=== PATIENT | female | born 1960 ===

== ENCOUNTER 2023-06-30 11:44 | Outpatient (AMB) | payer OTHER, SELFPAY ==
--- NOTE | 2023-06-30 11:46 | A.OFFPC_ITS ---
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 Transferring care from Dr Granger ([facility]). Medical records have not been requested and have not received. Airplane Charter Clerk Required: No Music Orchestrator: Not Required per policy Accompanied by: Self / Same As Patient Allergies No Known Allergies Allergy (Verified 06/30/23 11:53) Tobacco use date assessed: 06/30/23 Dental Screening Dental Screen Date: 06/30/23 Did you have a dental visit in the last 12 months?: Yes Did you have a dental problem in the last 6 months where you did not have access to dental care?: No Was dental information given to patient?: Patient has dentist HPI HPI Comments History of Present Illness Details 63-year-old female new patient presents today to establish care. Past medical history significant for anxiety, depression asthma, arthritis and lumbar back pain. 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 States pain is in the lower back constant burning/pinching pain. Patient reports pain is 8 at 10. States she does have pain that shoots down her left leg and into right buttocks. Denies any numbness tingling in lower extremities. Denies bowel or bladder. States did physical therapy 30 years for her back pain with not much improvement. Patient reports uses [id number] Tylenol and salonpas lidocaine patches as needed for pain with minimal relief. PHQ-9 positive for mild depression and ARTI-7 normal, off her referral for counseling however patient declines this time patient would to start on daily medication for anxiety and depression. [facility] Medical History (Updated 06/30/23 @ 12:10 by EMILY Ordonez) Renal cyst, acquired, right Hypertension Lumbar back pain Surgical History (Updated 06/30/23 @ 11:56 by SVETA Pedersen) No pertinent past surgical history Family History (Updated 06/30/23 @ 12:10 by EMILY Ordonez) Mother Diabetes Father No problems noted. 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 1. Little interest or pleasure in doing things: several days 2. Feeling down, depressed, or hopeless: several days 3. Trouble falling or staying asleep, or sleeping too much: nearly every day 4. Feeling tired or having little energy: several days 5. Poor appetite or overeating: nearly every day (over eating) 6. Feeling bad about yourself - or that you are a failure or have let yourself or your family down: not at all 7. Trouble concentrating on things, such as reading the newspaper or watching television: not at all 8. Moving or speaking so slowly that other people could have noticed. Or the opposite - being so fidgety or restless that you have been moving around a lot more than usual: not at all 9. Thoughts that you would be better off or of hurting yourself in some way: not at all Total score: 9 Depression Screening Interpretation: Positive Depression Screening Done: Yes 35623 - PHQ-9 Billing: Yes Source: Developed by Drs. Mikel Razo, Leigha Alexis, Иван Denson and colleagues, with an educational freddie from [employer]. Thrive Questionnaire Date Thrive assessed: 06/30/23 I am a: Patient What is your living situation today?: I have a steady place to live Within the past 12 months, did the food you bought not last and you didn't have the money to get more?: Never true Within the past 12 months, did you worry whether your food would run out before you got money to buy more?: Never true Do you have trouble paying for medicines?: No Do you have trouble getting transportation to medical appointments?: No Do you have trouble paying your heating and electricity bill?: No Do you have trouble taking care of your child, family member or friend?: No Do you have trouble with day-to-day activities such as bathing, preparing meals, shopping, managing finances, etc.?: No Are you currently unemployed and looking for a job?: No Are you interested in more education?: No Currently or been in a relationship where the following occur: no concerns reported AUDIT C Alcohol Use Questionnaire (AUDIT-C) 1. How often do you have a drink containing alcohol?: Never Total Score: 0 ARTI-7 AMB Questionnaire ARTI-7 Date ARTI - 7 assessed: 06/30/23 Feeling nervous, anxious, or on edge: 1 = Several days Not being able to stop or control worryin = Not at all Worrying too much about different things: 0 = Not at all Trouble relaxin = Several days Being so restless that it is hard to sit still: 0 = Not at all Becoming easily annoyed or irritable: 1 = Several days Feeling afraid as if something awful might happen: 1 = Several days Total ARTI-7 score (0-4 normal; 5-9 mild; 10-14 moderate; 15-21 severe): 4 Source: Developed by Drs. Mikel Razo, Leigha Alexis, Иван Denson and colleagues, with an educational freddie from [employer]. ARTI-7 Assessment Billing ARTI-7 Assessment Tool: ARTI-7 Assessment 52783 Review of Systems Const Denies chills, Denies fatigue, Denies fever(s) and Denies poor appetite Eyes Denies no additional complaints ENT Reports Normal hearing present Card Denies chest pain, Denies syncope, Denies rapid heart rate and Denies dyspnea Resp Denies cough and Denies dyspnea GI Denies change in stool character, Denies constipation, Denies diarrhea, Denies nausea and Denies vomiting Denies urinary frequency, Denies dysuria and Denies urinary urgency Musc Reports back pain, Denies numbness, Reports radiating pain into limb and Denies tingling Neuro Reports Normal hearing present, Denies confusion, Denies syncope, Denies numbness and Denies tingling Psych Denies confusion Endo Denies fatigue Physical exam (Primary Care) Vital Signs: Last Vital Signs Pulse 90 06/30/23 11:49 BP 130/62 06/30/23 11:49 Pulse Ox 97 06/30/23 11:49 Oxygen Delivery Method Room Air 06/30/23 11:49 BMI result Body Mass Index 32.4 Tobacco/Smoking Status: Tobacco use Status Tobacco use date assessed 06/30/23 06/30/23 11:59 Patient Tobacco Use Status Former Tobacco user (14 06/30/23 11:59 years ago) e-Cigarette/Vaping Use Never Used 06/30/23 11:59 PHQ-9: PHQ-9 Score PHQ-9: Total score 9 06/30/23 11:59 Depression Screening Interpretation: Positive Thrive Assessment: Date of Thrive Assessment Date Thrive assessed 06/30/23 06/30/23 11:59 Currently or been in a relationship where the following occur: no concerns reported Const General: No confusion Orientation/consciousness: No confusion HENMT Head: Yes normocephalic and Yes atraumatic Eyes Conjunctivae: conjunctivae normal Chest Chest palpation & inspection: normal inspection of the chest Resp Effort & Inspection: normal respiratory effort Auscultation: clear to auscultation bilaterally, no crackles, no rhonchi and no wheezes Cardio Rate: regular rate Rhythm: regular rhythm Heart sounds: S1 normal heart sound present and S2 normal heart sound present Peripheral pulses: dorsalis pedis present GI Inspection: Yes normal to inspection Neuro General: No confusion Cranial nerves: Yes Normal hearing present Extrem General: No edema Assessment and Plan Assessment & Plan (1) Anxiety: Code(s): F41.9 - Anxiety disorder, unspecified Plan: Escitalopram 10 mg daily sent to patient's pharmacy. Declined counseling referral. (2) Depression: Code(s): F32.A - Depression, unspecified Plan: Escitalopram 10 mg daily sent to patient's pharmacy. Declined counseling referral. (3) Lumbar back pain: Code(s): M54.50 - Low back pain, unspecified Plan: Lumbar spine x-ray ordered. Can continue on [id number] Tylenol and lidocaine patches as needed, of fered to send prescription for lidocaine patches however patient declined states she will continue to by Salonpas OTC. Referral entered to physical therapy Follow-up in 2 months if no improvement lumbar back pain following physical therapy will consider additional imaging with MRI. (4) Asthma: Code(s): J45.909 - Unspecified asthma, uncomplicated Plan: Patient reports previously on rescue inhaler if needed but has not required an inhaler recently Plan Follow-up in 2 months Keep annual physical exam scheduled in September with Dr. Montano Orders: Orders Comprehensive [place]. Panel Fast Today F41.9 - Anxiety disorder, unspecified Complete Blood Count Auto Diff Today Z13.0 - Encounter for screening for diseases of the blood and blood-forming organs and certain disorders involving the immune mechanism Lipid Panel Today Z13.220 - Encounter for screening for lipoid disorders XR lumbar spine 2-3V Today M54.50 - Low back pain, unspecified PT Evaluation and Treatment Today M54.50 - Low back pain, unspecified TSH reflex Free T4 Today Z13.29 - Encounter for screening for other suspected endocrine disorder Vitamin D 25-OH Total Today Z13.21 - Encounter for screening for nutritional disorder Medications: New escitalopram oxalate 10 mg PO DAILY 30 tabs 3RF F32.A - Depression, unspecified, F41.9 - Anxiety disorder, unspecified Coding Level of Care Code New Pt Level 4 (63567) Diagnoses Anxiety F41.9 Depression F32.A Lumbar back pain M54.50 Asthma J45.909 Additional Codes ARTI-7 Assessment Billing - ARTI-7 Assessment Tool: ARTI-7 Assessment 40874 ([id number])
[2023-06-30 11:49] VITALS: BP 130/62; PULSE 90; O2SAT 97; BMI 32.4
== END 2023-06-30 12:28 | disposition home or self-care (01) ==
PROVIDERS: Visit Provider Nurse Practitioner Family
DX: J45.909 Unspecified asthma, uncomplicated (principal); M54.50 Low back pain, unspecified; F41.9 Anxiety disorder, unspecified; F32.A Depression, unspecified
CPT/HCPCS: 96127; 99204

== ENCOUNTER 2023-07-02 09:09 | Outpatient (REF) | payer OTHER, SELFPAY ==
--- NOTE | ~2023-07-02 | XR_ITS ---
EXAMINATION: XR LUMBOSACRAL SPINE CLINICAL INFORMATION: Low back pain. COMPARISON: None available. TECHNIQUE: 3 views of the lumbosacral spine. FINDINGS: Mild rightward curvature of the lumbar spine. Advanced degenerative changes with abundant hypertrophic change in the imaged lower thoracic spine. Transitional anatomy present with asymmetric articulation of L5 with the sacral ala on the left with associated with sclerosis. 2 clips in the pelvis. Facet arthritis in the [id number]-vs-[id number] lumbar spine. Advanced multilevel lumbar spondylosis with loss of disc space height most notable at L4-L5 and L5-S1. Grade 1 anterolisthesis of L4 on L5. Possible spondylolysis at L5 is difficult to evaluate overlying bony structures. XR/XR lumbar spine 2-3V IMPRESSION: 1. Transitional anatomy present with asymmetric articulation of L5 with the sacral ala on the left with associated with sclerosis. 2. Advanced multilevel lumbar spondylosis with loss of disc space height most notable at L4-L5 and L5-S1. Grade 1 anterolisthesis of L4 on L5.
== END 2023-07-02 09:10 | disposition home or self-care (01) ==
LOC: HO.XRAY 09:09
PROVIDERS: PCP Internal Medicine; Visit Provider Nurse Practitioner Family
DX: M54.50 Low back pain, unspecified (principal)
CPT/HCPCS: 72100

== ENCOUNTER 2023-07-03 07:47 | Outpatient (REF) | payer OTHER, SELFPAY ==
[2023-07-03 08:06] LABS: MANUAL DIFF FLAG NO
[2023-07-03 08:12] LABS: Basophils Percent Auto 0.6 % (0-2); Eosinophils Absolute Auto 0.3 X10*3/uL (0.0-0.4); Eosinophils Percent Auto 3.8 % (0-4); Hemoglobin 14.4 g/dl (12.0-16.0); Imm Gran Abs Auto 0.01 X10*3/uL (0.00-0.03); Imm Gran Pct Auto 0.1 % (0.0-0.4); Lymphocytes Percent Auto 28.8 % (20-40); Mean Corpuscular HGB Conc 32.7 g/dl (31.0-35.0); Mean Corpuscular Hemoglobin 29.5 pg (27.0-33.0); Mean Corpuscular Volume 90.2 fL (80.0-98.0); Mean Platelet Volume 8.3 fL (9.4-12.3); Monocytes Absolute Auto 0.5 X10*3/uL (0.1-1.2); Monocytes Percent Auto 7.8 % (2-11); Neutrophils Absolute Auto 4.1 x10*3/uL (2.0-8.3); Neutrophils Percent Auto 58.9 % (45-73); Platelet Count 307 X10*3/uL (160-400); Red Blood Count 4.88 X10*6/uL (4.20-5.50); Red Cell Distribution Width 13.5 % (11.0-16.0); White Blood Count 6.9 X10*3/uL (4.8-10.8)
[2023-07-03 08:42] LABS: Alanine Aminotransferase 29 U/L (0-31); Albumin Level 4.1 g/dL (3.5-5.0); Alkaline Phosphatase 56 U/L (39-117); Anion Gap 14 (12-20); Aspartate Amino Transferase 23 U/L (5-31); Bilirubin Total 0.5 mg/dL (0.0-1.0); Blood Urea Nitrogen 10 mg/dL (9-16); Calcium 9.4 mg/dL (8.4-10.2); Carbon Dioxide 23 mmol/L (22-29); Chloride 106 mmol/L (96-108); Cholesterol 189 mg/dL (<200); Estimated Glomerular Filt Rate > 60; Glucose Fasting 94 mg/dL (60-99); HDL Cholesterol 66 mg/dL (>40); LDL Cholesterol Calculated 107 mg/dL (<100); Potassium 4.4 mmol/L (3.3-5.1); Sodium 139 mmol/L (135-145); Total Protein 7.4 g/dL (6.5-8.0); Triglycerides 83 mg/dL (<150)
[2023-07-03 08:58] LABS: TSH reflex Free T4 1.72 uIU/mL (0.32-4.0); Vitamin D 25-OH Total 38.4 ng/mL (>30)
== END 2023-07-03 07:48 | disposition home or self-care (01) ==
LOC: HO.LAB 07:47
PROVIDERS: PCP Internal Medicine; Visit Provider Nurse Practitioner Family
DX: Z13.21 Encounter for screening for nutritional disorder (principal); Z13.29 Encounter for screening for other suspected endocrine disorder; Z13.220 Encounter for screening for lipoid disorders; Z13.0 Encounter for screening for diseases of the blood and blood-forming organs and certain disorders involving the immune mechanism; F41.9 Anxiety disorder, unspecified
CPT/HCPCS: 36415; 80053; 80061; 82306; 84443; 85025

== ENCOUNTER 2023-11-19 14:32 | Outpatient (AMB) | payer OTHER, SELFPAY ==
--- NOTE | 2023-11-19 14:35 | MHC.PC.OV ---
Vital Signs 11/19/23 14:37 Height 5 ft 3 in Weight 178 lb BMI 31.5 BP 130/80 Blood Pressure Location Lt brachial Position Sitting Intake Visit Reasons: transferring from [facility] Intake Note: Patient here transferring of care Landing Scaler Required: No Accompanied by: Self / Same As Patient Allergies No Known Allergies Allergy (Verified 11/19/23 14:58) Medication List - Last Reconciled 11/19/23 by Yajaira Vasquez MD cholecalciferol (vitamin D3) 25 mcg PO DAILY escitalopram oxalate 10 mg PO DAILY estradiol 0.5 mg PO DAILY medroxyprogesterone 2.5 mg PO DAILY nabumetone 750 mg PO BID 30 days Tobacco use date assessed: 11/19/23 Dental Screening Dental Screen Date: 11/19/23 Did you have a dental visit in the last 12 months?: No Did you have a dental problem in the last 6 months where you did not have access to dental care?: No Was dental information given to patient?: Patient declined HPI HPI Comments History of Present Illness Details This is a 63-year-old female with mild major depression, anxiety and insomnia that complains of epigastric pain and nausea that has been happening for few weeks. I will order upper GI series and start her on ondansetron as needed to see if this helps. Depression and insomnia still present and she would like escitalopram to be increased. I recommend to take it at bedtime. [facility] Medical History (Updated 11/19/23 @ 16:27 by Yajaira Vasquez MD) Depression Renal cyst, acquired, right Hypertension Lumbar back pain Surgical History No pertinent past surgical history Family History Mother Diabetes Father No problems noted. 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 1. Little interest or pleasure in doing things: not at all 2. Feeling down, depressed, or hopeless: several days 3. Trouble falling or staying asleep, or sleeping too much: several days 4. Feeling tired or having little energy: several days 5. Poor appetite or overeating: not at all 6. Feeling bad about yourself - or that you are a failure or have let yourself or your family down: not at all 7. Trouble concentrating on things, such as reading the newspaper or watching television: not at all 8. Moving or speaking so slowly that other people could have noticed. Or the opposite - being so fidgety or restless that you have been moving around a lot more than usual: not at all 9. Thoughts that you would be better off or of hurting yourself in some way: not at all Total score: 3 Depression Screening Interpretation: Positive Depression Screening Follow-up: Existing condition and In treatment Depression Screening Done: Yes 49401 - PHQ-9 Billing: Yes Source: Developed by Drs. Mikel Razo, Leigha Alexis, Иван Denson and colleagues, with an educational freddie from [employer]. Thrive Questionnaire Date Thrive assessed: 11/19/23 I am a: Patient What is your living situation today?: I have a steady place to live Within the past 12 months, did the food you bought not last and you didn't have the money to get more?: Never true Within the past 12 months, did you worry whether your food would run out before you got money to buy more?: Never true Do you have trouble paying for medicines?: No Do you have trouble getting transportation to medical appointments?: No Do you have trouble paying your heating and electricity bill?: No Do you have trouble taking care of your child, family member or friend?: No Do you have trouble with day-to-day activities such as bathing, preparing meals, shopping, managing finances, etc.?: No Are you currently unemployed and looking for a job?: No Are you interested in more education?: No Please select the resources that you would like help with: None Currently or been in a relationship where the following occur: no concerns reported THRIVE Score: 0 AUDIT C Alcohol Use Questionnaire (AUDIT-C) 1. How often do you have a drink containing alcohol?: Never Total Score: 0 ARTI-7 AMB Questionnaire ARTI-7 Date ARTI - 7 assessed: 11/19/23 Feeling nervous, anxious, or on edge: 3 = Nearly every day Not being able to stop or control worryin = Not at all Worrying too much about different things: 1 = Several days Trouble relaxin = Several days Being so restless that it is hard to sit still: 0 = Not at all Becoming easily annoyed or irritable: 1 = Several days Feeling afraid as if something awful might happen: 0 = Not at all Total ARTI-7 score (0-4 normal; 5-9 mild; 10-14 moderate; 15-21 severe): 6 Source: Developed by Drs. Mikel Razo, Leigha Alexis, Иван Denson and colleagues, with an educational freddie from [employer]. ARTI-7 Assessment Billing ARTI-7 Assessment Tool: ARTI-7 Assessment 83247 Review of Systems Const All systems reviewed & are unremarkable except as noted in HPI and below Eyes Reports no additional complaints, Denies change in vision and Denies other visual disturbances Card Denies chest pain at rest, Denies chest pain with activity, Denies edema, Denies irregular heart rhythm, Denies claudication, Denies dyspnea, Denies dyspnea on exertion, Denies orthopnea, Denies paroxysmal nocturnal dyspnea and Denies slow heart rate Resp Denies cough, Denies dyspnea and Denies dyspnea on exertion GI Denies abdominal pain, Denies change in bowel habits, Denies excessive flatus, Denies nausea and Denies vomiting Denies urinary incontinence, Denies urinary hesitancy and Denies urinary urgency Musc Denies abnormal gait, Denies atrophy, Denies deformity and Denies limited range of motion Skin/Breast Denies bleeding lesions, Denies changing lesions and Denies rash Neuro Denies abnormal gait and Denies lack of coordination Physical exam (Primary Care) Vital Signs: Last Vital Signs BP 130/80 11/19/23 14:37 BMI result Body Mass Index 31.5 Tobacco/Smoking Status: Tobacco use Status Tobacco use date assessed 11/19/23 11/19/23 14:44 Patient Tobacco Use Status Former Tobacco user (14 11/19/23 14:44 years ago) Tobacco use type Cigarette 11/19/23 14:44 e-Cigarette/Vaping Use Never Used 11/19/23 14:44 PHQ-9: PHQ-9 Score PHQ-9: Total score 3 11/19/23 15:03 Depression Screening Interpretation: Positive Depression Screening Follow-up: Existing condition and In treatment Thrive Assessment: Date of Thrive Assessment Date Thrive assessed 11/19/23 11/19/23 14:44 Currently or been in a relationship where the following occur: no concerns reported Eyes General: appearance normal, both eyes and all related structures Eyelids: Yes eyelids normal Conjunctivae: conjunctivae normal Neck Neck: Yes normal visual inspection and Yes supple Resp Effort & Inspection: normal respiratory effort Auscultation: clear to auscultation bilaterally Cardio Jugular venous distension: no JVD Rate: regular rate Rhythm: regular rhythm Heart sounds: S1 normal heart sound present and S2 normal heart sound present Extrem General: Yes full ROM Assessment and Plan Assessment & Plan (1) Mild major depression: Code(s): F32.0 - Major depressive disorder, single episode, mild Plan: Increase escitalopram to 20 mg. (2) Epigastric pain: Code(s): R10.13 - Epigastric pain Plan: Upper GI series ordered. (3) Anxiety: Code(s): F41.9 - Anxiety disorder, unspecified Plan: Increase escitalopram to 20 mg. (4) Insomnia: Code(s): G47.00 - Insomnia, unspecified Qualifiers: Insomnia type: primary Qualified Code(s): F51.01 - Primary insomnia Plan: Increase escitalopram to 20 mg. Orders: Orders [place] upper GI series Today R10.13 - Epigastric pain Medications: New ondansetron 8 mg PO Q12H 3 days PRN 6 tabs 0RF nausea and vomiting escitalopram oxalate 20 mg PO BEDTIME 90 days 90 tabs 1RF F32.0 - Major depressive disorder, single episode, mild, F41.9 - Anxiety disorder, unspecified Discontinued escitalopram oxalate Discontinued Reason: No Longer Medically Relevant 10 mg PO DAILY 30 tabs 3RF F32.A - Depression, unspecified, F41.9 - Anxiety disorder, unspecified Coding Level of Care Code Est Pt Level 4 (98437) Diagnoses Mild major depression F32.0 Epigastric pain R10.13 Anxiety F41.9 Primary insomnia F51.01 Insomnia type: primary Additional Codes ARTI-7 Assessment Billing - ARTI-7 Assessment Tool: ARTI-7 Assessment [id number] ([id number]) Time Spent (min) 22
[2023-11-19 14:37] VITALS: BP 130/80; BMI 31.5
== END 2023-11-19 15:13 | disposition home or self-care (01) ==
PROVIDERS: PCP Internal Medicine; Visit Provider Internal Medicine
DX: R10.13 Epigastric pain (principal); F51.01 Primary insomnia; F33.0 Major depressive disorder, recurrent, mild; F41.9 Anxiety disorder, unspecified
CPT/HCPCS: 99214

== ENCOUNTER 2024-06-02 09:09 | Outpatient (AMB) | payer OTHER, SELFPAY ==
[2024-06-02 09:12] VITALS: BP 128/84; BMI 31.7
--- NOTE | 2024-06-02 09:12 | A.OFFPC_ITS ---
Vital Signs 06/02/24 09:12 Height 5 ft 3 in Weight 179 lb BMI 31.7 BP 128/84 Blood Pressure Location Lt brachial Position Sitting Intake Visit Reasons: Annual exam Intake Note: Patient here for a physical exam Generation Engineer Required: No Accompanied by: Self / Same As Patient Allergies No Known Allergies Allergy (Verified 06/02/24 09:26) Medication List - Last Reconciled 06/02/24 by Yajaira Vasquez MD cholecalciferol (vitamin D3) 25 mcg PO DAILY escitalopram oxalate 20 mg PO BEDTIME 90 days estradiol 0.5 mg PO DAILY medroxyprogesterone 2.5 mg PO DAILY nabumetone 750 mg PO BID 30 days Tobacco use date assessed: 11/19/23 Fall risk assessment: No Falls in past year Last assessed Fall Risk: 06/02/24 Dental Screening Dental Screen Date: 11/19/23 HPI HPI Comments History of Present Illness Details This is a 64-year-old female with mild major depression that comes for her physical exam. On escitalopram that does not seem to be working for depression or insomnia. I told her to take half a tab for 1 week and then start mirtazapine. She will be referred to psych outpatient to adjust medication. She also has allergic rhinitis and I will start her on montelukast. Mammogram done 2023. Pap smear done 2020 with HPV negative. Colonoscopy done 2015 and next colonoscopy should be 2025. [facility] Medical History Depression Renal cyst, acquired, right Hypertension Lumbar back pain Surgical History No pertinent past surgical history Family History Mother Diabetes Father No problems noted. 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 Mikel Razo, Leigha Alexis, Иван Denson and colleagues, with an educational freddie from [employer]. Review of Systems Const All systems reviewed & are unremarkable except as noted in HPI and below Card Denies chest pain at rest, Denies chest pain with activity, Denies edema, Denies irregular heart rhythm, Denies claudication, Denies dyspnea, Denies dyspnea on exertion, Denies orthopnea, Denies paroxysmal nocturnal dyspnea and Denies slow heart rate Resp Denies cough, Denies dyspnea and Denies dyspnea on exertion GI Denies abdominal pain, Denies change in bowel habits, Denies excessive flatus, Denies nausea and Denies vomiting Denies urinary incontinence, Denies urinary hesitancy and Denies urinary urgency Musc Denies atrophy, Denies deformity and Denies limited range of motion Skin/Breast Denies bleeding lesions, Denies changing lesions and Denies rash Psych Reports abnormal sleep pattern, Reports anxiety and Reports depression Physical exam (Primary Care) Vital Signs: Last Vital Signs BP 128/84 06/02/24 09:12 BMI result Body Mass Index 31.7 BMI Assessment/Plan discussion: High BMI High, discussed plan: lifestyle, weight reduction, dietary and physical activity Tobacco/Smoking Status: Tobacco use Status Tobacco use date assessed 11/19/23 06/02/24 09:18 Patient Tobacco Use Status Former Tobacco user (14 06/02/24 09:18 years ago) Tobacco use type Cigarette 06/02/24 09:18 e-Cigarette/Vaping Use Never Used 06/02/24 09:18 Thrive Assessment: Date of Thrive Assessment Date Thrive assessed 11/19/23 06/02/24 09:18 HENMT Head: Yes normal to inspection, Yes normocephalic and Yes atraumatic Ears: external ears normal Eyes General: appearance normal, both eyes and all related structures Eyelids: Yes eyelids normal Conjunctivae: conjunctivae normal Neck Neck: Yes normal visual inspection and Yes supple Resp Effort & Inspection: normal respiratory effort Auscultation: clear to auscultation bilaterally Cardio Jugular venous distension: no JVD Rate: regular rate Rhythm: regular rhythm Heart sounds: S1 normal heart sound present and S2 normal heart sound present GI Inspection: Yes normal to inspection Palpation (GI): Soft to palpation and nontender Auscultation: normal bowel sounds Skin General skin exam: no rashes or lesions noted Neuro General: no focal motor deficits Extrem General: Yes full ROM Psych Appearance: grossly normal Assessment and Plan Assessment & Plan (1) Physical exam: Code(s): Z00.00 - Encounter for general adult medical examination without abnormal findings Plan: Repeat in a year. (2) Mild major depression: Code(s): F32.0 - Major depressive disorder, single episode, mild Plan: Discontinue escitalopram. Start mirtazapine at bedtime. Referred to psych outpatient. (3) Allergic rhinitis: Code(s): J30.9 - Allergic rhinitis, unspecified Plan: Start montelukast. Orders: Orders Comprehensive [place]. Panel Fast Today Z00.00 - Encounter for general adult medical examination without abnormal findings Vitamin D 25-OH (D2 and D3) Today E55.9 - Vitamin D deficiency, unspecified Lipid Panel Today Z00.00 - Encounter for general adult medical examination without abnormal findings Referrals Psychiatry Outpatient Consultation Service F32.0 - Major depressive disorder, single episode, mild, F41.9 - Anxiety disorder, unspecified, F51.01 - Primary insomnia Medications: New montelukast 10 mg PO BEDTIME 30 days 30 tabs 2RF mirtazapine 15 mg PO BEDTIME 90 days 90 tabs 1RF F51.01 - Primary insomnia Discontinued escitalopram oxalate Discontinued Reason: Patient Completed Course 20 mg PO BEDTIME 90 days 90 tabs 1RF F32.0 - Major depressive disorder, single episode, mild, F41.9 - Anxiety disorder, unspecified Coding Level of Care Code Est Pt Level 3 (28591) Est Pt Prev Care 40-64y(12904) Diagnoses Physical exam Z00.00 Mild major depression F32.0 Allergic rhinitis J30.9 Time Spent (min) 33
== END 2024-06-02 09:38 | disposition home or self-care (01) ==
PROVIDERS: PCP Internal Medicine; Visit Provider Internal Medicine
DX: Z00.00 Encounter for general adult medical examination without abnormal findings (principal); J30.9 Allergic rhinitis, unspecified; F32.0 Major depressive disorder, single episode, mild

== ENCOUNTER → 2024-06-02 09:09 | Outpatient (BNVA) | payer OTHER, SELFPAY | PROVIDERS: PCP Internal Medicine; Visit Provider Internal Medicine | DX: Z00.01 Encounter for general adult medical examination with abnormal findings (principal); F32.0 Major depressive disorder, single episode, mild; J30.9 Allergic rhinitis, unspecified ==

== ENCOUNTER 2024-07-05 14:43 | Outpatient (AMB) | payer OTHER, SELFPAY ==
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
== END 2024-07-05 15:49 | disposition home or self-care (01) ==
LOC: HO.HOP 14:43
PROVIDERS: PCP Internal Medicine; Visit Provider Clinical Nurse Specialist Psychiatric/Mental Health
DX: F32.0 Major depressive disorder, single episode, mild (principal); F51.01 Primary insomnia; F41.9 Anxiety disorder, unspecified
CPT/HCPCS: 90792

== ENCOUNTER → 2024-07-05 14:43 | Outpatient (BNVA) | payer OTHER, SELFPAY | PROVIDERS: PCP Internal Medicine; Visit Provider Clinical Nurse Specialist Psychiatric/Mental Health | DX: F32.0 Major depressive disorder, single episode, mild (principal); F51.01 Primary insomnia; F41.9 Anxiety disorder, unspecified | CPT/HCPCS: 90792 ==

== ENCOUNTER 2024-07-27 14:58 | Outpatient (AMB) | payer OTHER, SELFPAY ==
--- NOTE | 2024-07-27 15:09 | A.OFFPC_ITS ---
Vital Signs 07/27/24 15:12 Height 5 ft 3 in Weight 182 lb BMI 32.2 BP 132/80 Blood Pressure Location Lt brachial Position Sitting Intake Visit Reasons: Cough Explosive Technician Required: No Accompanied by: Self / Same As Patient Allergies No Known Allergies Allergy (Verified 07/27/24 15:37) Medication List - Last Reconciled 07/27/24 by Yajaira Vasquez MD cholecalciferol (vitamin D3) 25 mcg PO DAILY duloxetine (Cymbalta) 30 mg PO DAILY estradiol 0.5 mg PO DAILY hydroxyzine HCl 25 mg PO BEDTIME medroxyprogesterone 2.5 mg PO DAILY montelukast 10 mg PO BEDTIME 30 days nabumetone 750 mg PO BID 30 days Tobacco use date assessed: 11/19/23 Fall risk assessment: No Falls in past year Last assessed Fall Risk: 07/27/24 Dental Screening Dental Screen Date: 07/27/24 Did you have a dental visit in the last 12 months?: No Was dental information given to patient?: Patient has dentist HPI HPI Comments History of Present Illness Details This is a 64 year old female with fibromyalgia, mild major depression and low vitamin D that comes today for follow up on her conditions. Depression and fibromyalgia stable with duloxetine. On vitamin D supplements for low vitamin D. No chest pain or shortness of breath. No cough. [facility] Medical History (Updated 07/27/24 @ 17:38 by Yajaira Vasquez MD) Depression Renal cyst, acquired, right Hypertension Lumbar back pain Surgical History No pertinent past surgical history Family History Mother Diabetes Father No problems noted. 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 Mikel Razo, Leigha Alexis, Иван Denson and colleagues, with an educational freddie from [employer]. Review of Systems Const All systems reviewed & are unremarkable except as noted in HPI and below Card Denies chest pain at rest, Denies chest pain with activity, Denies edema, Denies irregular heart rhythm, Denies claudication, Denies dyspnea, Denies dyspnea on exertion, Denies orthopnea, Denies paroxysmal nocturnal dyspnea and Denies slow heart rate Resp Denies cough, Denies dyspnea and Denies dyspnea on exertion Physical exam (Primary Care) Vital Signs: Last Vital Signs BP 132/80 07/27/24 15:12 BMI result Body Mass Index 32.2 BMI Assessment/Plan discussion: High BMI High, discussed plan: lifestyle, weight reduction, dietary and physical activity Tobacco/Smoking Status: Tobacco use Status Tobacco use date assessed 11/19/23 07/27/24 15:14 Patient Tobacco Use Status Former Tobacco user (07/27/24 15:14 years ago) Tobacco use type Cigarette 07/27/24 15:14 e-Cigarette/Vaping Use Never Used 07/27/24 15:14 Thrive Assessment: Date of Thrive Assessment Date Thrive assessed 11/19/23 07/27/24 15:14 Resp Effort & Inspection: normal respiratory effort Auscultation: clear to auscultation bilaterally Cardio Jugular venous distension: no JVD Rate: regular rate Rhythm: regular rhythm Heart sounds: S1 normal heart sound present and S2 normal heart sound present Extrem General: Yes full ROM Office Procedures Flu Questionnaire Does the patient have a severe egg allergy?: No Does the patient have severe life threatening allergies?: No Does the patient have a fever or illness today?: No Has the patient ever had Guillain-[place] Syndrome?: No Has the patient ever had any past reaction to a flu shot?: No Immunizations Fluarix Triv [id number] (PF) 45 mcg (15 mcg x 3)/0.5 mL IM syringe Performing Provider: Yajaira Vasquez MD [facility] [place] [facility] Administered by: SVETA Shah on 07/27/24 15:53 Dose Route Admin Location Dispensed Lot Number Expiration Date NDC [place] Kn[place] 0.5 mL IM Right Deltoid 0.5 mL [id number] 03/13/25 [id number] [place] VIS Given Date VIS Provided VIS Publication Date 07/27/24 Single Vaccine 21 Eligibility Eligibility Date Funding Source Not VFC Eligible 07/27/24 Private Coding Level of Care Code Est Pt Level 3 (96094) Complex EM visit Add On G2211 Diagnoses Mild major depression F32.0 Fibromyalgia M79.7 Hypovitaminosis D E55.9 Time Spent (min) 19 Assessment & Plan Assessment & Plan (1) Mild major depression: Code(s): F32.0 - Major depressive disorder, single episode, mild Category: Medical Plan: Continue Duloxetine. (2) Fibromyalgia: Code(s): M79.7 - Fibromyalgia Category: Medical Plan: Continue Duloxetine. (3) Hypovitaminosis D: Code(s): E55.9 - Vitamin D deficiency, unspecified Category: Medical Plan: Continue Vit D supplements. Orders: Orders Vitamin D 25-OH Total Today E55.9 - Vitamin D deficiency, unspecified Influenza [phone] Immunization Today Z23 - Encounter for immunization
[2024-07-27 15:12] VITALS: BP 132/80; BMI 32.2
== END 2024-07-27 15:53 | disposition home or self-care (01) ==
PROVIDERS: PCP Internal Medicine; Visit Provider Internal Medicine
DX: F32.0 Major depressive disorder, single episode, mild (principal); M79.7 Fibromyalgia; E55.9 Vitamin D deficiency, unspecified; Z23 Encounter for immunization

== ENCOUNTER → 2024-07-27 14:58 | Outpatient (BNVA) | payer OTHER, SELFPAY | PROVIDERS: PCP Internal Medicine; Visit Provider Internal Medicine | DX: F32.0 Major depressive disorder, single episode, mild (principal); M79.7 Fibromyalgia; E55.9 Vitamin D deficiency, unspecified; Z79.899 Other long term (current) drug therapy; Z23 Encounter for immunization | CPT/HCPCS: 90471; 90656 ==

== ENCOUNTER 2024-08-01 16:16 | Outpatient (AMB) | payer OTHER, SELFPAY ==
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
== END 2024-08-01 16:44 | disposition home or self-care (01) ==
LOC: HO.HOP 16:16
PROVIDERS: PCP Internal Medicine; Visit Provider Clinical Nurse Specialist Psychiatric/Mental Health
DX: F32.1 Major depressive disorder, single episode, moderate (principal); F41.9 Anxiety disorder, unspecified
CPT/HCPCS: 99214

== ENCOUNTER → 2024-08-01 16:16 | Outpatient (BNVA) | payer OTHER, SELFPAY | PROVIDERS: PCP Internal Medicine; Visit Provider Clinical Nurse Specialist Psychiatric/Mental Health ==

== ENCOUNTER 2024-08-29 09:10 | Outpatient (AMB) | payer OTHER, SELFPAY ==
--- OUTSIDE RECORDS SUMMARY | 2024-08-29 09:16 | XMS_ITS | Patient Health Record ---
Author Organization [facility] Address [address] [place] [address] Care Team Providers Care Solderer Dipper Name Role Phone Eun DILL, [facility] Primary Care Provider Unavailab Benito Reyes Unavailable [phone] Allergies Allergen (clinical drug ingredient) Drug/Non Drug Allergy documented on EMR Reaction Allergy Type Onset Date Status seasonal (uncoded) Unknown Allergy A ctive Reason For Referral No Information Medications Medication SIG (Take, Route, Frequency, Duration) Notes Start Date End Date Status Estradiol 0.5 MG 1 tablet Orally Once a day for 30 day(s) Active ASO Ankle/Foot Stablizing AFO As directe d Wear Daily for as needed 07/03/2022 Active D3 Active medroxyPROGESTERone Acetate 2.5 MG 1 tablet with food Orally Once a day Active Social History Tobacco Use: Social History Observation Description Date Details (start date - stop date) Former Smoker NA - NA Tobacco Use/Smoking Question Answer Notes Are you a: former smoker Alcohol Screen Question Answer Notes Did you have a drink containing alcohol in the p ast year? No Points 0 Interpretation Negative Tobacco use other than smoking: Question Answer Notes Are you an other tobacco user? No Problems Problem Type SNOMED Code ICD Code Onset Dates Problem Status W/U Status Risk Notes Problem Achilles bursitis (067561180) Achilles tendinitis, left leg (M76.62) Active confirmed Problem Peroneal tendinitis (80434072) Peroneal tendinitis, left leg (M76.72) Active confirmed Plan Of Treatment Pending Test Test Name Order Date X ray : Ankle, left 3V 07/03/2022 [id number] TENDON SHEATH/LIGAMENT 1 Insurance Providers Payer Name Payer Address Payer Phone Subscriber Number Group Number Insured Name Patient Relationship to Insured Coverage Start Date Coverage End Date [employer] [address] [place]issa [place]ienne, [place] [id number] [phone] [id number] Smitha Willis Self - patient is the insured Medical (General) History Medical History History ICD Code Anxiety Arthritis asthma Back,Hip,and Knee pain Depression Chicken pox cyst, kidney Surgical History Surgery Date(Month/Year)
--- NOTE | 2024-08-29 09:21 | MHC.PC.OV ---
Vital Signs 08/29/24 09:23 Height 5 ft 3 in Weight 186 lb 2 oz BMI 33.0 BP 120/80 Blood Pressure Location Lt brachial Position Sitting Pulse 88 Pulse Source Pulse Oximeter Pulse Oximetry (%) 97 Oxygen Delivery Method Room Air Intake Visit Reasons: Bronchitis Intake Note: Patient is here to follow up on Bronchitis. Software Configuration Specialist Required: No Hog Sawyer: Not Required per policy Accompanied by: Self / Same As Patient Allergies No Known Allergies Allergy (Verified 08/29/24 09:53) Medication List - Last Reconciled 08/29/24 by Karl Hare MD cholecalciferol (vitamin D3) 25 mcg PO DAILY estradiol 0.5 mg PO DAILY hydroxyzine HCl 50 mg (2 x 25 mg) PO BEDTIME medroxyprogesterone 2.5 mg PO DAILY montelukast 10 mg PO BEDTIME 30 days nabumetone 750 mg PO BID 30 days Tobacco use date assessed: 08/29/24 Fall risk assessment: No Falls in past year Last assessed Fall Risk: 08/29/24 Dental Screening Dental Screen Date: 07/27/24 HPI Bronchitis HPI Details Patient presents for a sick visit. Reporting symptoms of sinus congestion, sore throat and difficulty swallowing. Low-grade fever. No family member is sick. No recent travel. Patient reports symptoms of malaise and fatigue. [facility] Medical History Depression Renal cyst, acquired, right Hypertension Lumbar back pain Surgical History No pertinent past surgical history Family History Mother Diabetes Father No problems noted. 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 Mikel Razo, Leigha Alexis, Иван Denson and colleagues, with an educational freddie from [employer]. Physical exam (Primary Care) Vital Signs: Last Vital Signs Pulse 88 08/29/24 09:23 BP 120/80 08/29/24 09:23 Pulse Ox 97 08/29/24 09:23 Oxygen Delivery Method Room Air 08/29/24 09:23 BMI result Body Mass Index 33.0 Tobacco/Smoking Status: Tobacco use Status Tobacco use date assessed 08/29/24 08/29/24 09:45 Patient Tobacco Use Status Former Tobacco user (14 08/29/24 09:45 years ago) Tobacco use type Cigarette 08/29/24 09:45 e-Cigarette/Vaping Use Never Used 08/29/24 09:45 Thrive Assessment: Date of Thrive Assessment Date Thrive assessed 11/19/23 08/29/24 09:45 Const General: cooperative and healthy appearing Nutritional Appearance: well nourished Orientation/consciousness: patient oriented x3 Limitations: no limitations HENMT Head: Yes normal to inspection Eyes General: appearance normal, both eyes and all related structures Neck Neck: Yes normal visual inspection Chest Chest palpation & inspection: normal palpation of entire chest wall Resp Effort & Inspection: normal respiratory effort Neuro General: patient oriented x3 Coding Level of Care Code Est Pt Level 3 (06947) Diagnoses Upper respiratory tract infection J06.9 Assessment & Plan Assessment & Plan (1) Upper respiratory tract infection: Code(s): J06.9 - Acute upper respiratory infection, unspecified Plan: Antibiotics ordered. Increase fluid intake. Tylenol for aches and pains. If symptoms worsen, follow-up here for a recheck.
[2024-08-29 09:23] VITALS: BP 120/80; PULSE 88; O2SAT 97; BMI 33.0
== END 2024-08-29 10:13 | disposition home or self-care (01) ==
PROVIDERS: PCP Internal Medicine; Visit Provider Internal Medicine
DX: J06.9 Acute upper respiratory infection, unspecified (principal)

== ENCOUNTER 2024-08-30 09:10 | Outpatient (AMB) | payer SELFPAY ==
--- NOTE | 2024-08-30 09:14 | MHC.OFFVISPS ---
Intake Intake Visit Reasons: f/u consultation Alterations Supervisor Required: Yes Allergies No Known Allergies Allergy (Verified 08/29/24 09:53) Medication List - Last Reconciled 08/30/24 by Barb Dumas APRN albuterol sulfate 90 mcg/actuation 1 inh inhalation QID PRN azithromycin take 500 mg today (day 1), then 250 mg for 4 days (days 2-5) PO cholecalciferol (vitamin D3) 25 mcg PO DAILY duloxetine 60 mg PO DAILY estradiol 0.5 mg PO DAILY hydroxyzine HCl 50 mg (2 x 25 mg) PO BEDTIME medroxyprogesterone 2.5 mg PO DAILY montelukast 10 mg PO BEDTIME 30 days nabumetone 750 mg PO BID 30 days prednisone 60 mg (3 x 20 mg) PO DAILY HPI- Psychiatric Chief Complaint: f/u consultation HPI Narrative: pt stopped cymbalta and hydroxyzine. she felt she was gaining weight from cymbalta was causing weight gain; the hydroxyzine did not help sleep; she restarted the remeron and took 30 mg at bedtime x 10 days. tolerating the remron and sleeping 6-7 hours with one awakening to use bathroom. PHQ9= 16 GAD7=13. No SI or HI Past Psychiatric History: no IPLOC, no PHP no IOP , no hx of therapy or psychiatry in past Subjective Subjective Subjective Medication Compliance: Yes Review of Systems Medical Review of Systems: unchanged Mental Status Exam Mental Status Exam Patient Appearance: Well Grooomed and Appropriate Patient Orientation: Person, Place, Time and Situation Level of Consciousness: Awake, Appropriate and Alert Patient Behavior: Appropriate and Cooperative Mood Description: Calm Affect Description: Calm Patient Cognition Impaired: No Ability to Follow Directions: Good Speech Pattern: Clear and Appropriate Memory Description: Intact Hallucinations: None Delusions: Not Present Thought Process: Intact and Goal Oriented Thought Content: positive for Intact and positive for Goal Oriented Judgement: Good Assessment and Plan Assessment & Plan (1) Major depressive disorder, single episode, moderate: Status: Acute Code(s): F32.1 - Major depressive disorder, single episode, moderate (2) Anxiety: Status: Acute Code(s): F41.9 - Anxiety disorder, unspecified Plan continue remeron 30 mg at bedtime hydroxyzine 50 mg at bedtime Medications: New mirtazapine (Remeron) 30 mg PO BEDTIME 90 tabs 0RF Discontinued hydroxyzine HCl Take 20 minutes before bedtime Discontinued Reason: Doctor's Order 50 mg (2 x 25 mg) PO BEDTIME 60 tabs 2RF Counseling and coordination of Care Pt. Self Management counseling: Maintenance-social rhythm, Mod caffeine/ETOH intake and Behavior activation Medication management counseling: Effectiveness, Side effects, Dosing range, Duration, Drug interaction and Adherence Diagnosis and Prognosis Counseling: Accuracy of diagnosis, Prognosis over time, Impact of diagnosis on life functions, Impact of family relationship, Problematic behaviors secondary to diagnosis and Adequacy of current interventions Details: I spent 40 minutes reviewing the record, seeing the patient and documenting in the medical record. Counseling provided to the patient/caregiver as outlined below. Addressed patient/caregiver concerns regarding current medication regime including effective adherence. Addressed patient/caregiver concerns regarding diagnosis and prognosis including accuracy of diagnosis, prognosis over time, impact of diagnosis. Addressed patient/caregiver concerns regarding impact of recent stressors. [facility] Medical History Depression Renal cyst, acquired, right Hypertension Lumbar back pain Surgical History No pertinent past surgical history Family History Mother Diabetes Father No problems noted. 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 She attends [employer] 3 to 4 times a week. Substance History: none Trauma History: denies childhood; in adulthood loss of son Coding Level of Care Code Est Pt Level 4 (07787) Diagnoses Major depressive disorder, single episode, moderate F32.1 Anxiety F41.9
--- OUTSIDE RECORDS SUMMARY | 2024-08-30 09:17 | XMS_ITS | Patient Health Record ---
Author Organization [facility] Address [address] [place] [address] Care Team Providers Care Doughnut Fryer Name Role Phone Eun DILL, [facility] Primary Care Provider Unavailab Benito Reyes Unavailable [phone] Allergies Allergen (clinical drug ingredient) Drug/Non Drug [...] W/U Status Risk Notes Problem Achilles bursitis (314110355) Achilles tendinitis, left leg (M76.62) Active confirmed Problem Peroneal tendinitis (00381899) Peroneal tendinitis, left leg (M76.72) Active confirmed Plan Of Treatment Pending Test Test Name Order Date X ray : Ankle, left 3V 07/03/2022 [id number] TENDON SHEATH/LIGAMENT 1 Insurance Providers Payer Name Payer Address Payer Phone Subscriber Number Group Number Insured Name Patient Relationship to Insured Coverage Start Date Coverage End Date [facility] [address] Nicolemerissa etienne, [place] [address] [phone] [id number] Smitha Willis Self - patient is the insured Medical (General) History Medical History History ICD Code Anxiety Arthritis asthma Back,Hip,and Knee pain Depression Chicken pox cyst, kidney Surgical History Surgery Date(Month/Year)
== END 2024-08-30 09:43 | disposition home or self-care (01) ==
LOC: HO.HOP 09:10
PROVIDERS: PCP Internal Medicine; Visit Provider Clinical Nurse Specialist Psychiatric/Mental Health
DX: F32.1 Major depressive disorder, single episode, moderate (principal); F41.9 Anxiety disorder, unspecified
CPT/HCPCS: 99214

== ENCOUNTER 2024-09-15 15:06 | Outpatient (AMB) | payer OTHER, SELFPAY ==
[2024-09-15 15:13] VITALS: BP 130/86; PULSE 80; O2SAT 94; BMI 33.9
--- NOTE | 2024-09-15 15:13 | MHC.PC.OV ---
Vital Signs 09/15/24 15:13 Height 5 ft 3 in Weight 191 lb 8 oz BMI 33.9 BP 130/86 Blood Pressure Location Lt brachial Position Sitting Pulse 80 Pulse Source Pulse Oximeter Pulse Oximetry (%) 94 Oxygen Delivery Method Room Air Intake Visit Reasons: Cough / fever Intake Note: The patient is here for bronchitis that has been ongoing for the past three weeks and reports worsening symptoms, including a sore throat, phlegmy cough, and post-nasal drip. The patient was previously treated but states the medications were ineffective and is now also experiencing headaches. Burning Supervisor Required: No Accompanied by: Self / Same As Patient Allergies No Known Allergies Allergy (Verified 09/15/24 15:37) Medication List - Last Reconciled 09/15/24 by Yajaira Vasquez MD albuterol sulfate 90 mcg/actuation 1 inh inhalation QID PRN cholecalciferol (vitamin D3) 25 mcg PO DAILY estradiol 0.5 mg PO DAILY medroxyprogesterone 2.5 mg PO DAILY mirtazapine (Remeron) 30 mg PO BEDTIME montelukast 10 mg PO BEDTIME 30 days nabumetone 750 mg PO BID 30 days Tobacco use date assessed: 09/15/24 Fall risk assessment: No Falls in past year Last assessed Fall Risk: 09/15/24 Dental Screening Dental Screen Date: 09/15/24 Did you have a dental visit in the last 12 months?: Yes Did you have a dental problem in the last 6 months where you did not have access to dental care?: No Was dental information given to patient?: Patient has dentist HPI HPI Comments History of Present Illness Details The patient is a 64-year-old female presenting with respiratory symptoms. The onset was three weeks ago, initially noticed at her workplace, where there was a likely exposure to illness. The patient reports pulmonary symptoms, but she is experiencing congestion and mild pain in the pharyngeal region. The patient has undergone frequent COVID-19 testing due to workplace exposure, with negative results. She has not been tested for influenza or respiratory syncytial virus (RSV). She denies ear pain but mentions some mild discomfort in the pharyngeal region. The patient also suffers from depression and anxiety, for which outpatient follow-up and medication management have been established. She reports compliance with medications, including Remeron at night for moderate major depression, and denies any current thoughts of self-harm. She quit smoking some years ago and denies current alcohol use. [facility] Medical History (Updated 09/15/24 @ 16:38 by Yajaira Vasquez MD) Depression Renal cyst, acquired, right Hypertension Lumbar back pain Surgical History No pertinent past surgical history Family History Mother Diabetes Father No problems noted. 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 1. Little interest or pleasure in doing things: more than half the days 2. Feeling down, depressed, or hopeless: nearly every day 3. Trouble falling or staying asleep, or sleeping too much: nearly every day 4. Feeling tired or having little energy: nearly every day 5. Poor appetite or overeating: nearly every day 6. Feeling bad about yourself - or that you are a failure or have let yourself or your family down: nearly every day 7. Trouble concentrating on things, such as reading the newspaper or watching television: more than half the days 8. Moving or speaking so slowly that other people could have noticed. Or the opposite - being so fidgety or restless that you have been moving around a lot more than usual: more than half the days 9. Thoughts that you would be better off or of hurting yourself in some way: not at all Total score: 21 Depression Screening Interpretation: Positive (no suicidal thoughts) Depression Screening Follow-up: Existing condition, In treatment and Follow-up Visit Requested Depression Screening Done: Yes 37242 - PHQ-9 Billing: Yes Source: Developed by Drs. Mikel Razo, Иван Perezke and colleagues, with an educational freddie from [employer]. Thrive Questionnaire Date Thrive assessed: 09/15/24 I am a: Patient What is your living situation today?: I have a steady place to live Within the past 12 months, did the food you bought not last and you didn't have the money to get more?: Never true Within the past 12 months, did you worry whether your food would run out before you got money to buy more?: Never true Do you have trouble paying for medicines?: No Do you have trouble getting transportation to medical appointments?: No Do you have trouble paying your heating and electricity bill?: No Do you have trouble taking care of your child, family member or friend?: No Do you have trouble with day-to-day activities such as bathing, preparing meals, shopping, managing finances, etc.?: No Are you currently unemployed and looking for a job?: No Are you interested in more education?: No Please select the resources that you would like help with: None Currently or been in a relationship where the following occur: No concerns reported THRIVE Score: 0 AUDIT C Alcohol Use Questionnaire (AUDIT-C) 1. How often do you have a drink containing alcohol?: Never 3. How often do you have six or more drinks on one occasion?: Never Total Score: 0 ARTI-7 AMB Questionnaire ARTI-7 Date ARTI - 7 assessed: 09/15/24 Feeling nervous, anxious, or on edge: 3 = Nearly every day Not being able to stop or control worryin = More than half the days Worrying too much about different things: 3 = Nearly every day Trouble relaxin = Nearly every day Being so restless that it is hard to sit still: 3 = Nearly every day Becoming easily annoyed or irritable: 3 = Nearly every day Feeling afraid as if something awful might happen: 2 = More than half the days Total ARTI-7 score (0-4 normal; 5-9 mild; 10-14 moderate; 15-21 severe): 19 Source: Developed by Drs. Mikel Razo, Иван Perez and colleagues, with an educational freddie from [employer]. ARTI-7 Assessment Billing ARTI-7 Assessment Tool: ARTI-7 Assessment 16356 Review of Systems Const All systems reviewed & are unremarkable except as noted in HPI and below ENT Reports nasal congestion, Reports sinus pressure and Reports sore throat Card Denies chest pain at rest, Denies chest pain with activity, Denies edema, Denies irregular heart rhythm, Denies claudication, Reports dyspnea, Denies orthopnea, Denies paroxysmal nocturnal dyspnea and Denies slow heart rate Resp Reports chest congestion, Reports cough, Reports excessive phlegm production, Reports dyspnea and Reports wheezing Aller/Immun Reports wheezing Physical exam (Primary Care) Vital Signs: Last Vital Signs Pulse 80 09/15/24 15:13 BP 130/86 09/15/24 15:13 Pulse Ox 94 09/15/24 15:13 Oxygen Delivery Method Room Air 09/15/24 15:13 BMI result Body Mass Index 33.9 BMI Assessment/Plan discussion: High BMI High, discussed plan: lifestyle, weight reduction, dietary and physical activity Tobacco/Smoking Status: Tobacco use Status Tobacco use date assessed 09/15/24 09/15/24 15:25 Patient Tobacco Use Status Former Tobacco user (14 09/15/24 15:15 years ago) Tobacco use type Cigarette 09/15/24 15:15 e-Cigarette/Vaping Use Never Used 09/15/24 15:15 PHQ-9: PHQ-9 Score PHQ-9: Total score 21 09/15/24 16:12 Depression Screening Interpretation: Positive (no suicidal thoughts) Depression Screening Follow-up: Existing condition, In treatment and Follow-up Visit Requested Thrive Assessment: Date of Thrive Assessment Date Thrive assessed 09/15/24 09/15/24 15:25 Currently or been in a relationship where the following occur: No concerns reported [facility] General nose exam: Nasal discharge present Face and sinus: Yes sinus tenderness Mouth: other (post nasal drip) Throat: Yes postnasal drainage Resp Effort & Inspection: audible wheezes Auscultation: wheezes expiratory wheezes and lower bilaterally Cardio Jugular venous distension: no JVD Rate: regular rate Rhythm: regular rhythm Heart sounds: S1 normal heart sound present and S2 normal heart sound present Extrem General: Yes full ROM Coding Level of Care Code Est Pt Level 4 (40320) Complex EM visit Add On G2211 Diagnoses URI (upper respiratory infection) J06.9 Major depressive disorder, single episode, moderate F32.1 Mild persistent asthma without complication J45.30 Asthma severity: mild Asthma persistence: persistent Asthma complication type: uncomplicated Anxiety F41.9 Additional Codes ARTI-7 Assessment Billing - ARTI-7 Assessment Tool: ARTI-7 Assessment 90349 ([id number]) PHQ-9 - 79398 - PHQ-9 Billing: Yes ([id number]) Time Spent (min) 21 Assessment & Plan Assessment & Plan (1) URI (upper respiratory infection): Code(s): J06.9 - Acute upper respiratory infection, unspecified Category: Medical (2) Major depressive disorder, single episode, moderate: Code(s): F32.1 - Major depressive disorder, single episode, moderate Category: Medical (3) Asthma: Code(s): J45.909 - Unspecified asthma, uncomplicated Category: Medical Qualifiers: Asthma severity: mild Asthma persistence: persistent Asthma complication type: uncomplicated Qualified Code(s): J45.30 - Mild persistent asthma, uncomplicated (4) Anxiety: Code(s): F41.9 - Anxiety disorder, unspecified Category: Medical Plan - Prescribe antibiotics for suspected bacterial component of respiratory illness. - Prescribe prednisone to address the respiratory symptoms and improve pulmonary function. - Recommend flu and RSV testing to determine if the respiratory illness is due to these viruses. - Continue current psychiatric medications for depression and anxiety and follow up with outpatient care. Patient was informed and verbally consented to the use of an ambient scribe for clinic note documentation during this visit. During the visit, I discussed the possibility of a viral upper respiratory infection with the patient, given the workplace exposure and onset of symptoms three weeks ago. I explained the benefits of starting antibiotics and prednisone to manage the current symptoms and improve her respiratory condition. I advised obtaining flu and RSV tests to rule out or confirm these as the cause of her symptoms. We reviewed her psychiatric medications, including the new prescription of Remeron for depression, and reinforced the importance of adhering to her medication regimen. I explained the necessity of stopping tobacco use, and she confirmed she has been abstinent for several years. I recommended she update her tests after the visit if her symptoms persist. Orders: Orders SARS-CoV2/FLU/RSV Today R09.89 - Other specified symptoms and signs involving the circulatory and respiratory systems Medications: New prednisone Take 4 tabs for the first 2 days, then 3 tabs for the next 2 days, then 2 tabs for the next 2 days 10 mg PO DIRECTED 20 tabs 0RF 8 days azithromycin Take 2 tabs the first day, then 1 tab the next 4 days 250 mg PO DAILY 6 tabs 0RF 5 days Patient Instructions: - Take all prescribed medications exactly as directed. - Complete the full course of antibiotics, even if symptoms improve. - Use prednisone as discussed to help open airways. - Proceed to get flu and RSV testing. - Continue avoiding tobacco and alcohol. - Follow up with outpatient mental health management as scheduled. - Return if symptoms worsen or new symptoms arise.
--- OUTSIDE RECORDS SUMMARY | 2024-09-15 16:36 | XMS_ITS | Patient Health Record ---
Author Organization [facility] Address [address] [place] [address] Care Team Providers Care Portfolio Accountant Name Role Phone Eun DILL, [facility] Primary Care Provider Unavailab Benito Reyes Unavailable [phone] Allergies Allergen (clinical drug ingredient) Drug/Non Drug [...] W/U Status Risk Notes Problem Achilles bursitis (246363953) Achilles tendinitis, left leg (M76.62) Active confirmed Problem Peroneal tendinitis (90676554) Peroneal tendinitis, left leg (M76.72) Active confirmed Plan Of Treatment Pending Test Test Name Order Date X ray : Ankle, left 3V 07/03/2022 [id number] TENDON SHEATH/LIGAMENT 1 Insurance Providers Payer Name Payer Address Payer Phone Subscriber Number Group Number Insured Name Patient Relationship to Insured Coverage Start Date Coverage End Date [facility] [address]mer[address] etienne, [place] [address] [id number] Smitha Willis Self - patient is the insured Medical (General) History Medical History History ICD Code Anxiety Arthritis asthma Back,Hip,and Knee pain Depression Chicken pox cyst, kidney Surgical History Surgery Date(Month/Year)
== END 2024-09-15 15:47 | disposition home or self-care (01) ==
LOC: HO.HMCH 15:06
PROVIDERS: PCP Internal Medicine; Visit Provider Internal Medicine
DX: J06.9 Acute upper respiratory infection, unspecified (principal); F32.1 Major depressive disorder, single episode, moderate; J45.30 Mild persistent asthma, uncomplicated; F41.9 Anxiety disorder, unspecified

== ENCOUNTER 2024-09-15 15:06 | Outpatient (REF) | payer OTHER, SELFPAY ==
[2024-09-15 18:08] LABS: Influenza A PCR NEGATIVE (Negative); Influenza B PCR NEGATIVE (Negative); Resp Syncy Virus RNA Qual PCR NEGATIVE (Negative); SARS COV2 PCR INHOUSE NEGATIVE (Negative)
== END 2024-09-15 15:07 | disposition home or self-care (01) ==
LOC: HO.LAB 15:06
PROVIDERS: PCP Internal Medicine; Visit Provider Internal Medicine
DX: R09.89 Other specified symptoms and signs involving the circulatory and respiratory systems (principal); J06.9 Acute upper respiratory infection, unspecified; F32.1 Major depressive disorder, single episode, moderate; J45.30 Mild persistent asthma, uncomplicated; F41.9 Anxiety disorder, unspecified
CPT/HCPCS: 0241U; 96127

== ENCOUNTER 2024-09-27 10:52 | Outpatient (AMB) | payer OTHER, SELFPAY ==
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
--- OUTSIDE RECORDS SUMMARY | 2024-09-27 12:48 | XMS_ITS | Patient Health Record ---
Author Organization [facility] Address [address] [place] [address] Care Team Providers Care Classification Analyst Name Role Phone Eun DILL, [facility] Primary Care Provider Unavailab Benito Reyes Unavailable [phone] Allergies Allergen (clinical drug ingredient) Drug/Non Drug [...] W/U Status Risk Notes Problem Achilles bursitis (909947821) Achilles tendinitis, left leg (M76.62) Active confirmed Problem Peroneal tendinitis (63445144) Peroneal tendinitis, left leg (M76.72) Active confirmed Plan Of Treatment Pending Test Test Name Order Date X ray : Ankle, left 3V 07/03/2022 [id number] TENDON SHEATH/LIGAMENT 1 Insurance Providers Payer Name Payer Address Payer Phone Subscriber Number Group Number Insured Name Patient Relationship to Insured Coverage Start Date Coverage End Date [facility] [address] Nicolemerissa etienne, [place] [id number] Smitha Willis Self - patient is the insured Medical (General) History Medical History History ICD Code Anxiety Arthritis asthma Back,Hip,and Knee pain Depression Chicken pox cyst, kidney Surgical History Surgery Date(Month/Year)
== END 2024-09-27 10:52 | disposition home or self-care (01) ==
LOC: HO.HOP 10:52
PROVIDERS: PCP Internal Medicine; Visit Provider Clinical Nurse Specialist Psychiatric/Mental Health
DX: F32.1 Major depressive disorder, single episode, moderate (principal)
CPT/HCPCS: 99214

== ENCOUNTER 2024-10-18 17:13 | Outpatient (AMB) | payer OTHER, SELFPAY ==
--- OUTSIDE RECORDS SUMMARY | 2024-10-18 17:15 | XMS_ITS | Clinical Summary ---
Author Organization [facility] Address [address] [place] [address] Care Team Providers Care Outpatient Dietitian Name Role Phone Leatha Ramirez PA-C Primary Care Provider [phone] Source Comments PLEASE NOTE, if this patient is a minor, it may be UNLAWFUL to discuss sensitive information that is contained in these records (such as FAMILY PLANNING, MENTAL HEALTH or SUBSTANCE ABUSE) with the minor patient's parent or other person without the patient's specific authorization.[facility] Allergies No known active allergies Medications lisinopril (PRINIVIL,ZESTRIL) 5 mg tablet 3 4 Active sertraline (ZOLOFT) 100 mg tabletIndications: Anxiety and depression Take 1 tablet by mouth once daily. 30 tablet 6 4 Active dextromethorphan-g uaiFENesin (ADT ROBITUSSIN PEAK CLD DM MAX) 10-200 mg/5 mL liquidIndications: Acute URI Take 10 mL by mouth every 4 to 6 (four to six) hours as needed for cough. 240 Bottle 0 6 Active acetaminophen (TYLENOL) 325 mg tabletIndications: Acute URI Take 2 Tabs by mouth every 6 (six) hours as needed for pain or fever. 30 Tab 1 6 Active orphenadrine (NORFLEX ER) 100 mg 12 hr tabletIndications: Low back pain without sciatica, unspecified back pain laterality Take 1 Tab by mouth 2 (two) times daily. Swallow whole. Do not crush or chew. 40 Tab 2 6 Active albuterol sulfate hfa 90 mcg/actuation inhalerIndications :Asthma in adult, mild intermittent, uncomplicated Inhale 2 Puffs into the lungs every 4 (four) hours as needed for shortness of breath or wheezing. 1 Inhaler 6 6 Active Active Problems Problem Noted Date Diagnosed Date Hematuria 02/18/2015 Overview (02/18/2015): [facility] uro Neg cystoscopy 2012 Fu january 2015, recurrent hematuria. Initiated work up again Breast lump in female: left 02/09/2014 Overview (02/09/2014): Biopsy done january 2014 at [facility] Negative per pt Needs mammo in 1 year BETSY (obstructive sleep apnea) 01/21/2014 Anxiety 01/21/2014 Asthma in adult 01/21/2014 Depression 01/21/2014 HTN (hypertension) 01/21/2014 H/O colonoscopy 01/21/2014 Overview (02/09/2014): Normal, 1 polyp removed ASCUS on Pap smear 09/23/2011 Overview (01/21/2014): Not clear if has seen Field Mechanical Meter Tester since then Last pap smear December 2013, results pending (at [facility] pcp) Resolved Problems Problem Noted Date Diagnosed Date Resolved Date Chronic LBP 01/21/2014 02/09/2014 Migraine headache 01/21/2014 02/09/2014 Obesity 01/21/2014 02/09/2014 Social History Tobacco Use Types Packs/Day Years Used Date Smoking Tobacco: Former Smokeless Tobacco: Former Quit: 12/19/2013 Alcohol Use Standard Drinks/Week Comments No 0 (1 standard drink = 0.6 oz pur e alcohol) QUIT 2 YEARS AG Social Connections Answer Date Recorded Social Connections and Isolation 0 05/07/2019 Financial Resource Strain Answer Date R ecorded Financial Resource Strain 0 2018 Stress Answer Date Recorded Stress 0 05/07/2019 Physical Activity Answer Date Recorded Physical Activity 0 05/07/2019 Food Insecurity Answer Date Recorded Food 0 05/07/2019 Transportation Needs Answer Date Record ed Transportation 0 05/07/2019 Housing Stability Answer Date Recorded Housing 0 05/07/2019 Safety and Environment Answer Date Raf rded Safety 0 05/07/2019 Utilities Answer Date Recorded Utilities 0 05/07/2019 Employment Answer Date Recorded Employment 0 05/07/2019 Comments No Sex and Gender Information Value Date Recorded Sex Assigned at Not on file Legal Sex Female 11:24 AM PDT Gender Identity Not on file Sexual Orientation Not on file Last Filed Vital Signs Vital Sign Reading Time Taken Comments Blood Pressure 124/80 12/20/2015 4:01 PM EDT Pulse 78 12/20/2015 4:01 PM EDT Temperature 36.4 ??C (97.6 ??F) 12/20/2015 4:01 PM ED T Respiratory Rate 14 12/20/2015 4:01 PM EDT Oxygen Saturation 95% 01/18/2015 9:39 AM EDT Inhaled Oxygen Concentration - - Weight 83.8 kg (184 lb 11.2 oz) 12/20/2015 4:01 PM EDT Height 160 cm (5' 3 ) 05/22/2014 3:42 PM EDT Body Mass Index 32.72 05/22/2014 3:42 PM EDT Plan of Treatment Not on file Insurance [facility] Member Subscriber Plan / Payer (Ef fective 2013-Present) Name:Smitha Willis Relation to Subscriber:Self Name:Smitha Willis Payer ID:[id number] Type:Indemnity Address: [address] [place] [id number] Care Teams Outpatient Dietitian Relationship Specialty Start Date End Date Leatha Ramirez PA-C [address] [place] [address] PCP - General 11/09/18
[2024-10-18 17:31] VITALS: BP 140/80; TEMP 36.4; BMI 34.0
--- NOTE | 2024-10-18 17:31 | MHC.PC.OV ---
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 Required: No Accompanied by: Self / Same As Patient Allergies No Known Allergies Allergy (Verified 10/18/24 17:43) Medication List - Last Reconciled 10/18/24 by Yajaira Vasquez MD albuterol sulfate 90 mcg/actuation 1 inh inhalation QID PRN bupropion HCl XL (Wellbutrin XL) 150 mg PO QAM cholecalciferol (vitamin D3) 25 mcg PO DAILY estradiol 0.5 mg PO DAILY medroxyprogesterone 2.5 mg PO DAILY mirtazapine (Remeron) 30 mg PO BEDTIME Tobacco use date assessed: 09/15/24 Fall risk assessment: No Falls in past year Last assessed Fall Risk: 10/18/24 Dental Screening Dental Screen Date: 09/15/24 HPI HPI Comments History of Present Illness Details The patient is a 64-year-old female presenting with respiratory distress. She reports persistent coughing that began in August. Initial medical evaluation resulted in antibiotic treatment; however, no improvement was observed. During a subsequent visit, another course of antibiotics was administered, along with prednisone, but the symptoms persisted. The patient complains of increased cough and audible wheezing, and she describes feeling breathless. She denies experiencing fever. Previous viral tests for COVID, influenza, and RSV early in September were negative. The patient's distress heightened, necessitating a return for further evaluation. She uses a rescue inhaler only during symptom episodes and mentions a worsening condition over time. [facility] Medical History Depression Renal cyst, acquired, right Hypertension Lumbar back pain Surgical History No pertinent past surgical history Family History Mother Diabetes Father No problems noted. 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 Mikel Razo, Leigha Alexis, Иван Denson and colleagues, with an educational freddie from [employer]. Review of Systems Const All systems reviewed & are unremarkable except as noted in HPI and below Card Denies chest pain at rest, Denies chest pain with activity, Denies edema, Denies irregular heart rhythm, Denies claudication, Denies dyspnea, Denies dyspnea on exertion, Denies orthopnea, Denies paroxysmal nocturnal dyspnea and Denies slow heart rate Resp Denies cough, Denies dyspnea and Denies dyspnea on exertion Denies urinary incontinence, Denies urinary hesitancy and Denies urinary urgency Musc Denies atrophy, Denies deformity and Denies limited range of motion Skin/Breast Denies bleeding lesions, Denies changing lesions and Denies rash Physical exam (Primary Care) Vital Signs: Last Vital Signs Temp 97.5 F 10/18/24 17:31 BP 140/80 H 10/18/24 17:31 BMI result Body Mass Index 34.0 Tobacco/Smoking Status: Tobacco use Status Tobacco use date assessed 09/15/24 10/18/24 17:41 Patient Tobacco Use Status Former Tobacco user (14 10/18/24 17:41 years ago) Tobacco use type Cigarette 10/18/24 17:41 e-Cigarette/Vaping Use Never Used 10/18/24 17:41 Thrive Assessment: Date of Thrive Assessment Date Thrive assessed 09/15/24 10/18/24 17:41 Resp Effort & Inspection: normal respiratory effort Auscultation: clear to auscultation bilaterally Cardio Jugular venous distension: no JVD Rate: regular rate Rhythm: regular rhythm Heart sounds: S1 normal heart sound present and S2 normal heart sound present Extrem General: Yes full ROM Coding Level of Care Code Est Pt Level 3 (73710) Complex EM visit Add On G2211 Diagnoses URI (upper respiratory infection) J06.9 Time Spent (min) 19 Assessment & Plan Assessment & Plan (1) URI (upper respiratory infection): Code(s): J06.9 - Acute upper respiratory infection, unspecified Category: Medical Plan - Prescribe a daily inhaler for ongoing respiratory symptom management. - Order a chest X-ray to evaluate any underlying respiratory issues. - Prescribe another course of antibiotics tailored to potential bacterial infection. Patient was informed and verbally consented to the use of an ambient scribe for clinic note documentation during this visit. Orders: Orders XR chest 2V Today J06.9 - Acute upper respiratory infection, unspecified Medications: New doxycycline hyclate 100 mg PO BID 10 caps 0RF 5 days benzonatate 100 mg PO BID 10 caps 0RF 5 days umeclidinium-vilanterol 62.5-25 mcg/actuation (Anoro Ellipta) 1 inh inhalation DAILY 60 ea 2RF 60 days
== END 2024-10-18 17:54 | disposition home or self-care (01) ==
PROVIDERS: PCP Internal Medicine; Visit Provider Internal Medicine
DX: J06.9 Acute upper respiratory infection, unspecified (principal)

== ENCOUNTER 2024-11-01 10:32 | Outpatient (AMB) | payer OTHER, SELFPAY ==
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
--- OUTSIDE RECORDS SUMMARY | 2024-11-01 11:30 | XMS_ITS | Clinical Summary ---
Author Organization [facility] Address [address] [place] [address] Care Team Providers Care Surgical Nurse Name Role Phone Leatha Ramirez PA-C Primary Care Provider [phone] Source Comments PLEASE NOTE, if this patient [...] Date Diagnosed Date Hematuria 02/18/2015 Overview (02/18/2015): [facility] uro Neg cystoscopy 2012 Fu january 2015, recurrent hematuria. Initiated work up again Breast lump in female: left 02/09/2014 Overview (02/09/2014): Biopsy done january 2014 at [facility] Negative per pt Needs mammo in 1 year BETSY (obstructive sleep apnea) 01/21/2014 Anxiety 01/21/2014 Asthma in adult 01/21/2014 Depression 01/21/2014 HTN (hypertension) 01/21/2014 H/O colonoscopy 01/21/2014 Overview (02/09/2014): Normal, 1 polyp removed ASCUS on Pap smear 09/23/2011 Overview (01/21/2014): Not clear if has seen Insurance Sales Assistant since then Last pap smear December 2013, results pending (at [facility] pcp) Resolved Problems Problem Noted Date Diagnosed [...] Plan of Treatment Not on file Insurance [facility] ([facility]) Member Subscriber Plan / Payer (Ef fective 2013-Present) Name:Smitha Willis Relation to Subscriber:Self Name:Smitha Willis Payer ID:[id number] Type:Indemnity Address: [address] [place] [id number] Care Teams Surgical Nurse Relationship Specialty Start Date End Date Leatha Ramirez PA-C [address] [place] [address] PCP - General 11/09/18
--- OUTSIDE RECORDS SUMMARY | 2024-11-01 11:30 | XMS_ITS | Patient Health Record ---
Author Organization [facility] Address [address] [place] [address] Care Team Providers Care Database Administration Associate Name Role Phone Eun DILL, [facility] Primary Care Provider Unavailab Benito Reyes Unavailable [phone] Allergies Allergen (clinical drug ingredient) Drug/Non Drug [...] W/U Status Risk Notes Problem Achilles bursitis (931661065) Achilles tendinitis, left leg (M76.62) Active confirmed Problem Peroneal tendinitis (42761752) Peroneal tendinitis, left leg (M76.72) Active confirmed Plan Of Treatment Pending Test Test Name Order Date X ray : Ankle, left 3V 07/03/2022 [id number] TENDON SHEATH/LIGAMENT 1 Insurance Providers Payer Name Payer Address Payer Phone Subscriber Number Group Number Insured Name Patient Relationship to Insured Coverage Start Date Coverage End Date [facility] [address] Nicolemerissa etienne, [place] [id number] Smitha Willis Self - patient is the insured Medical (General) History Medical History History ICD Code Anxiety Arthritis asthma Back,Hip,and Knee pain Depression Chicken pox cyst, kidney Surgical History Surgery Date(Month/Year)
== END 2024-11-01 10:49 | disposition home or self-care (01) ==
LOC: HO.HOP 10:32
PROVIDERS: PCP Internal Medicine; Visit Provider Clinical Nurse Specialist Psychiatric/Mental Health
DX: F32.1 Major depressive disorder, single episode, moderate (principal)
CPT/HCPCS: 99214

== ENCOUNTER → 2024-11-03 09:32 | Outpatient (BNVA) | payer OTHER, SELFPAY | PROVIDERS: PCP Internal Medicine ==

== ENCOUNTER 2024-11-24 10:54 | Outpatient (AMB) | payer OTHER, SELFPAY ==
[2024-11-24 10:58] VITALS: BP 132/80; BMI 33.1
--- NOTE | 2024-11-24 10:58 | MHC.PC.OV ---
Vital Signs 11/24/24 10:58 Height 5 ft 3 in Weight 187 lb BMI 33.1 BP 132/80 Blood Pressure Location Lt brachial Position Sitting Intake Visit Reasons: continued cough Tool Trouble Shooter Required: No Accompanied by: Self / Same As Patient Allergies No Known Allergies Allergy (Verified 11/24/24 11:16) Medication List - Last Reconciled 11/24/24 by Yajaira Vasquez MD albuterol sulfate 90 mcg/actuation 1 inh inhalation QID PRN benzonatate 100 mg PO BID 5 days bupropion HCl XL (Wellbutrin XL) 300 mg PO QAM cholecalciferol (vitamin D3) 25 mcg PO DAILY estradiol 0.5 mg PO DAILY medroxyprogesterone 2.5 mg PO DAILY mirtazapine (Remeron) 30 mg PO BEDTIME umeclidinium-vilanterol 62.5-25 mcg/actuation (Anoro Ellipta) 1 inh inhalation DAILY 60 days Tobacco use date assessed: 09/15/24 Fall risk assessment: No Falls in past year Last assessed Fall Risk: 11/24/24 Dental Screening Dental Screen Date: 11/24/24 Did you have a dental visit in the last 12 months?: Yes Did you have a dental problem in the last 6 months where you did not have access to dental care?: No Was dental information given to patient?: Patient has dentist HPI HPI Comments History of Present Illness Details The patient is a 64 year old female presenting with respiratory symptoms including wheezing. She reports wheezing and shortness of breath, particularly when supine, accompanied by phlegm accumulation in the throat. She has sought medical attention on four previous occasions for this problem. She was previously prescribed prednisone, and a chest X-ray was recommended but not yet completed. Additionally, the patient reports experiencing swelling in the left knee for about four days, associated with numbness, although mobility is preserved despite the sensations of pressure. An imaging test of the knee has been discussed for further investigation. [facility] Medical History (Updated 11/24/24 @ 11:23 by Yajaira Vasquez MD) Depression Renal cyst, acquired, right Hypertension Lumbar back pain Surgical History No pertinent past surgical history Family History Mother Diabetes Father No problems noted. 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 Mikel Razo, Leigha Alexis, Иван Denson and colleagues, with an educational freddie from [employer]. Review of Systems Const All systems reviewed & are unremarkable except as noted in HPI and below Card Denies chest pain at rest, Denies chest pain with activity, Denies edema, Denies irregular heart rhythm, Denies claudication, Reports dyspnea, Reports dyspnea on exertion, Denies orthopnea, Denies paroxysmal nocturnal dyspnea and Denies slow heart rate Resp Reports cough, Reports excessive phlegm production, Reports dyspnea, Reports dyspnea on exertion and Reports wheezing GI Denies abdominal pain, Denies change in bowel habits, Denies excessive flatus, Denies nausea and Denies vomiting Neuro Denies lack of coordination Aller/Immun Reports wheezing Physical exam (Primary Care) Vital Signs: Last Vital Signs BP 132/80 11/24/24 10:58 BMI result Body Mass Index 33.1 BMI Assessment/Plan discussion: High BMI High, discussed plan: lifestyle, weight reduction, dietary and physical activity Tobacco/Smoking Status: Tobacco use Status Tobacco use date assessed 09/15/24 11/24/24 11:04 Patient Tobacco Use Status Former Tobacco user (14 11/24/24 11:04 years ago) Tobacco use type Cigarette 11/24/24 11:04 e-Cigarette/Vaping Use Never Used 11/24/24 11:04 Thrive Assessment: Date of Thrive Assessment Date Thrive assessed 09/15/24 11/24/24 11:04 Resp Effort & Inspection: audible wheezes and Actively coughing Auscultation: wheezes expiratory wheezes Cardio Jugular venous distension: no JVD Rate: regular rate Rhythm: regular rhythm Heart sounds: S1 normal heart sound present and S2 normal heart sound present Extrem General: Yes full ROM Coding Level of Care Code Est Pt Level 4 (04010) Complex EM visit Add On G2211 Diagnoses Mild persistent asthma without complication J45.30 Asthma severity: mild Asthma persistence: persistent Asthma complication type: uncomplicated Left knee pain M25.562 Major depressive disorder, single episode, moderate F32.1 Anxiety F41.9 Time Spent (min) 21 Assessment & Plan Assessment & Plan (1) Asthma: Code(s): J45.909 - Unspecified asthma, uncomplicated Category: Medical Qualifiers: Asthma severity: mild Asthma persistence: persistent Asthma complication type: uncomplicated Qualified Code(s): J45.30 - Mild persistent asthma, uncomplicated (2) Left knee pain: Code(s): M25.562 - Pain in left knee Category: Medical (3) Major depressive disorder, single episode, moderate: Code(s): F32.1 - Major depressive disorder, single episode, moderate Category: Medical (4) Anxiety: Code(s): F41.9 - Anxiety disorder, unspecified Category: Medical Plan The patient will be referred to a floor finisher helper for further evaluation of her recurring respiratory symptoms, including wheezing and dyspnea. Prednisone treatment will continue for acute exacerbations. The patient should complete the pending chest X-ray to investigate any pulmonary pathology. The left knee swelling and numbness warrant a radiologic assessment. The bupropion regimen for depression will continue, along with hormone therapy with estradiol and medroxyprogesterone. Mirtazapine remains in use for insomnia. The patient was offered advice on missing work and logistical arrangements pertaining to her healthcare appointments were discussed. Patient was informed and verbally consented to the use of an ambient scribe for clinic note documentation during this visit. I have advised the patient on the importance of completing her chest X-ray for a thorough evaluation of her respiratory symptoms. We discussed the ongoing prescription of prednisone to manage respiratory inflammation, given her recurring symptoms and prior positive outcomes. I provided a referral to a floor finisher helper to further investigate the possibility of underlying conditions. Regarding the knee issue, I explained the reason for ordering an X-ray of the left knee given her symptoms of swelling and numbness, highlighting how this could aid in diagnosing structural or pathology concerns. Patient instructions emphasized attendance to scheduled appointments, the rationale behind each recommended intervention, and her current therapeutic regimen for depression and insomnia. The necessity to complete these investigations and adhere to therapy was underscored. The patient consented to the planned management and acknowledged her understanding of the next steps. Orders: Orders XR knee LT 2V Today M25.562 - Pain in left knee Referrals Pulmonology Referral J45.30 - Mild persistent asthma, uncomplicated Medications: New prednisone Take 4 tabs for 2 days, then 3 tabs for 2 days, then 2 tabs for 2 days, then 1 tab for 2 days 10 mg PO DIRECTED 20 tabs 0RF 8 days Patient Instructions: - Complete the chest X-ray as soon as possible. - Continue taking prednisone as prescribed. - Attend referral appointments with the floor finisher helper. - Proceed with the X-ray for the left knee. - Continue current medication regimen for depression and insomnia. - Ensure understanding of work absence documentation if required. - Contact healthcare providers if symptoms worsen or new symptoms arise.
--- OUTSIDE RECORDS SUMMARY | 2024-11-24 13:57 | XMS_ITS | Clinical Summary ---
Author Organization [facility] Address [address] [place] [address] Care Team Providers Care Car Restorer Name Role Phone Tequila Haq MD Primary Care Provider [phone] Allergies Active Allergy Reactions Criticality Noted Date Comments Seasonal 11/22/2020 Medications Medication Sig Dispensed Refills Start Date End Date Status estradiol (ESTRACE) 0.5 MG tablet Take 0.5 mg by mouth daily. 11 05/26/2019 Active ibuprofen (ADVIL,MOTRIN) 800 MG tablet Take 800 mg by mouth. 0 01/20/2019 Active medroxyPROGESTERone (PROVERA) 2.5 MG tablet Take 2.5 mg by mouth daily. 11 04/01/2019 Active acetaminophen (TYLENOL) 325 MG tablet Take 650 mg by mouth. 0 Active fluticasone (FLOVENT HFA) 110 MCG/ACT inhaler Inhale 110 mcg into the lungs. 0 08/28/2020 Active Cholecalciferol 50 MCG (2000 UT) CAPS Take 1 capsule by mouth daily. 0 08/19/2018 Active Active Problems Problem Noted Date Diagnosed Date Spots in front of the eye 11/30/2019 Degenerative cervical disc 04/21/2019 Diverticulosis 07/14/2017 Renal mass 02/19/2017 Hematuria 02/18/2015 Overview: Overview: [facility] uro Neg cystoscopy 2012January 2015, recurrent hematuria. Initiated work up again Breast lump in female 02/09/2014 Overview: Overview: Biopsy done january [address] [facility] Negative per pt Needs mammo in 1 year Anxiety 01/21/2014 Asthma 01/21/2014 Depression 01/21/2014 H/O colonoscopy 01/21/2014 Overview: Overview: Normal, 1 polyp removed HTN (hypertension) 01/21/2014 BETSY (obstructive sleep apnea) 01/21/2014 ASCUS on Pap smear 09/23/2011 Overview: Overview: Not clear if has seen Beater Out since then Last pap smear December 2013, results pending (at [facility] pcp) Social History Tobacco Use Types Packs/Day Years Used Date Smoking Tobacco: Former Cigarettes Q uit: 2013 Smokeless Tobacco: Never Alcohol Use Standard Drinks/Week Comments No 0 (1 standard drink = 0.6 oz pur e alcohol) Sex and Gender Information Value Date Recorded Sex Assigned at Not on file Gender Identity Not on file Sexual Orientation Not on file Job Start Date Occupation Industry Not on file Not on file Not on file Last Filed Vital Signs Vital Sign Reading Time Taken Comments Blood Pressure - - Pulse - - Temperature - - Respiratory Rate - - Oxygen Saturation - - Inhaled Oxygen Concentration - - Weight 75.3 kg (166 lb) 02/13/2020 2:46 PM EDT Height 160 cm (5' 3 ) 02/13/2020 2:46 PM EDT Body Mass Index 29.41 02/13/2020 2:46 PM EDT Plan of Treatment Health Maintenance Due Date Last Done Comments Hepatitis C Screening 1960 Depression Screening 1972 BMI Counseling 1978 Preventative Health Evaluation 1978 DTap / Tdap / Td (1 - Tdap) 1979 Cervical Cancer Screening (Pap Smear) 1981 Colon Cancer Screening (Colonoscopy) 2005 Breast Cancer Screening (Mammogram) 2010 Shingrix-Zoster Vaccine (1 o f 2) 2010 Pneumococcal Vaccine (2 of 2 - PPSV23 or PCV20) 09/08/2017 07/14/2017 Pneumococcal Vaccine (2 of 2 - PPSV23 or PCV20) 09/08/2017 07/14/2017 COVID-19 Vaccine (3 - 2023-2 5 season) 2024 10/12/2020, 09/21/2020 Influenza Vaccine (#1) 2024 05/25/2019 RSV Adult > 60+ Yrs or (1 - 1-dose 75+ series) 2035 Hepatitis B Vaccines Aged Out No long er eligible based on patient's age to complete this topic RSV Ped < 20 months Aged Out No longe r eligible based on patient's age to complete this topic Care Teams Car Restorer Relationship Specialty Start Date End Date Tequila Haq MD [address] [facility] [address] [place] [address] PCP - General Internal Medicine 05/27/19
--- OUTSIDE RECORDS SUMMARY | 2024-11-24 13:57 | XMS_ITS | Patient Health Record ---
Author Organization [facility] Address [address] [place] [address] Care Team Providers Care Commercial Census Taker Name Role Phone Eun DILL, [facility] Primary Care Provider Unavailab Benito Reyes Unavailable [phone] Allergies Allergen (clinical drug ingredient) Drug/Non Drug [...] W/U Status Risk Notes Problem Achilles bursitis (173734418) Achilles tendinitis, left leg (M76.62) Active confirmed Problem Peroneal tendinitis (12877670) Peroneal tendinitis, left leg (M76.72) Active confirmed Plan Of Treatment Pending Test Test Name Order Date X ray : Ankle, left 3V 07/03/2022 [id number] TENDON SHEATH/LIGAMENT 1 Insurance Providers Payer Name Payer Address Payer Phone Subscriber Number Group Number Insured Name Patient Relationship to Insured Coverage Start Date Coverage End Date [facility] [address] Nicolemerissa etienne, [place] [id number] Smitha Willis Self - patient is the insured Medical (General) History Medical History History ICD Code Anxiety Arthritis asthma Back,Hip,and Knee pain Depression Chicken pox cyst, kidney Surgical History Surgery Date(Month/Year)
== END 2024-11-24 11:22 | disposition home or self-care (01) ==
LOC: HO.HMCH 10:54
PROVIDERS: PCP Internal Medicine; Visit Provider Internal Medicine
DX: J45.30 Mild persistent asthma, uncomplicated (principal); M25.562 Pain in left knee; F32.1 Major depressive disorder, single episode, moderate; F41.9 Anxiety disorder, unspecified

== ENCOUNTER 2024-11-24 10:54 | Outpatient (REF) | payer OTHER, SELFPAY ==
--- NOTE | ~2024-11-24 | XR_ITS ---
CLINICAL HISTORY: J06.9 - Acute upper respiratory infection, unspecified 2 views chest Comparison: None Findings: Cardiac and mediastinal contours are normal. Mild interstitial prominence with scattered peribronchial thickening. No focal consolidation. No effusion. No pneumothorax. No acute osseous finding. Impression: Mild interstitial prominence with scattered peribronchial thickening. No focal consolidation. This document has been electronically signed by: Parish Balderas MD on 11/25/2024 12:17:11
--- NOTE | ~2024-11-24 | XR_ITS ---
CLINICAL HISTORY: M25.562 - Pain in left knee 2 view left knee Comparison: None Findings: No fractures or dislocations. No significant arthritic change or erosions. No joint effusion. No radiopaque foreign body. IMPRESSION: 1. No acute findings. This document has been electronically signed by: Parish Balderas MD on 11/25/2024 12:19:18
--- OUTSIDE RECORDS SUMMARY | 2024-11-24 14:58 | XMS_ITS | Clinical Summary ---
Author Organization [facility] Address [address] [place] [address] Care Team Providers Care Costumed Character Entertainer Name Role Phone Tequila Haq MD Primary Care Provider [phone] Allergies Active Allergy Reactions Criticality Noted Date [...] Renal mass 02/19/2017 Hematuria 02/18/2015 Overview: Overview: [facility] uro Neg cystoscopy 2012January 2015, recurrent hematuria. Initiated work up again Breast lump in female 02/09/2014 Overview: Overview: Biopsy done january 2014 at [facility] Negative per pt Needs mammo in 1 year Anxiety 01/21/2014 Asthma 01/21/2014 Depression 01/21/2014 H/O colonoscopy 01/21/2014 Overview: Overview: Normal, 1 polyp removed HTN (hypertension) 01/21/2014 BETSY (obstructive sleep apnea) 01/21/2014 ASCUS on Pap smear 09/23/2011 Overview: Overview: Not clear if has seen Theology Professor since then Last pap smear December 2013, results pending (at [facility] pcp) Social History Tobacco Use Types Packs/Day [...] age to complete this topic Care Teams Costumed Character Entertainer Relationship Specialty Start Date End Date Tequila Haq MD [address] [facility] [address] [place] [address] PCP - General Internal Medicine 05/27/19
--- OUTSIDE RECORDS SUMMARY | 2024-11-24 14:58 | XMS_ITS | Clinical Summary ---
Author Organization [facility] Address [address] [place] [address] Care Team Providers Care Merchant Miller Name Role Phone Leatha Ramirez PA-C Primary Care Provider [phone] Source Comments PLEASE NOTE, if this patient [...] Date Diagnosed Date Hematuria 02/18/2015 Overview (02/18/2015): [facility] uro Neg cystoscopy 2012 Fu january 2015, recurrent hematuria. Initiated work up again Breast lump in female: left 02/09/2014 Overview (02/09/2014): Biopsy done january 2014 at [facility] Negative per pt Needs mammo in 1 year BETSY (obstructive sleep apnea) 01/21/2014 Anxiety 01/21/2014 Asthma in adult 01/21/2014 Depression 01/21/2014 HTN (hypertension) 01/21/2014 H/O colonoscopy 01/21/2014 Overview (02/09/2014): Normal, 1 polyp removed ASCUS on Pap smear 09/23/2011 Overview (01/21/2014): Not clear if has seen Head Waiter/Waitress Banquet since then Last pap smear December 2013, results pending (at [facility] pcp) Resolved Problems Problem Noted Date [...] Plan of Treatment Not on file Insurance [facility] ([facility]) Member Subscriber Plan / Payer (Ef fective 2013-Present) Name:Smitha Willis Relation to Subscriber:Self Name:Smitha Willis Payer ID:[id number] Type:Indemnity Address: [address] [place] [id number] Care Teams Merchant Miller Relationship Specialty Start Date End Date Leatha Ramirez PA-C [address] [place] [address] PCP - General 11/09/18
== END 2024-11-24 10:55 | disposition home or self-care (01) ==
LOC: HO.XRAY 10:54
PROVIDERS: PCP Internal Medicine; Visit Provider Internal Medicine
DX: J45.30 Mild persistent asthma, uncomplicated (principal); M25.562 Pain in left knee; F32.1 Major depressive disorder, single episode, moderate; F41.9 Anxiety disorder, unspecified; J06.9 Acute upper respiratory infection, unspecified
CPT/HCPCS: 71046; 73560

== ENCOUNTER → 2024-11-24 11:35 | Outpatient (BNV) | payer OTHER, SELFPAY | PROVIDERS: PCP Internal Medicine; Visit Provider Radiology Vascular & Interventional Radiology | DX: J06.9 Acute upper respiratory infection, unspecified (principal); M25.562 Pain in left knee | CPT/HCPCS: 71046; 73560 ==

== ENCOUNTER 2024-12-28 14:39 | Outpatient (AMB) | payer OTHER, SELFPAY ==
--- NOTE | 2024-12-28 14:51 | A.OFFPC_ITS ---
Vital Signs 12/28/24 14:53 Height 5 ft 3 in Weight 194 lb BMI 34.4 BP 140/90 H Blood Pressure Location Lt brachial Position Sitting Intake Visit Reasons: numb LT knee/both legs swollen Intake Note: Patient here c/o left knee pain and swollen legs going on 2 weeks Greenkeeper Required: No Accompanied by: Self / Same As Patient Allergies No Known Allergies Allergy (Verified 12/28/24 15:05) Medication List - Last Reconciled 12/28/24 by Yajaira Vasquez MD albuterol sulfate 90 mcg/actuation 1 inh inhalation QID PRN bupropion HCl XL (Wellbutrin XL) 300 mg PO QAM cholecalciferol (vitamin D3) 25 mcg PO DAILY estradiol 0.5 mg PO DAILY medroxyprogesterone 2.5 mg PO DAILY mirtazapine (Remeron) 30 mg PO BEDTIME umeclidinium-vilanterol 62.5-25 mcg/actuation (Anoro Ellipta) 1 inh inhalation DAILY 60 days Tobacco use date assessed: 09/15/24 Fall risk assessment: No Falls in past year Last assessed Fall Risk: 12/28/24 Dental Screening Dental Screen Date: 11/24/24 HPI HPI Comments History of Present Illness Details The patient is a 64-year-old female presenting with left knee pain initially noticed two weeks prior. She describes the pain as a heavy sensation primarily located on the sides of the knee, with associated difficulty bending the joint. She does not report a history of trauma or falls but did mention a near-fall event where she heard a distinct sound from the knee. The pain is severe enough to necessitate leaving work early and is impacting her daily activities. There are no imaging findings of fluid retention or swelling, although the patient initially suspected fluid presence. Additionally, she seeks a referral for chronic sinusitis, which has required ongoing management. She also has asthma stable with Anoro and moderate major depression well controlled with bupropion. [facility] Medical History (Updated 12/28/24 @ 15:13 by Yajaira Vasquez MD) Depression Renal cyst, acquired, right Hypertension Lumbar back pain Surgical History No pertinent past surgical history Family History Mother Diabetes Father No problems noted. 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 Mikel Razo, Leigha Alexis, Иван Denson and colleagues, with an educational freddie from [employer]. Review of Systems Const All systems reviewed & are unremarkable except as noted in HPI and below Card Denies chest pain at rest, Denies chest pain with activity, Denies edema, Denies irregular heart rhythm, Denies claudication, Denies dyspnea, Denies dyspnea on exertion, Denies orthopnea, Denies paroxysmal nocturnal dyspnea and Denies slow heart rate Resp Denies cough, Denies dyspnea and Denies dyspnea on exertion GI Denies abdominal pain, Denies change in bowel habits, Denies excessive flatus, Denies nausea and Denies vomiting Physical exam (Primary Care) Vital Signs: Last Vital Signs BP 140/90 H 12/28/24 14:53 BMI result Body Mass Index 34.4 BMI Assessment/Plan discussion: High BMI High, discussed plan: lifestyle, weight reduction, dietary and physical activity Tobacco/Smoking Status: Tobacco use Status Tobacco use date assessed 09/15/24 12/28/24 14:52 Patient Tobacco Use Status Former Tobacco user (12/28/24 14:52 years ago) Tobacco use type Cigarette 12/28/24 14:52 e-Cigarette/Vaping Use Never Used 12/28/24 14:52 Thrive Assessment: Date of Thrive Assessment Date Thrive assessed 09/15/24 12/28/24 14:52 Resp Effort & Inspection: normal respiratory effort Auscultation: clear to auscultation bilaterally Cardio Jugular venous distension: no JVD Rate: regular rate Rhythm: regular rhythm Heart sounds: S1 normal heart sound present and S2 normal heart sound present Extrem General: Yes full ROM Coding Level of Care Code Est Pt Level 4 (09484) Diagnoses Chronic sinusitis J32.9 Major depressive disorder, single episode, moderate F32.1 Mild persistent asthma without complication J45.30 Asthma severity: mild Asthma persistence: persistent Asthma complication type: uncomplicated Time Spent (min) 20 Assessment & Plan Assessment & Plan (1) Chronic sinusitis: Code(s): J32.9 - Chronic sinusitis, unspecified Category: Medical (2) Major depressive disorder, single episode, moderate: Code(s): F32.1 - Major depressive disorder, single episode, moderate Category: Medical (3) Asthma: Code(s): J45.909 - Unspecified asthma, uncomplicated Category: Medical Qualifiers: Asthma severity: mild Asthma persistence: persistent Asthma complication type: uncomplicated Qualified Code(s): J45.30 - Mild persistent asthma, uncomplicated Plan For the left knee pain, I initiated a referral to orthopedics for further investigation given the ineffectiveness of initial imaging in identifying significant issues. An anti-inflammatory cream was prescribed to help manage pain and inflammation locally. I highlighted the importance of applying it as instructed to maximize benefit. Additionally, for chronic sinusitis, I arranged for a referral to an ear, nose, and throat specialist to further explore manag ement options, considering the long-standing nature of her condition. The prompt arrangement of referrals was emphasized to address her concerns efficiently. Patient was informed and verbally consented to the use of an ambient scribe for clinic note documentation during this visit. I discussed with the patient the current management plan for her left knee pain and advised on the application of an anti-inflammatory cream to reduce symptoms. I explained the potential benefit of seeing an home office claim specialist for a more thorough evaluation and possible further imaging or therapy, ensuring she understood the referral process. For her chronic sinusitis, I elaborated on the referral to an ear, nose, and throat specialist, emphasizing the need to manage potential infections to alleviate symptoms, with a focus on the chronic aspects of her condition. I ensured that she would be seen in a timely manner by specialists and reiterated her ability to contact us for any sudden changes or exacerbations in symptoms. Orders: Referrals Orthopedics Referral M25.562 - Pain in left knee Ear/Nose/Throat Referral J32.9 - Chronic sinusitis, unspecified Patient Instructions: - Apply the prescribed anti-inflammatory cream to the left knee, allowing it to dry for 5-10 minutes. - Attend scheduled appointments with the orthopedic and ENT specialists as arranged. - Monitor symptoms; if knee pain worsens or changes, seek further medical advice. - Contact the office if new symptoms develop or current symptoms significantly worsen.
[2024-12-28 14:53] VITALS: BP 140/90; BMI 34.4
--- OUTSIDE RECORDS SUMMARY | 2024-12-28 17:24 | XMS_ITS | Clinical Summary ---
Author Organization [facility] Address [address] [place] [address] Care Team Providers Care Messenger Office Name Role Phone Leatha Ramirez PA-C Primary Care Provider [phone] Source Comments PLEASE NOTE, if this patient [...] inhalerIndications :Asthma in adult, mild intermittent, uncomplicated (HHS-HCC) Inhale 2 Puffs into the lungs every 4 (four) hours as needed for shortness of breath or wheezing. 1 Inhaler 6 6 Active Active Problems Problem Noted Date Diagnosed Date Hematuria 02/18/2015 Overview (02/18/2015): [facility] uro Neg cystoscopy 2012 Fu january 2015, recurrent hematuria. Initiated work up again Breast lump in female: left 02/09/2014 Overview (02/09/2014): Biopsy done january 2014 [place] [facility] [place] per pt Needs mammo in 1 year BETSY (obstructive sleep apnea) 01/21/2014 Anxiety 01/21/2014 Asthma in adult ([facility]) 01/21/2014 Depression 01/21/2014 HTN (hypertension) 01/21/2014 H/O colonoscopy 01/21/2014 Overview (02/09/2014): Normal, 1 polyp removed ASCUS on Pap smear 09/23/2011 Overview (01/21/2014): Not clear if has seen Production Hardener since then Last pap smear December 2013, results pending (at [facility] pcp) Resolved Problems Problem Noted Date Diagnosed [...] Plan of Treatment Not on file Insurance HNE ([employer] [place]) Member Subscriber Plan / Payer (Ef fective 2013-Present) Name:Lazaro Smitha Relation to Subscriber:Self Name:Lazaro Smitha Payer ID:[id number] Type:Indemnity Address: [address] [place] [id number] Care Teams Messenger Office Relationship Specialty Start Date End Date Leatha Ramirez PA-C [address] [place] [address] PCP - General 11/09/18
--- OUTSIDE RECORDS SUMMARY | 2024-12-28 17:24 | XMS_ITS | Patient Health Record ---
Author Organization [facility] Address [address] [place] [address] Care Team Providers Care Drop Wire Builder Name Role Phone Eun DILL, [facility] Primary Care Provider Unavailab Benito Reyes Unavailable [phone] Allergies Allergen (clinical drug ingredient) Drug/Non Drug [...] W/U Status Risk Notes Problem Achilles bursitis (907262717) Achilles tendinitis, left leg (M76.62) Active confirmed Problem Peroneal tendinitis (34503420) Peroneal tendinitis, left leg (M76.72) Active confirmed Plan Of Treatment Pending Test Test Name Order Date X ray : Ankle, left 3V 07/03/2022 [id number] TENDON SHEATH/LIGAMENT 1 Insurance Providers Payer Name Payer Address Payer Phone Subscriber Number Group Number Insured Name Patient Relationship to Insured Coverage Start Date Coverage End Date [facility] [address] Nicolemerissa etienne, [place] [address] [phone] [id number] Smitha Willis Self - patient is the insured Medical (General) History Medical History History ICD Code Anxiety Arthritis asthma Back,Hip,and Knee pain Depression Chicken pox cyst, kidney Surgical History Surgery Date(Month/Year)
--- OUTSIDE RECORDS SUMMARY | 2024-12-28 17:24 | XMS_ITS | Clinical Summary ---
Author Organization [facility] Address [address] [place] [address] Care Team Providers Care Police Communications Operator Name Role Phone Tequila Haq MD Primary Care Provider [phone] Allergies Active Allergy Reactions Criticality Noted Date [...] Renal mass 02/19/2017 Hematuria 02/18/2015 Overview: Overview: [facility] uro Neg cystoscopy 2012January 2015, recurrent hematuria. Initiated work up again Breast lump in female 02/09/2014 Overview: Overview: [place] [facility] [place] Needs mammo in 1 year Anxiety 01/21/2014 Asthma 01/21/2014 Depression 01/21/2014 H/O colonoscopy 01/21/2014 Overview: Overview: Normal, 1 polyp removed HTN (hypertension) 01/21/2014 BETSY (obstructive sleep apnea) 01/21/2014 ASCUS on Pap smear 09/23/2011 Overview: Overview: Not clear if has seen Correctional Officer since then Last pap smear December 2013, results pending [place] [facility] [place] Social History Tobacco Use Types Packs/Day [...] age to complete this topic Care Teams Police Communications Operator Relationship Specialty Start Date End Date Tequila Haq MD [address] [facility] [address] [place] [address] PCP - General Internal Medicine 05/27/19
== END 2024-12-28 15:14 | disposition home or self-care (01) ==
LOC: HO.HMCH 14:40
PROVIDERS: PCP Internal Medicine; Visit Provider Internal Medicine
DX: J32.9 Chronic sinusitis, unspecified (principal); F32.1 Major depressive disorder, single episode, moderate; J45.30 Mild persistent asthma, uncomplicated

== ENCOUNTER → 2024-12-28 14:39 | Outpatient (BNVA) | payer OTHER, SELFPAY | PROVIDERS: PCP Internal Medicine; Visit Provider Internal Medicine | DX: Z13.89 Encounter for screening for other disorder (principal) ==

== ENCOUNTER 2025-01-16 15:33 | Outpatient (AMB) | payer OTHER, SELFPAY ==
[2025-01-16 15:37] VITALS: BP 120/76; PULSE 82; O2SAT 95; BMI 34.9
--- NOTE | 2025-01-16 15:37 | A.OFFVIS_ITS ---
Vital Signs 01/16/25 15:37 Height 5 ft 3 in Weight 197 lb 5.019 oz BMI 34.9 BP 120/76 Blood Pressure Location Rt brachial Position Sitting Pulse 82 Pulse Source Pulse Oximeter Pulse Oximetry (%) 95 Oxygen Delivery Method Room Air Intake Visit Reasons: Wheezing Allergies No Known Allergies Allergy (Verified 01/16/25 16:37) Medication List - Last Reconciled 01/16/25 by Zenaida De Santiago MD albuterol sulfate 90 mcg/actuation 1 inh inhalation QID PRN bupropion HCl XL (Wellbutrin XL) 300 mg PO QAM cholecalciferol (vitamin D3) 25 mcg PO DAILY diclofenac sodium 1% (Arthritis Pain (diclofenac)) 2 grams topical QID 30 days estradiol 0.5 mg PO DAILY medroxyprogesterone 2.5 mg PO DAILY mirtazapine (Remeron) 30 mg PO BEDTIME montelukast 10 mg PO DAILY umeclidinium-vilanterol 62.5-25 mcg/actuation (Anoro Ellipta) 1 inh inhalation DAILY 60 days Do you need a note to return to daycare/school/sports/work: No HPI HPI Wheezing: Details: THIS 64 YEARS OLD FEMALE, IS BEING SEEN FOR THE 1ST TIME FOR PULMONARY EVALUATION AND MANAGEMENT. SHE IS BEING TREATED FOR BRONCHIAL ASTHMA FOR THE PAST MANY YEARS, CURRENT TREATMENT INCLUDES ANORO ELLIPTA ONCE A DAY AND ALBUTEROL 2 PUFFS Q 6 HOURS P.R.N.. SHE CLAIMS THAT DURING THE PAST FEW MONTHS SHE WAS TREATED TWICE FOR RESPIRATORY INFECTION. SHE CONTRACTED COVID, FROM HER SON'S HOME SHE GOES TO VISIT FREQUENTLY. 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 BUT SHE DOES GET SHORT OF BREATH AND INTERMITTENT COUGH, DURING THE WORK WELL AT HOME. SHE HAS HISTORY OF SMOKING IN THE PAST 1 PACK A DAY FOR MORE THAN 20 YEARS AND BUT LUCKILY QUIT 12 YEARS AGO. SHE HAS CHRONIC ANXIETY/DEPRESSION. AND ALSO CHRONIC SLEEP PROBLEMS. SHE WAKES UP WITH GASPING LIKE FEELING A FEW TIMES DURING THE NIGHT. SHE HAD A SLEEP STUDY PERFORMED AT [facility] ABOUT 12 YEARS AGO AND HAD SOME DEGREE OF SLEEP APNEA. BUT SHE WAS NOT PRESCRIBED CPAP THERAPY. SHE HAS CHRONIC INSOMNIA SHE HAS BEEN SEEING A PSYCHIATRIST AT [facility]. SHE WAS PRESCRIBED REMERON 15 MG TO TAKE 1 TABLET DAILY AT NIGHT, WITH THAT SHE HAS BEEN SLEEPING SOMEWHAT BETTER. SHE TRIES TO SLEEP IN LATERAL POSITION. BUT SHE STILL HAS SOME EPISODES THAT SHE WAKES UP WITH GASPING FEELING AT NIGHT. SHE REMAINS TIRED DURING THE DAYTIME, BUT SHE TRIES TO STAY ACTIVE .IN PHYSICAL ACTIVITIES SHE ALSO HAS HISTORY OF INTERMITTENT NASAL CONGESTION CONSIDERED TO BE DUE TO ALLERGIC RHINITIS, AND SHE HAS BEEN PRESCRIBED MONTELUKAST 10 MG ONCE A DAY. SHE IS NOT USING ANY NASAL INHALERS. SHE REMAINS MODERATELY [facility] Medical History (Updated 01/16/25 @ 17:00 by Zenaida De Santiago MD) Insomnia Asthma with COPD Depression Renal cyst, acquired, right Hypertension Lumbar back pain Surgical History No pertinent past surgical history Family History Mother Diabetes Father No problems noted. 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 Current occupational exposures/hazards: No Cognitive needs: No Hearing needs: No Vision needs: Yes (glasses) Review of Systems Const All systems reviewed & are unremarkable except as noted in HPI and below Eyes Reports no additional complaints ENT Reports nasal congestion (MILD INTERMITTENT) Card Denies chest pain, Denies irregular heart rhythm and Denies leg edema Resp Reports as per HPI GI Reports no additional complaints Reports no additional complaints Musc Reports no additional complaints Skin/Breast Reports system reviewed and no additional complaints, except as documented Neuro Reports no additional complaints Psych Reports depression and Reports other (CHRONIC INSOMNIA, AND FREQUENT AWAKENINGS AT NIGHT) Endo Reports no additional complaints Renato/Lymph Reports no additional complaints Physical Exam Vital Signs: Last Vital Signs Pulse 82 01/16/25 15:37 BP 120/76 01/16/25 15:37 Pulse Ox 95 01/16/25 15:37 Oxygen Delivery Method Room Air 01/16/25 15:37 BMI result Body Mass Index 34.9 Const General: healthy appearing, comfortable, no acute distress, alert and awake Orientation/consciousness: patient oriented x3 HEENT Head: Yes normal to inspection General nose exam: No nasal polyps present and No nasal discharge present Face and sinus: Yes sinuses nontender Mouth: oropharynx normal Throat: Yes posterior oropharynx normal Eyes General: appearance normal, both eyes and all related structures Neck Neck: Yes normal visual inspection, Yes no lymphadenopathy, Yes trachea midline, Yes no JVD and Yes other (NECK SIZE 15-1/2 INCH) Thyroid: Thyroid normal Chest Chest palpation & inspection: normal inspection of the chest, normal palpation of entire chest wall and no tenderness Resp Other: PERCUSSION NOTE IS RESONANT, BREATH SOUNDS ARE SLIGHTLY DISTANT WITH PROLONGED EXPIRATORY PHASE. NO WHEEZES OR RHONCHI ARE HEARD Cardio Palpation: normal PMI Rate: regular rate Rhythm: regular rhythm Heart sounds: no gallops and no murmurs Peripheral pulses: Peripheral pulses 2+ throughout GI Palpation (GI): Soft to palpation, nontender, No hepatosplenomegaly present and no masses Auscultation: normal bowel sounds Back/Spine/Pelvis Thoracic/Lumbar Spine: thoracic and lumbar spine normal to inspection Skin General skin exam: no rashes or lesions noted Neuro General: patient oriented x3 and no focal motor deficits Cranial nerves: Yes CN's II-XII intact bilaterally Extrem General: Yes normal to inspection, Yes no clubbing, cyanosis or edema and Yes no calf tenderness Psych Appearance: grossly normal and well kempt Speech and movement: Normal speech and movement present Assessment & Plan Assessment & Plan (1) Asthma with COPD: Comment: PATIENT HAS HISTORY OF INTERMITTENT COUGH AND SOME WHEEZING. PAST HISTORY OF SMOKING. CLINICALLY I THINK SHE HAS ASTHMA/COPD SYNDROME. Code(s): J44.89 - Other specified chronic obstructive pulmonary disease Category: Medical Plan: PLAN IS TO DO COMPLETE PULMONARY FUNCTION TEST. IN THE MEANTIME SHE CAN CONTINUE TO USE ANORO ELLIPTA ONCE A DAY AND ALBUTEROL 2 PUFFS Q 6 HOURS P.R.N. TREATMENT PLAN WILL BE MODIFIED AFTER THE PULMONARY FUNCTION TESTS. (2) Insomnia: Comment: DESCRIBES THAT SHE HAS DIFFICULTY IN SLEEPING AT NIGHT. SHE DOES DESCRIBE WAKING UP WITH AIR HUNGER/GASPING LIKE FEELING. SYMPTOMS ARE SUGGESTIVE OF POSSIBLE OBSTRUCTIVE SLEEP APNEA. SHE ALSO DOES HAVE CHRONIC INSOMNIA WHICH MAY BE RELATED TO HER CHRONIC ANXIETY/DEPRESSION. Code(s): G47.00 - Insomnia, unspecified Category: Medical Qualifiers: Insomnia type: primary Qualified Code(s): F51.01 - Primary insomnia Plan: SHE WOULD NEED A HOME-BASED SLEEP STUDY TO EVALUATE FOR SLEEP APNEA. IN THE MEANTIME OK TO USE REMERON 15 MG AT BEDTIME. EXPLAINED THAT IF SHE DOES HAVE SLEEP APNEA SHE MAY NEED TO USE CPAP AT NIGHT AND SHE IS AGREEABLE. (3) Anxiety: Comment: I THINK SHE HAS A PAST HISTORY OF ACUTE DEPRESSIVE EPISODE AT LEAST AT 1 TIME. FOLLOWING THAT CONTINUES TO HAVE ANXIETY AND INSOMNIA. HAS BEEN SEEING A PSYCHIATRIST AT [facility]. Code(s): F41.9 - Anxiety disorder, unspecified Category: Medical Plan: ADVISED TO CONTINUE PRESENT MEDICATION WHICH INCLUDE WELLBUTRIN XL 300 MG A.M. AND REMERON 15 MG AT BEDTIME (4) Allergic rhinitis: Comment: PATIENT ALSO HAS HISTORY OF INTERMITTENT TO FREQUENT NASAL CONGESTION. THIS SEEMS TO BE DUE TO ALLERGIC RHINITIS. Code(s): J30.9 - Allergic rhinitis, unspecified Category: Medical Plan: OK TO CONTINUE MONTELUKAST 10 MG DAILY Orders: Orders PFT pulmonary function test Today J30.9 - Allergic rhinitis, unspecified, J44.89 - Other specified chronic obstructive pulmonary disease RT home sleep study Today F51.01 - Primary insomnia Coding Level of Care Code New Pt Level 4 (00526) Diagnoses Asthma with COPD J44.89 Primary insomnia F51.01 Insomnia type: primary Anxiety F41.9 Allergic rhinitis J30.9
--- OUTSIDE RECORDS SUMMARY | 2025-01-16 17:07 | XMS_ITS | Patient Health Record ---
Author Organization [facility] Address [address] [place] [address] Care Team Providers Care Training Coordinator Name Role Phone Eun DILL, [facility] Primary Care Provider Unavailab Benito Reyes Unavailable [phone] Allergies Allergen (clinical drug ingredient) Drug/Non Drug [...] W/U Status Risk Notes Problem Achilles bursitis (069063385) Achilles tendinitis, left leg (M76.62) Active confirmed Problem Peroneal tendinitis (67538290) Peroneal tendinitis, left leg (M76.72) Active confirmed Plan Of Treatment Pending Test Test Name Order Date X ray : Ankle, left 3V 07/03/2022 [id number] TENDON SHEATH/LIGAMENT 1 Insurance Providers Payer Name Payer Address Payer Phone Subscriber Number Group Number Insured Name Patient Relationship to Insured Coverage Start Date Coverage End Date [facility] [address] [place]mer[place] etienne, [place] [phone] [id number] Smitha Willis Self - patient is the insured Medical (General) History Medical History History ICD Code Anxiety Arthritis asthma Back,Hip,and Knee pain Depression Chicken pox cyst, kidney Surgical History Surgery Date(Month/Year)
--- OUTSIDE RECORDS SUMMARY | 2025-01-16 17:07 | XMS_ITS | Clinical Summary ---
Author Organization [facility] Address [address] [place] [address] Care Team Providers Care Small Business Sales Representative Name Role Phone Leatha Ramirez PA-C Primary Care Provider [phone] Source Comments PLEASE NOTE, if this patient [...] Date Diagnosed Date Hematuria 02/18/2015 Overview (02/18/2015): [facility] uro Neg cystoscopy 2012 Fu january 2015, recurrent hematuria. Initiated work up again Breast lump in female: left 02/09/2014 Overview (02/09/2014): [place] [facility] [place] Needs mammo in 1 year BETSY (obstructive sleep apnea) 01/21/2014 Anxiety 01/21/2014 Asthma in adult ([facility]) 01/21/2014 Depression 01/21/2014 HTN (hypertension) 01/21/2014 H/O colonoscopy 01/21/2014 Overview (02/09/2014): Normal, 1 polyp removed ASCUS on Pap smear 09/23/2011 Overview (01/21/2014): Not clear if has seen Tipping Machine Operator since then Last pap smear December 2013, results pending ([place] [facility] [place] Resolved Problems Problem Noted Date Diagnosed [...] of Treatment Not on file Insurance HNE ([employer] [place]) Member Subscriber Plan / Payer (Ef fective 2013-Present) Name:Lazaro Smitha Relation to Subscriber:Self Name:Lazaro Smitha Payer ID:[id number] Type:Indemnity Address: [address] [place] [id number] Care Teams Small Business Sales Representative Relationship Specialty Start Date End Date Leatha Ramirez PA-C [address] [place] [address] PCP - General 11/09/18
--- OUTSIDE RECORDS SUMMARY | 2025-01-16 17:07 | XMS_ITS | Clinical Summary ---
Author Organization [facility] Address [address] [place] [address] Care Team Providers Care Carton And Can Supply Supervisor Name Role Phone Tequila Haq MD Primary Care Provider [phone] Allergies Active Allergy Reactions Criticality Noted Date [...] Renal mass 02/19/2017 Hematuria 02/18/2015 Overview: Overview: [facility] uro Neg cystoscopy 2012January 2015, recurrent hematuria. Initiated work up again Breast lump in female 02/09/2014 Overview: Overview: Biopsy done january 2014 at [facility] [place] Negative per pt Needs mammo in 1 year Anxiety 01/21/2014 Asthma 01/21/2014 Depression 01/21/2014 H/O colonoscopy 01/21/2014 Overview: Overview: Normal, 1 polyp removed HTN (hypertension) 01/21/2014 BETSY (obstructive sleep apnea) 01/21/2014 ASCUS on Pap smear 09/23/2011 Overview: Overview: Not clear if has seen Autocad Technician since then Last pap smear December 2013, results pending (at [facility] pcp) Social History Tobacco Use Types Packs/Day [...] age to complete this topic Care Teams Carton And Can Supply Supervisor Relationship Specialty Start Date End Date Tequila Haq MD [address] [facility] [address] [place] [address] PCP - General Internal Medicine 05/27/19
== END 2025-01-16 16:14 | disposition home or self-care (01) ==
LOC: HO.HPS 15:34
PROVIDERS: PCP Internal Medicine; Referring Provider Internal Medicine; Visit Provider Internal Medicine
DX: J44.89 Other specified chronic obstructive pulmonary disease (principal); F51.01 Primary insomnia; F41.9 Anxiety disorder, unspecified; J30.9 Allergic rhinitis, unspecified
CPT/HCPCS: 99204

== ENCOUNTER → 2025-01-16 15:33 | Outpatient (BNVA) | payer OTHER, SELFPAY | PROVIDERS: PCP Internal Medicine; Referring Provider Internal Medicine; Visit Provider Internal Medicine ==

== ENCOUNTER 2025-01-31 09:00 | Outpatient (AMB) | payer OTHER, SELFPAY ==
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
--- OUTSIDE RECORDS SUMMARY | 2025-01-31 09:33 | XMS_ITS | Clinical Summary ---
Author Organization [facility] Address [address] [place] [address] Care Team Providers Care Quality Systems Manager Name Role Phone Leatha Ramirez PA-C Primary Care Provider [phone] Source Comments PLEASE NOTE, if this patient [...] Date Diagnosed Date Hematuria 02/18/2015 Overview (02/18/2015): [facility] uro Neg cystoscopy 2012 Fu january 2015, recurrent hematuria. Initiated work up again Breast lump in female: left 02/09/2014 Overview (02/09/2014): Biopsy done january 2014 at [facility] [place] Negative per pt Needs mammo in 1 year BETSY (obstructive sleep apnea) 01/21/2014 Anxiety 01/21/2014 Asthma in adult ([facility]) 01/21/2014 Depression 01/21/2014 HTN (hypertension) 01/21/2014 H/O colonoscopy 01/21/2014 Overview (02/09/2014): Normal, 1 polyp removed ASCUS on Pap smear 09/23/2011 Overview (01/21/2014): Not clear if has seen Inspector Precision since then Last pap smear December 2013, results pending (at [facility] [place] pcp) Resolved Problems Problem Noted Date [...] of Treatment Not on file Insurance HNE ([employer] [place]) Member Subscriber Plan / Payer (Ef fective 2013-Present) Name:Lazaro Smitha Relation to Subscriber:Self Name:Lazaro Smitha Payer ID:[id number] Type:Indemnity Address: [address] [place] [id number] Care Teams Quality Systems Manager Relationship Specialty Start Date End Date Leatha Ramirez PA-C [address] [place] [address] PCP - General 11/09/18
--- OUTSIDE RECORDS SUMMARY | 2025-01-31 09:33 | XMS_ITS | Clinical Summary ---
Author Organization [facility] Address [address] [place] [address] Care Team Providers Care Inspector Aligning Name Role Phone Tequila Haq MD Primary Care Provider [phone] Allergies Active Allergy Reactions Criticality Noted Date [...] Renal mass 02/19/2017 Hematuria 02/18/2015 Overview: Overview: [facility] uro Neg cystoscopy 2012January 2015, recurrent hematuria. Initiated work up again Breast lump in female 02/09/2014 Overview: Overview: Biopsy done january 2014 at [facility] Negative per pt Needs mammo in 1 year Anxiety 01/21/2014 Asthma 01/21/2014 Depression 01/21/2014 H/O colonoscopy 01/21/2014 Overview: Overview: Normal, 1 polyp removed HTN (hypertension) 01/21/2014 BETSY (obstructive sleep apnea) 01/21/2014 ASCUS on Pap smear 09/23/2011 Overview: Overview: Not clear if has seen Straightener since then Last pap smear December 2013, results pending (at [facility] pcp) Social History Tobacco Use Types Packs/Day [...] age to complete this topic Care Teams Inspector Aligning Relationship Specialty Start Date End Date Tequila Haq MD [address] [facility] [address] [place] [address] PCP - General Internal Medicine 05/27/19
--- OUTSIDE RECORDS SUMMARY | 2025-01-31 09:34 | XMS_ITS | Patient Health Record ---
Author Organization [facility] Address [address] [place] [address] Care Team Providers Care Skin Installer Name Role Phone Eun DILL, [facility] Primary Care Provider Unavailab Benito Reyes Unavailable [phone] Allergies Allergen (clinical drug ingredient) Drug/Non Drug [...] W/U Status Risk Notes Problem Achilles bursitis (661102084) Achilles tendinitis, left leg (M76.62) Active confirmed Problem Peroneal tendinitis (93615678) Peroneal tendinitis, left leg (M76.72) Active confirmed Plan Of Treatment Pending Test Test Name Order Date X ray : Ankle, left 3V 07/03/2022 [id number] TENDON SHEATH/LIGAMENT 1 Insurance Providers Payer Name Payer Address Payer Phone Subscriber Number Group Number Insured Name Patient Relationship to Insured Coverage Start Date Coverage End Date [employer] [address] [place], [place] [address] [phone] [id number] Smitha Willis Self - patient is the insured Medical (General) History Medical History History ICD Code Anxiety Arthritis asthma Back,Hip,and Knee pain Depression Chicken pox cyst, kidney Surgical History Surgery Date(Month/Year)
== END 2025-01-31 09:25 | disposition home or self-care (01) ==
LOC: HO.HOP 09:00
PROVIDERS: PCP Internal Medicine; Visit Provider Clinical Nurse Specialist Psychiatric/Mental Health
DX: F32.1 Major depressive disorder, single episode, moderate (principal); F51.01 Primary insomnia
CPT/HCPCS: 99214

== ENCOUNTER → 2025-01-31 09:00 | Outpatient (BNVA) | payer OTHER, SELFPAY | PROVIDERS: PCP Internal Medicine; Visit Provider Clinical Nurse Specialist Psychiatric/Mental Health ==

== ENCOUNTER 2025-02-08 14:45 | Outpatient (AMB) | payer OTHER, SELFPAY ==
--- NOTE | 2025-02-08 14:46 | MHC.OFFVIS ---
Vital Signs 02/08/25 14:50 Height 5 ft 3 in Weight 197 lb BMI 34.9 Intake Visit Reasons: Left knee pain and giving way Intake Note: Smitha is a 64 year old female who presents with complaints of progressively worsening left knee pain and giving way. The patient states that her symptoms have gotten worse over the last year in spite of continued non operative treatments. She has failed the last 6 weeks of conservative treatment which has included diclofenac topical gel, Tylenol, anti-inflammatory medicines, a home exercise program and physical therapy exercises. The patient states that her left knee will give out several times per day. Allergies No Known Allergies Allergy (Verified 02/08/25 14:50) Medication List - Last Reconciled 02/08/25 by Ronan Clark MD albuterol sulfate 90 mcg/actuation 1 inh inhalation QID PRN cholecalciferol (vitamin D3) 25 mcg PO DAILY diclofenac sodium 1% (Arthritis Pain (diclofenac)) 2 grams topical QID 30 days estradiol 0.5 mg PO DAILY medroxyprogesterone 2.5 mg PO DAILY mirtazapine (Remeron) 30 mg PO BEDTIME montelukast 10 mg PO DAILY umeclidinium-vilanterol 62.5-25 mcg/actuation (Anoro Ellipta) 1 inh inhalation DAILY 60 days [facility] Medical History (Updated 02/08/25 @ 15:39 by Ronan Clark MD) Insomnia Asthma with COPD Depression Renal cyst, acquired, right Hypertension Lumbar back pain Surgical History No pertinent past surgical history Family History Mother Diabetes Father No problems noted. 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 Current occupational exposures/hazards: No Cognitive needs: No Hearing needs: No Vision needs: Yes (glasses) Physical Exam Vital Signs: BMI result Body Mass Index 34.9 Const Other: Well-nourished well-developed very friendly female awake alert and oriented x3 in no acute distress Extrem Other: Bilateral lower extremity examination shows good capillary refill, no skin lesions noted, normal sensation light touch left knee examination shows a moderate effusion, minimal crepitus with range of motion, tenderness along her medial joint line, positive Alan's test, no instability Office Procedures AMB Joint Injection/Aspiration Joint Injection/Aspiration Primary Site: left knee Prep: site was prepped using aseptic technique Injected: 40 mg of, DepoMedrol and 1% plain lidocaine Procedure: The patient tolerated the procedure well Coding 11561 - Large joint Procedure code (CPT) selection complete Results Reviewed Results Reviewed: X-rays of the patient's left knee show mild diffuse joint space narrowing, no acute bony abnormalities Assessment & Plan Assessment & Plan (1) Left knee pain: Code(s): M25.562 - Pain in left knee Category: Medical (2) Tear of medial meniscus of left knee: Code(s): S83.242A - Other tear of medial meniscus, current injury, left knee, initial encounter Category: Medical Plan Ms. Willis presents with left knee pain and mechanical symptoms most likely due to a medial meniscus tear. The risks and benefits of a left knee cortisone injection were discussed at length with the patient. The patient wished to proceed. She has tolerated the injection well. I will also send her for an MRI of her left knee for further evaluation of her medial meniscus. I will see her back once the MRI is completed to discuss the findings and treatment options. Feel free to call me at any time should questions regarding her orthopedic management arise. Thank you very much for asking me to see this very friendly patient. I spent 22 minutes in reviewing the patient's records and imaging studies, seeing the patient and documenting in the medical record. Orders: Orders MR knee LT wo con 02/08/25 S83.242A - Other tear of medial meniscus, current injury, left knee, initial encounter AMB Joint Injection/Aspiration 02/08/25 M25.562 - Pain in left knee, S83.242A - Other tear of medial meniscus, current injury, left knee, initial encounter Coding Level of Care Code New Pt Level 3 (43506) Complex EM visit Add On G2211 Diagnoses Left knee pain M25.562 Tear of medial meniscus of left knee S83.242A CPT Codes Coding - 80085 Large joint: 29876 - Large joint ([id number])
[2025-02-08 14:50] VITALS: BMI 34.9
--- OUTSIDE RECORDS SUMMARY | 2025-02-08 15:32 | XMS_ITS | Clinical Summary ---
Author Organization [facility] Address [address] [place] [address] Care Team Providers Care Housing Inspector Name Role Phone Tequila Haq MD Primary Care Provider [phone] Allergies Active Allergy Reactions Criticality Noted Date [...] Renal mass 02/19/2017 Hematuria 02/18/2015 Overview: Overview: [facility] uro Neg cystoscopy 2012January 2015, [...] Overview: Overview: Not clear if has seen Plate Mounter since then Last pap smear December 2013, [...] age to complete this topic Care Teams Housing Inspector Relationship Specialty Start Date End Date Tequila Haq MD [address] [facility] [address] [place] [address] PCP - General Internal Medicine 05/27/19
== END 2025-02-08 15:13 | disposition home or self-care (01) ==
LOC: HO.HOS 14:45
PROVIDERS: PCP Internal Medicine; Visit Provider Orthopaedic Surgery
DX: M25.562 Pain in left knee (principal); S83.242A Other tear of medial meniscus, current injury, left knee, initial encounter
CPT/HCPCS: 20610; 99213

== ENCOUNTER → 2025-02-08 14:45 | Outpatient (BNVA) | payer OTHER, SELFPAY | PROVIDERS: PCP Internal Medicine; Visit Provider Orthopaedic Surgery | DX: M25.562 Pain in left knee (principal); S83.242A Other tear of medial meniscus, current injury, left knee, initial encounter; X58.XXXA Exposure to other specified factors, initial encounter; Y93.9 Activity, unspecified; Y92.9 Unspecified place or not applicable; Y99.9 Unspecified external cause status | CPT/HCPCS: 20610; J1010; J2003 ==

== ENCOUNTER → 2025-02-20 18:32 | Outpatient (BNV) | payer OTHER, SELFPAY | PROVIDERS: PCP Internal Medicine; Visit Provider Radiology Diagnostic Radiology | DX: S89.92XA Unspecified injury of left lower leg, initial encounter (principal); M25.462 Effusion, left knee | CPT/HCPCS: 73721 ==

== ENCOUNTER 2025-02-20 18:39 | Outpatient (REF) | payer OTHER, SELFPAY ==
--- NOTE | ~2025-02-20 | MR_ITS ---
CLINICAL HISTORY: S83.242A - Other tear of medial meniscus, current injury, left knee, ini... MR left knee without contrast Comparison: CR/SR - XR KNEE LT 2V - 11/24/24 11:51 EDT Findings: The medial and lateral menisci are intact. There is increased signal in the posterior horn of the medial meniscus without extension to the articular surface. The anterior and posterior cruciate ligaments are intact. The medial and lateral collateral ligaments are intact without periligamentous edema. No edema in the posterior lateral corner. The extensor mechanism is intact. Small joint effusion. Trace murillo's cyst. There is edema in the subcutaneous fat anteriorly. No fracture, stress reaction or osseous lesion. There is partial-thickness chondromalacia in the medial tibiofemoral compartment. Minimal amount partial-thickness chondromalacia in the patellofemoral compartment. Hyaline cartilage in the lateral tibiofemoral compartment is preserved. Impression: Small joint effusion. Intact menisci. No cruciate or collateral ligament tears. No osseous abnormality. Partial-thickness chondromalacia most prominent in the medial tibiofemoral compartment. This document has been electronically signed by: Lisbeth Hwang MD on 02/21/2025 16:20:21
--- OUTSIDE RECORDS SUMMARY | 2025-02-20 18:41 | XMS_ITS | Clinical Summary ---
Author Organization [facility] Address [address] [place] [address] Care Team Providers Care Telemarketing Agent Name Role Phone Tequila Haq MD Primary Care Provider [phone] Allergies Active Allergy Reactions Criticality Noted Date [...] Renal mass 02/19/2017 Hematuria 02/18/2015 Overview: Overview: [facility] uro Neg cystoscopy 2012January 2015, recurrent hematuria. Initiated work up again Breast lump in female 02/09/2014 Overview: Overview: Biopsy done january 2014 at [facility] [place] per pt Needs mammo in 1 year Anxiety 01/21/2014 Asthma 01/21/2014 Depression 01/21/2014 H/O colonoscopy 01/21/2014 Overview: Overview: Normal, 1 polyp removed HTN (hypertension) 01/21/2014 BETSY (obstructive sleep apnea) 01/21/2014 ASCUS on Pap smear 09/23/2011 Overview: Overview: Not clear if has seen Inner Tube Tuber Machine Operator since then Last pap smear December 2013, results pending (at [facility] pcp) Social History Tobacco Use Types Packs/Day [...] 5 season) 2024 10/12/2020, 09/21/2020 Influenza Vaccine (Season Ended) 2025 05/25/2019 RSV Adult > 60+ Yrs or (1 - 1-dose 75+ series) 2035 Hepatitis B Vaccines Aged Out No long er eligible based on patient's age to complete this topic RSV Ped < 20 months Aged Out No longe r eligible based on patient's age to complete this topic Care Teams Telemarketing Agent Relationship Specialty Start Date End Date Tequila Haq MD [address] [facility] [address] [place] [address] PCP - General Internal Medicine 05/27/19
== END 2025-02-20 18:40 | disposition home or self-care (01) ==
LOC: HO.MRI 18:39
PROVIDERS: PCP Internal Medicine; Visit Provider Orthopaedic Surgery
DX: S83.242A Other tear of medial meniscus, current injury, left knee, initial encounter (principal)
CPT/HCPCS: 73721

== ENCOUNTER 2025-03-08 13:48 | Outpatient (AMB) | payer OTHER, SELFPAY ==
[2025-03-08 13:52] VITALS: BMI 34.9
--- NOTE | 2025-03-08 13:52 | MHC.OFFVIS ---
Vital Signs 03/08/25 13:52 Height 5 ft 3 in Weight 197 lb BMI 34.9 Intake Visit Reasons: OV-LT knee MRI review Intake Note: Smitha is a 64 year old female who presents with complaints of progressively worsening left knee pain and giving way. The patient states that her symptoms have gotten worse over the last year in spite of continued non operative treatments. She has failed the last 6 weeks of conservative treatment which has included diclofenac topical gel, Tylenol, anti-inflammatory medicines, a home exercise program and physical therapy exercises. The patient states that her left knee will give out several times per day. Allergies No Known Allergies Allergy (Verified 03/08/25 13:52) Medication List - Last Reconciled 03/09/25 by Ronan Clark MD albuterol sulfate 90 mcg/actuation 1 inh inhalation QID PRN cholecalciferol (vitamin D3) 25 mcg PO DAILY diclofenac sodium 1% (Arthritis Pain (diclofenac)) 2 grams topical QID 30 days estradiol 0.5 mg PO DAILY medroxyprogesterone 2.5 mg PO DAILY mirtazapine (Remeron) 30 mg PO BEDTIME montelukast 10 mg PO DAILY umeclidinium-vilanterol 62.5-25 mcg/actuation (Anoro Ellipta) 1 inh inhalation DAILY 60 days [facility] Medical History Insomnia Asthma with COPD Depression Renal cyst, acquired, right Hypertension Lumbar back pain Surgical History No pertinent past surgical history Family History Mother Diabetes Father No problems noted. 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 Current occupational exposures/hazards: No Cognitive needs: No Hearing needs: No Vision needs: Yes (glasses) Physical Exam Vital Signs: BMI result Body Mass Index 34.9 Const Other: Well-nourished well-developed very friendly female awake alert and oriented x3 in no acute distress Extrem Other: Left knee examination shows a minimal effusion, mild crepitus with range of motion, tenderness along her medial joint line, positive Alan's test, no instability Results Reviewed Results Reviewed: Standing full weight-bearing x-rays of the patient's left knee show mild diffuse joint space narrowing, no acute bony abnormalities MRI of the patient's left knee shows mild degenerative changes as well as a tear of the medial meniscus Assessment & Plan Assessment & Plan (1) Tear of medial meniscus of left knee: Code(s): S83.242A - Other tear of medial meniscus, current injury, left knee, initial encounter Category: Medical Plan Ms. Willis presents with left knee pain and mechanical symptoms due to a medial meniscus tear. I had a lengthy discussion with the patient regarding the treatment options. At this point she appears to be failing continued non operative treatments. She is considering undergoing left knee arthroscopic surgery later this year. She will contact my office to pick a surgery date if she chooses to do so. Surgery will involve left knee arthroscopic partial medial meniscectomy. She will continue with her activity modifications in the meantime. Feel free to call me at any time should questions regarding her orthopedic management arise. I spent 21 minutes in reviewing the patient's records and imaging studies, seeing the patient and documenting in the medical record. Coding Level of Care Code Est Pt Level 3 (13748) Complex EM visit Add On G2211 Diagnoses Tear of medial meniscus of left knee S83.242A
--- OUTSIDE RECORDS SUMMARY | 2025-03-08 16:24 | XMS_ITS | Clinical Summary ---
Author Organization [facility] Address [address] [place] [address] Care Team Providers Care General Neurologist Name Role Phone Tequila Haq MD Primary Care Provider [phone] Allergies Active Allergy Reactions Criticality Noted Date [...] Renal mass 02/19/2017 Hematuria 02/18/2015 Overview: Overview: [facility] uro Neg cystoscopy 2012January 2015, recurrent hematuria. Initiated work up again Breast lump in female 02/09/2014 Overview: Overview: [place] [facility] Needs mammo in 1 year Anxiety 01/21/2014 Asthma 01/21/2014 Depression 01/21/2014 H/O colonoscopy 01/21/2014 Overview: Overview: Normal, 1 polyp removed HTN (hypertension) 01/21/2014 BETSY (obstructive sleep apnea) 01/21/2014 ASCUS on Pap smear 09/23/2011 Overview: Overview: Not clear if has seen Wire Spooler since then Last pap smear December 2013, results pending (at [facility] [place] Social History Tobacco Use Types Packs/Day [...] age to complete this topic Care Teams General Neurologist Relationship Specialty Start Date End Date Tequila Haq MD [address] [facility] [address] [place] [address] PCP - General Internal Medicine 05/27/19
== END 2025-03-08 14:13 | disposition home or self-care (01) ==
LOC: HO.HOS 13:49
PROVIDERS: PCP Internal Medicine; Visit Provider Orthopaedic Surgery
DX: S83.242A Other tear of medial meniscus, current injury, left knee, initial encounter (principal)
CPT/HCPCS: 99213; G2211

== ENCOUNTER 2025-03-21 08:01 | Outpatient (AMB) | payer OTHER, SELFPAY ==
--- OUTSIDE RECORDS SUMMARY | 2025-03-21 08:03 | XMS_ITS | Clinical Summary ---
Author Organization [facility] Address [address] [place] [address] Care Team Providers Care Popped Corn Oven Attendant Name Role Phone Leatha Ramirez PA-C Primary Care Provider [phone] Source Comments PLEASE NOTE, if this patient [...] Date Diagnosed Date Hematuria 02/18/2015 Overview (02/18/2015): [facility] uro Neg cystoscopy 2012 Fu january 2015, recurrent hematuria. Initiated work up again Breast lump in female: left 02/09/2014 Overview (02/09/2014): Biopsy done january 2014 at [facility] Negative per pt Needs mammo in 1 year BETSY (obstructive sleep apnea) 01/21/2014 Anxiety 01/21/2014 Asthma in adult ([facility]) 01/21/2014 Depression 01/21/2014 HTN (hypertension) 01/21/2014 H/O colonoscopy 01/21/2014 Overview (02/09/2014): Normal, 1 polyp removed ASCUS on Pap smear 09/23/2011 Overview (01/21/2014): Not clear if has seen Crusher Operator since then Last pap smear December 2013, results pending (at [facility] pcp) Resolved Problems Problem [...] 78 12/20/2015 4:01 PM EDT Temperature 36.4 C (97.6 F) 12/20/2015 4:01 PM EDT Respiratory Rate 14 12/20/2015 4:01 PM EDT Oxygen Saturation 95% 01/18/2015 9:39 AM EDT Inhaled Oxygen Concentration - - Weight 83.8 kg (184 lb 11.2 oz) 12/20/2015 4:01 PM EDT Height 160 cm (5' 3 ) 05/22/2014 3:42 PM EDT Body Mass Index 32.72 05/22/2014 3:42 PM EDT Plan of Treatment Not on file Insurance [employer] ([employer] Member Subscriber Plan / Payer (Ef fective 2013-Present) Name:Lazaro Smitha Relation to Subscriber:Self Name:Lazaro Smitha Payer ID:[id number] Type:Indemnity Address: [address] [place] [id number] Care Teams Popped Corn Oven Attendant Relationship Specialty Start Date End Date Leatha Ramirez PA-C [address] [place] [address] PCP - General 11/09/18
--- OUTSIDE RECORDS SUMMARY | 2025-03-21 08:03 | XMS_ITS | Patient Health Record ---
Author Organization [facility] Address [address] [place] [address] Care Team Providers Care Driver/Refuse Collector Name Role Phone Eun DILL, [facility] Primary Care Provider Unavailab Benito Reyes Unavailable [phone] Allergies Allergen (clinical drug ingredient) Drug/Non Drug Allergy documented on EMR Reaction Allergy Type Onset Date Status seasonal (uncoded) Unknown Allergy A ctive Reason For Referral No Information Medications Medication SIG (Take, Route, Frequency, Duration) Notes Start Date End Date Status Estradiol 0.5 MG 1 tablet Orally Once a day; Duration: 30 day(s) Active ASO Ankle/Foot Stablizing AFO As directe d Wear Daily; Duration: as needed 07/03/2022 Active D3 Active medroxyPROGESTERone [...] W/U Status Risk Notes Problem Achilles bursitis (176069044) Achilles tendinitis, left leg (M76.62) Active confirmed Problem Peroneal tendinitis, left leg (M76.72) Active confirmed Plan Of Treatment Pending Test Test Name Order Date X ray : Ankle, left 3V 07/03/2022 [id number] TENDON SHEATH/LIGAMENT 1 Insurance Providers Payer Name Payer Address Payer Phone Subscriber Number Group Number Insured Name Patient Relationship to Insured Coverage Start Date Coverage End Date [facility] [address] [place] [address] [phone] [id number] Smitha Willis Self - patient is the insured Medical (General) History Medical History History ICD Code Anxiety Arthritis asthma Back,Hip,and Knee pain Depression Chicken pox cyst, kidney Surgical History Surgery Date(Month/Year)
--- OUTSIDE RECORDS SUMMARY | 2025-03-21 08:03 | XMS_ITS | Clinical Summary ---
Author Organization [facility] Address [address] [place] [address] Care Team Providers Care Floorhand Name Role Phone Tequila Hqa MD Primary Care Provider Allergies Active Allergy Reactions Criticality Noted Date [...] Renal mass 02/19/2017 Hematuria 02/18/2015 Overview: Overview: [facility] uro Neg cystoscopy 2012January 2015, recurrent hematuria. Initiated work up again Breast lump in female 02/09/2014 Overview: Overview: [place] [facility] Needs mammo in 1 year Anxiety 01/21/2014 Asthma 01/21/2014 Depression 01/21/2014 H/O colonoscopy 01/21/2014 Overview: Overview: Normal, 1 polyp removed HTN (hypertension) 01/21/2014 BETSY (obstructive sleep apnea) 01/21/2014 ASCUS on Pap smear 09/23/2011 Overview: Overview: Not clear if has seen Quill Winder since then Last pap smear December 2013, results pending ([place] [facility] [place] [...] - 2023-2 5 season) 2024 10/12/2020, 09/21/2020 Fall Risk Assessment 2025 Osteoporosis Screening (DEXA Scan) 2025 Influenza Vaccine (#1) 2025 05/25/2019 RSV Adult > 60+ Yrs or (1 - 1-dose 75+ series) 2035 Hepatitis B Vaccines Aged Out No long er eligible based on patient's age to complete this topic RSV Ped < 20 months Aged Out No longe r eligible based on patient's age to complete this topic Care Teams Floorhand Relationship Specialty Start Date End Date Tequila Haq MD [address] [facility] [address] [place] [address] PCP - General Internal Medicine 05/27/19
[2025-03-21 08:04] VITALS: BP 122/76; BMI 33.7
--- NOTE | 2025-03-21 08:04 | MHC.PC.OV ---
Vital Signs 03/21/25 08:04 Height 5 ft 3 in Weight 190 lb BMI 33.7 BP 122/76 Blood Pressure Location Lt brachial Position Sitting Intake Visit Reasons: depression Intake Note: Patient here for a follow up depression Outside Property Agent Required: No Accompanied by: Self / Same As Patient Allergies No Known Allergies Allergy (Verified 03/21/25 08:11) Medication List - Last Reconciled 03/21/25 by Yajaira Vasquez MD albuterol sulfate 90 mcg/actuation 1 inh inhalation QID PRN cholecalciferol (vitamin D3) 25 mcg PO DAILY diclofenac sodium 1% (Arthritis Pain (diclofenac)) 2 grams topical QID 30 days estradiol 0.5 mg PO DAILY medroxyprogesterone 2.5 mg PO DAILY mirtazapine (Remeron) 30 mg PO BEDTIME montelukast 10 mg PO DAILY umeclidinium-vilanterol 62.5-25 mcg/actuation (Anoro Ellipta) 1 inh inhalation DAILY 60 days Tobacco use date assessed: 09/15/24 Fall risk assessment: No Falls in past year Last assessed Fall Risk: 03/21/25 Dental Screening Dental Screen Date: 11/24/24 HPI HPI Comments History of Present Illness Details The patient is a 65-year-old female presenting with a follow-up on her chronic conditions. She has a history of asthma with asthma and Chronic Obstructive Pulmonary Disease (COPD), which was previously managed by a conveyor feeder offbearer. She has discontinued the use of Anoro due to improvement in symptoms and now uses Proair as needed, particularly in humid conditions. The patient also has a history of depression with insomnia, for which she is taking Remeron at night. Her PHQ9 score has improved to 4, indicating better management of her depressive symptoms. In terms of preventative care, she has not yet had a mammogram this year and is due for a colonoscopy in 2025. She is also scheduled to receive vaccinations for pneumonia, shingles, and RSV. [facility] Medical History (Updated 03/21/25 @ 10:04 by Yajaira Vasquez MD) Major depressive disorder, single episode, moderate Insomnia Asthma with COPD Depression Renal cyst, acquired, right Hypertension Lumbar back pain Surgical History No pertinent past surgical history Family History Mother Diabetes Father No problems noted. 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 1. Little interest or pleasure in doing things: several days 2. Feeling down, depressed, or hopeless: several days 3. Trouble falling or staying asleep, or sleeping too much: several days 4. Feeling tired or having little energy: several days 5. Poor appetite or overeating: not at all 6. Feeling bad about yourself - or that you are a failure or have let yourself or your family down: not at all 7. Trouble concentrating on things, such as reading the newspaper or watching television: not at all 8. Moving or speaking so slowly that other people could have noticed. Or the opposite - being so fidgety or restless that you have been moving around a lot more than usual: not at all 9. Thoughts that you would be better off or of hurting yourself in some way: not at all Total score: 4 Depression Screening Interpretation: Positive Depression Screening Follow-up: Existing condition and Follow-up Visit Requested Depression Screening Done: Yes 72634 - PHQ-9 Billing: Yes Source: Developed by Drs. Mikel Razo, Leigha Alexis, Иван Denson and colleagues, with an educational freddie from [employer]. Thrive Questionnaire Date Thrive assessed: 09/15/24 I am a: Patient What is your living situation today?: I choose not to answer this question Within the past 12 months, did the food you bought not last and you didn't have the money to get more?: Sometimes True Within the past 12 months, did you worry whether your food would run out before you got money to buy more?: Sometimes True Do you have trouble paying for medicines?: Yes Do you have trouble getting transportation to medical appointments?: No Do you have trouble paying your heating and electricity bill?: No Do you have trouble taking care of your child, family member or friend?: No Do you have trouble with day-to-day activities such as bathing, preparing meals, shopping, managing finances, etc.?: No Are you currently unemployed and looking for a job?: No Are you interested in more education?: No Please select the resources that you would like help with: Food and Paying for medicine Currently or been in a relationship where the following occur: I choose not to answer THRIVE Score: 2 AUDIT C Alcohol Use Questionnaire (AUDIT-C) 1. How often do you have a drink containing alcohol?: Never Total Score: 0 Score Reviewed/Action Taken: No ARTI-7 AMB Questionnaire ARTI-7 Date ARTI - 7 assessed: 09/15/24 Feeling nervous, anxious, or on edge: 1 = Several days Not being able to stop or control worryin = Not at all Worrying too much about different things: 1 = Several days Trouble relaxin = Several days Being so restless that it is hard to sit still: 0 = Not at all Becoming easily annoyed or irritable: 1 = Several days Feeling afraid as if something awful might happen: 0 = Not at all Total ARTI-7 score (0-4 normal; 5-9 mild; 10-14 moderate; 15-21 severe): 4 Source: Developed by Drs. Mikel Razo, Leigha Alexis, Иван Denson and colleagues, with an educational freddie from [employer]. ARTI-7 Assessment Billing ARTI-7 Assessment Tool: ARTI-7 Assessment 12145 Review of Systems Const All systems reviewed & are unremarkable except as noted in HPI and below Card Denies chest pain at rest, Denies chest pain with activity, Denies edema, Denies irregular heart rhythm, Denies claudication, Denies dyspnea, Denies dyspnea on exertion, Denies orthopnea, Denies paroxysmal nocturnal dyspnea and Denies slow heart rate Resp Denies cough, Denies dyspnea and Denies dyspnea on exertion GI Denies abdominal pain, Denies change in bowel habits, Denies excessive flatus, Denies nausea and Denies vomiting Denies urinary incontinence, Denies urinary hesitancy and Denies urinary urgency Neuro Denies lack of coordination Physical exam (Primary Care) Vital Signs: Last Vital Signs BP 122/76 03/21/25 08:04 BMI result Body Mass Index 33.7 Tobacco/Smoking Status: Tobacco use Status Tobacco use date assessed 09/15/24 03/21/25 08:11 Patient Tobacco Use Status Former Tobacco user (14 03/21/25 08:11 years ago) Tobacco use type Cigarette 03/21/25 08:11 e-Cigarette/Vaping Use Never Used 03/21/25 08:11 PHQ-9: PHQ-9 Score PHQ-9: Total score 4 03/21/25 08:26 Depression Screening Interpretation: Positive Depression Screening Follow-up: Existing condition and Follow-up Visit Requested Thrive Assessment: Date of Thrive Assessment Date Thrive assessed 09/15/24 03/21/25 08:11 Currently or been in a relationship where the following occur: I choose not to answer Resp Effort & Inspection: normal respiratory effort Auscultation: clear to auscultation bilaterally Cardio Jugular venous distension: no JVD Rate: regular rate Rhythm: regular rhythm Heart sounds: S1 normal heart sound present and S2 normal heart sound present Extrem General: Yes full ROM Immunizations pneumoc 20-bonnie conj-dip cr(PF) 0.5 mL IM syringe Performing Provider: Yajaira Vasquez MD [facility] Administered by: SVETA Shah on 03/21/25 08:26 Dose Route Admin Location Dispensed Lot Number Expiration Date [facility] Tax Assessor 0.5 mL IM Right Deltoid 0.5 mL [id number] 03/14/26 [employer] Total Dispensed Waste 0.5 mL 0 % VIS Given Date VIS Provided VIS Publication Date 03/21/25 Single Vaccine 25 Eligibility Eligibility Date Funding Source Not [facility] Eligible 03/21/25 Private Coding Level of Care Code Est Pt Level 4 (93391) Complex EM visit Add On G2211 Diagnoses Mild recurrent major depression F33.0 Anxiety F41.9 Asthma with COPD J44.89 Primary insomnia F51.01 Insomnia type: primary Additional Codes ARTI-7 Assessment Billing - ARTI-7 Assessment Tool: ARTI-7 Assessment 88378 ([id number]) PHQ-9 - 83540 - PHQ-9 Billing: Yes ([id number]) Time Spent (min) 22 Assessment & Plan Assessment & Plan (1) Mild recurrent major depression: Code(s): F33.0 - Major depressive disorder, recurrent, mild Category: Medical (2) Anxiety: Comment: I THINK SHE HAS A PAST HISTORY OF ACUTE DEPRESSIVE EPISODE AT LEAST AT 1 TIME. FOLLOWING THAT CONTINUES TO HAVE ANXIETY AND INSOMNIA. HAS BEEN SEEING A PSYCHIATRIST AT [facility]. Code(s): F41.9 - Anxiety disorder, unspecified Category: Medical (3) Asthma with COPD: Comment: PATIENT HAS HISTORY OF INTERMITTENT COUGH AND SOME WHEEZING. PAST HISTORY OF SMOKING. CLINICALLY I THINK SHE HAS ASTHMA/COPD SYNDROME. Code(s): J44.89 - Other specified chronic obstructive pulmonary disease Category: Medical (4) Insomnia: Comment: DESCRIBES THAT SHE HAS DIFFICULTY IN SLEEPING AT NIGHT. SHE DOES DESCRIBE WAKING UP WITH AIR HUNGER/GASPING LIKE FEELING. SYMPTOMS ARE SUGGESTIVE OF POSSIBLE OBSTRUCTIVE SLEEP APNEA. SHE ALSO DOES HAVE CHRONIC INSOMNIA WHICH MAY BE RELATED TO HER CHRONIC ANXIETY/DEPRESSION. Code(s): G47.00 - Insomnia, unspecified Category: Medical Qualifiers: Insomnia type: primary Qualified Code(s): F51.01 - Primary insomnia Plan The patient will continue with her current management plan for asthma, utilizing Proair as needed, especially in humid conditions. She will maintain her current regimen for depression with Remeron, given the improvement in her PHQ9 score. Preventative care measures include scheduling a mammogram and planning for a colonoscopy in 2025. She will receive vaccinations for pneumonia, shingles, and RSV as part of her preventative care strategy. Patient was informed and verbally consented to the use of an ambient scribe for clinic note documentation during this visit. Orders: Orders Pneumococcal 20 Immunization Today Z23 - Encounter for immunization Lipid Panel Today E78.5 - Hyperlipidemia, unspecified MM tomosynthesis screening BI Today Z12.31 - Encounter for screening mammogram for malignant neoplasm of breast XR DEXA axial skeleton Today Z78.0 - Asymptomatic menopausal state Vitamin D 25-OH Total Today E55.9 - Vitamin D deficiency, unspecified Comprehensive [place]. Panel Fast Today J44.89 - Other specified chronic obstructive pulmonary disease
== END 2025-03-21 08:25 | disposition home or self-care (01) ==
LOC: HO.HMCH 08:01
PROVIDERS: PCP Internal Medicine; Visit Provider Internal Medicine
DX: F33.0 Major depressive disorder, recurrent, mild (principal); F41.9 Anxiety disorder, unspecified; J44.89 Other specified chronic obstructive pulmonary disease; F51.01 Primary insomnia; Z23 Encounter for immunization

== ENCOUNTER → 2025-03-21 08:01 | Outpatient (BNVA) | payer OTHER, SELFPAY | PROVIDERS: PCP Internal Medicine; Visit Provider Internal Medicine | DX: F51.01 Primary insomnia (principal); F33.0 Major depressive disorder, recurrent, mild; J44.9 Chronic obstructive pulmonary disease, unspecified; F41.9 Anxiety disorder, unspecified; J44.89 Other specified chronic obstructive pulmonary disease; Z23 Encounter for immunization | CPT/HCPCS: 90471; 90677; 96127 ==

== ENCOUNTER 2025-06-15 08:13 | Outpatient (REF) | payer OTHER, SELFPAY ==
--- OUTSIDE RECORDS SUMMARY | 2025-06-15 08:25 | XMS_ITS | Clinical Summary ---
Author Organization [facility] Address [address] [place] [phone] Phone Care Team Providers Care Insolvency Practitioner Name Role Phone Tequila Haq MD Primary Care Provider [phone] Medications medroxyPROGESTER one (PROVERA) 2.5 mg tablet Take 1 tablet (2.5 mg total) by mouth 1 (one) time each day. 90 each 03/09/2025 Active estradioL (ESTRACE) 0.5 mg tablet TAKE 1 TABLET BY MOUTH 1 TIME EACH DAY. - INS NOT PAYING, MEMBER MUST CALL [phone] 90 tablet 1 04/03/2025 Active Medical History Medical History Date Comments Anxiety 01/21/2014 DX:Anxiety Asthma 04/26/2018 DX:Asthma Depression 01/21/2014 DX:Depression Diverticulosis 07/14/2017 DX:Diverticulosi s HTN (hypertension) 01/21/2014 DX:HTN (hyper tension) BETSY (obstructive sleep apnea) 01/21/2014 DX :BETSY (obstructive sleep apnea) Renal mass 02/19/2017 DX:Renal mass Family History Medical History Relation Name Comments Arthritis Sister Relation Name Status Comments Sister Social History Tobacco Use Types Packs/Day Years Used Date Smoking Tobacco: Never Smokeless Tobacco: Never Alcohol Use Standard Drinks/Week Comments No 0 (1 standard drink = 0.6 oz pur e alcohol) Comments Unknown Sex and Gender Information Value Date Recorded Sex Assigned at Not on file Legal Sex Female 1:56 PM EST Gender Identity Not on file Sexual Orientation Not on file Obstetrics History Last Filed Vital Signs Vital Sign Reading Time Taken Comments Blood Pressure 119/77 02/09/2024 8:46 AM EDT Pulse 76 02/09/2024 8:46 AM EDT Temperature - - Respiratory Rate - - Oxygen Saturation - - Inhaled Oxygen Concentration - - Weight 82.1 kg (181 lb) 02/09/2024 8:46 AM EDT Height 160 cm (5' 3 ) 02/09/2024 8:46 AM EDT Body Mass Index 32.06 02/09/2024 8:46 AM EDT Plan of Treatment Upcoming Encounters Date Type Department Care Team (Late st Contact Info) Description 06/20/2025 9:00 AM EDT Appointment [facility] Density [address] [place] [address] Health Maintenance Due Date Last Done Comments Colorectal Cancer Screening: Colonoscopy 1960 DTaP,Tdap,and Td Vaccines (1 - Tdap) 1979 Cervical Cancer Screening: HPV 1981 Zoster Vaccines (1 of 2) 2010 Pneumococcal Vaccine: 50+ Years (2 of 2 - PPSV23, PCV20, or PCV21) 09/08/2017 07/14/2017 RSV Immunization Adult Patients (1 - Risk 60-74 years 1-dose series) 2020 Cholesterol Screening (Lipid Panel) 08/22/2022 Hepatitis C Screening 08/22/2022 Osteoporosis Screening (Bone Density Screening) 08/22/2022 Social Influencers of Health Screening 08/22/2022 Hypertension/CHF/CAD Annual BMP Blood Test 08/28/2022 Depression Screening 09/14/2024 Falls Risk Assessment 2025 COVID-19 Vaccine ( season) 2025 10/12/2020, 09/21/2020 Influenza Vaccine (#1) 2025 05/25/2019 Breast Cancer Screening 10/01/2025 10/01/19 24, 09/25/2022, 09/23/2021, Additional history exists HIB Vaccines Aged Out No longer eligi ble based on patient's age to complete this topic HPV Vaccines Aged Out No longer eligi ble based on patient's age to complete this topic Hepatitis A Vaccines Aged Out No long er eligible based on patient's age to complete this topic Hepatitis B Vaccines Aged Out No long er eligible based on patient's age to complete this topic IPV Vaccines Aged Out No longer eligi ble based on patient's age to complete this topic MMR Vaccines Aged Out No longer eligi ble based on patient's age to complete this topic Meningococcal ACWY Vaccine Aged Out N o longer eligible based on patient's age to complete this topic Meningococcal B Vaccine Aged Out No l onger eligible based on patient's age to complete this topic RSV Immunization Patients Under 20 months Aged Out No longer eligible based on patient's age to complete this topic Varicella Vaccines Aged Out No longer eligible based on patient's age to complete this topic Procedures Procedure Name Priority Date/Time Associated Diagnosis Comments [facility] SCREENING DIGITAL Routine 10/01/2023 8:20 AM EST Encounter for screening mammogram for malignant neoplasm of breast from Last 3 Months or Most Recently Relevant to Health Maintenance Results * [facility] SCREENING DIGITAL (10/01/2023 8:20 AM EST) Anatomical Region Laterality Modality Mammography 10/01/2023 7:19 AM EST Narrative 10/01/2023 8:20 AM EST [facility] Diagnostic Imaging Department [address] [place] [address] Patient: RADHAANGELA /Age/Sex: 1960 - 63 - F Unit#: [id number] Location/Status: [facility]/REG CLI Mnemonic/Ordering Site: [facility] Ordering Physician: SEDA ESCALANTE MD Clarisa Screening Digital - 10/01/23 - 0737 Report Status:Signed EXAM: [facility] Screening Digital EXAM DATE AND TIME: 10/01/2023 7:38 AM HISTORY: Annual screening COMPARISON: Multiple exams dating back to 2016 TECHNIQUE: Bilateral digital breast tomosynthesis was performed in the CC and MLO projections. Computer aided detection with PellianoD VirtualLogix 3D 3.1 was employed. TISSUE DENSITY: b. There are scattered areas of fibroglandular density. FINDINGS: There is a group of microcalcifications in the lower right breast seen on the cc and MLO view with possible associated focal asymmetry. No associated arch itectural distortion. The left breast is unremarkable. IMPRESSION: There is a group of microcalcifications in the lower right breast seen on the cc and MLO view with possible associated focal asymmetry. Recommend diagnostic mammogram of the right breast with spot compression CC and MLO tomographic views as well as CC and true lateral magnification views. BI-RADS: Category 0: Incomplete - Need Additional Imaging Evaluation Dictating Physician: PRATIK JESUS MD Electronically Signed by: PRATIK JESUS MD Dic Date/Time: 10/01/23812 Sign date/Time: 10/01/23819 Procedure Note Pratik Jesus MD - 05/02/2024 [facility] Diagnostic Imaging Department [address] [place] [address] Patient: ANGELA GARCIA./Age/Sex: 1960 - 63 - F Unit#: [id number] Location/Status: [facility]/REG CLI Mnemonic/Ordering Site: [facility] Ordering Physician: SEDA ESCALANTE MD Clarisa Screening Digital - 10/01/23 - 0737 Report Status:Signed EXAM: [facility] Screening Digital EXAM DATE AND TIME: 10/01/2023 7:38 AM HISTORY: Annual screening COMPARISON: Multiple exams dating back to 2016 TECHNIQUE: Bilateral digital breast tomosynthesis was performed in the CCand MLO projections. Computer aided detection with iCAD VirtualLogix 3D 3.1was employed. TISSUE DENSITY: b. There are scattered areas of fibroglandular density. FINDINGS: There is a group of microcalcifications in the lower right breast seen onthe cc and MLO view with possible associated focal asymmetry. No associatedarch itectural distortion. The left breast is unremarkable. IMPRESSION: There is a group of microcalcifications in the lower right breast seen onthe cc and MLO view with possible associated focal asymmetry. Recommenddiagnostic mammogram of the right breast with spot compression CC and MLO tomographicviews as well as CC and true lateral magnification views. BI-RADS: Category 0: Incomplete - Need Additional Imaging Evaluation Dictating Physician: PRATIK JESUS MD Electronically Signed by: PRATIK JESUS MD Dic Date/Time: 10/01/23812 Sign date/Time: 10/01/23819 Yajaira Vasquez MD IMG BI PROCEDURES Final Result from Last 3 Months or Most Recently Relevant to Health Maintenance Insurance [employer] [place] [id number] Care Teams Insolvency Practitioner Relationship Specialty Start Date End Date Tequila Haq MD PCP - General Internal Medicine 01/11/19
--- OUTSIDE RECORDS SUMMARY | 2025-06-15 08:25 | XMS_ITS | Clinical Summary ---
Author Organization [facility] Address [address] [place] [address] Care Team Providers Care Skid Strapper Name Role Phone Leatha Ramirez PA-C Primary Care Provider [phone] Source Comments PLEASE NOTE, if this patient [...] Date Diagnosed Date Hematuria 02/18/2015 Overview (02/18/2015): [facility] uro Neg cystoscopy 2012 Fu january 2015, recurrent hematuria. 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
--- OUTSIDE RECORDS SUMMARY | 2025-06-15 08:25 | XMS_ITS | Clinical Summary ---
Author Organization [facility] Address [address] [place] [address] Care Team Providers Care Investment Strategist Name Role Phone Tequila Haq MD Primary Care Provider [phone] Allergies Active Allergy Reactions Criticality Noted Date [...] Renal mass 02/19/2017 Hematuria 02/18/2015 Overview: Overview: [facility] uro Neg cystoscopy 2012January 2015, recurrent hematuria. 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 Last pap smear December 2013, results pending ([place] [facility] [place] Social History Tobacco Use [...] 2 - PPSV23 or PCV20) 09/08/2017 07/14/2017 Fall Risk Assessment 2025 Osteoporosis Screening (DEXA Scan) 2025 COVID-19 Vaccine (3 - 2024-2 6 season) 2025 10/12/2020, 09/21/2020 Influenza Vaccine (#1) 2025 05/25/2019 RSV Adult > 60+ Yrs or (1 - 1-dose 75+ series) 2035 Hepatitis B Vaccines Aged Out No long er eligible based on patient's age to complete this topic RSV Ped < 20 months Aged Out No longe r eligible based on patient's age to complete this topic Care Teams Investment Strategist Relationship Specialty Start Date End Date Tequila Haq MD [address] [facility] [address] [place] [address] PCP - General Internal Medicine 05/27/19
--- OUTSIDE RECORDS SUMMARY | 2025-06-15 08:25 | XMS_ITS | Patient Health Record ---
[facility] Address [address] [place] [address] Care Team Providers Care Business Development Associate Name Role Phone Eun DILL, [facility] Primary Care Provider Unavailab Benito Reyes Unavailable [phone] Allergies Allergen (clinical drug ingredient) Drug/Non Drug [...] W/U Status Risk Notes Problem Achilles bursitis (644408620) Achilles tendinitis, left leg (M76.62) Active confirmed Problem Peroneal tendinitis (37437188) Peroneal tendinitis, left leg (M76.72) Active confirmed Plan Of Treatment Pending Test Test Name Order Date X ray : Ankle, left 3V 07/03/2022 [id number] TENDON SHEATH/LIGAMENT 1 Insurance Providers Payer Name Payer Address Payer Phone Subscriber Number Group Number Insured Name Patient Relationship to Insured Coverage Start Date Coverage End Date [facility] [address] [facility] [place] [address] [id number] Smitha Willis Self - patient is the insured Medical (General) History Medical History History ICD Code Anxiety Arthritis asthma Back,Hip,and Knee pain Depression Chicken pox cyst, kidney Surgical History Surgery Date(Month/Year)
--- OUTSIDE RECORDS SUMMARY | 2025-06-15 08:26 | XMS_ITS ---
Author Name [facility] Organization Unknown Care Team Organization Name Specialty Phone Email Start Date End Da te [facility] Primary Care 07/22/2022 05/02/20 24
--- OUTSIDE RECORDS SUMMARY | 2025-06-15 08:26 | XMS_ITS | Data Portability ---
Author Organization [place] [facility], Allergy Address [address] [address] Care Team Providers Care Pumper Gager Apprentice Name Role Phone SAMANTHA ESCALANTE Primary Care Provider Assessment Encounter Date Assessment Date Assessment LastModified by Organization Details LastModified Time 06/06/2025 06/06/2025 65 year old female, with a history of allergic rhinitis and well-controlled asthma, presents for evaluation of chronic sinusitis. Anterior rhinoscopy and nasal endoscopy are notable for a right septal deviation with 1+ inferior turbinate hypertrophy on the right and 2+ on the left. There are also polyps arising from the middle meatus bilaterally which are likely contributing to her anosmia. Recommend a short course of oral prednisone, in addition to starting budesonide irrigation, to help reduce nasal inflammation and potentially shrink the polyps. Will additionally plan to obtain skin prick testing, as well as blood work for inflammatory markers and a dedicated CT scan of the sinuses to further assess for underlying sinus disease. Follow up for review of results. All questions were answered. Patient also seen and evaluated in conjunction with Dr. Molina who also agrees with this plan. [email or web address] Not available 06/06/2025 13:24:39 Plan of Treatment Reminders Order Date Submit Date Provider Last Modified By Organization Details Last Modified Time Details Appointments None recorded. Lab ige, total, serum 2024 025 JULY [facility] (Centralized Electronic Ordering - All Locations), Patient Can Go To The Location Of Their Choice, 06:22:16 CBC w/ auto diff 2024 025 JULY [facility] (Centralized Electronic Ordering - All Locations), Patient Can Go To The Location Of Their Choice, 06:22:15 Referral None recorded. Procedures allergy testing, skin prick (PROC) 2024 025 [email or web address] Not available 11:38:43 intraderma l allergy skin testing (PROC) 2024 025 [email or web address] Not available 11:38:43 pulmonary function test procedure (PROC) 2024 025 [email or web address] Not available 11:38:43 pulse oximetry (PROC) 2024 025 [email or web address] Not available 11:38:43 Surgeries None recorded. Imaging CT, sinuses, w/o contrast 2024 [email or web address] [facility], [address] [address], [place], [address], 11:20:16 Medication Orders prednisone 10 mg tablet 2024 025 [facility] #[id number], [address] [place], [address], 13:01:19 budesonide 0.5 mg/2 mL suspension for nebulizati on 2024 025 [facility] #[id number], [address] [place], [address], 13:21:37 Patient TargetsNo targets recorded. Patient InstructionsNo instructions recorded. Reason for Referral None Reported. Results Created Date Observation Date Name Description Value Unit Range Abnormal Flag Note LastModifiedBy Organization Detail LastModifiedTime 06/06/2006/06/2025 CBC WITH DIFFE RENTI AL/PL ATELE T WBC 5.8 x10e3 /uL 3.4-10 .8 normal Not Available [facility] ([facility]) [address] [facility], [place], [address], 06/08/2025 06:22:13 06/06/2006/06/2025 CBC WITH DIFFE RENTI AL/PL ATELE T RBC 4.56 x10e6 /uL 3.77-5 .28 normal Not Available [facility] ([facility]) [address] [place], [address], 06/08/2025 06:22:13 06/06/2006/06/2025 CBC WITH DIFFE RENTI AL/PL ATELE T hemoglobin 14.0 g/dL 11.1-1 5.9 normal Not Available [facility] ([facility]) [address] [place], [address], 06/08/2025 06:22:13 06/06/2006/06/2025 CBC WITH DIFFE RENTI AL/PL ATELE T hematocrit 43.7 % 34.0-4 6.6 normal Not Available [facility] ([facility]) [address] [place], [address], 06/08/2025 06:22:13 06/06/2006/06/2025 CBC WITH DIFFE RENTI AL/PL ATELE T MCV 96 fL 79-97 normal Not Available [facility] ([facility]) [address] [place], [address], 06/08/2025 06:22:13 06/06/2006/06/2025 CBC WITH DIFFE RENTI AL/PL ATELE T MCH 30.7 pg 26.6-3 3.0 normal Not Available [facility] ([facility]) [address] [place], [address], 06/08/2025 06:22:13 06/06/2006/06/2025 CBC WITH DIFFE RENTI AL/PL ATELE T MCHC 32.0 g/dL 31.5-3 5.7 normal Not Available [facility] ([facility]) [address] [place], [address], 06/08/2025 06:22:13 06/06/2006/06/2025 CBC WITH DIFFE RENTI AL/PL ATELE T RDW 13.0 % 11.7-1 5.4 Not Available [facility] ([facility]) [address] [facility], [place], [address], 06/08/2025 06:22:13 06/06/2006/06/2025 CBC WITH DIFFE RENTI AL/PL ATELE T platelets 313 x10e3 /uL 150-45 0 normal Not Available [facility] ([facility]) [address] [facility], [place], [address], 06/08/2025 06:22:13 06/06/2006/06/2025 CBC WITH DIFFE RENTI AL/PL ATELE T neutrophils 54 % not estab. normal Not Available [facility] ([facility]) [address] [facility], [place], [address], 06/08/2025 06:22:13 06/06/2006/06/2025 CBC WITH DIFFE RENTI AL/PL ATELE T lymphs 30 % not estab. normal Not Available [facility] ([facility]) [address] [facility], [place], [address], 06/08/2025 06:22:13 06/06/2006/06/2025 CBC WITH DIFFE RENTI AL/PL ATELE T monocytes 11 % not estab. normal Not Available [facility] ([facility]) [address] [facility], [place], [address], 06/08/2025 06:22:13 06/06/2006/06/2025 CBC WITH DIFFE RENTI AL/PL ATELE T eos 4 % not estab. normal Not Available [facility] ([facility]) [address] [facility], [place], [address], 06/08/2025 06:22:13 06/06/2006/06/2025 CBC WITH DIFFE RENTI AL/PL ATELE T basos 1 % not estab. normal Not Available [facility] ([facility]) [address] [facility], [place], [address], 06/08/2025 06:22:13 06/06/2006/06/2025 CBC WITH DIFFE RENTI AL/PL ATELE T immature cells WARP DYEING TENDER Not Available [facility] ([facility]) [address] [facility], [place], [address], 06/08/2025 06:22:13 06/06/2006/06/2025 CBC WITH DIFFE RENTI AL/PL ATELE T neutrophils (absolute) 3.2 x10e3 /uL 1.4-7. 0 normal Not Available [facility] ([facility]) [address] [facility], [place], [address], 06/08/2025 06:22:13 06/06/2006/06/2025 CBC WITH DIFFE RENTI AL/PL ATELE T lymphs (absolute) 1.7 x10e3 /uL 0.7-3. 1 normal Not Available [facility] ([facility]) [address] [place], [address], 06/08/2025 06:22:13 06/06/2006/06/2025 CBC WITH DIFFE RENTI AL/PL ATELE T monocytes(ab solute) 0.6 x10e3 /uL 0.1-0. 9 normal Not Available [facility] ([facility]) [address] [place], [address], 06/08/2025 06:22:13 06/06/2006/06/2025 CBC WITH DIFFE RENTI AL/PL ATELE T eos (absolute) 0.2 x10e3 /uL 0.0-0. 4 normal Not Available [facility] ([facility]) [address] [place], [address], 06/08/2025 06:22:13 06/06/2006/06/2025 CBC WITH DIFFE RENTI AL/PL ATELE T baso (absolute) 0.1 x10e3 /uL 0.0-0. 2 normal Not Available [facility] ([facility]) [address] [facility], [place], [address], 06/08/2025 06:22:13 06/06/2006/06/2025 CBC WITH DIFFE RENTI AL/PL ATELE T immature granulocytes 0 % not estab. Not Available [facility] ([facility]) [address] [facility], [place], [address], 06/08/2025 06:22:13 06/06/2006/06/2025 CBC WITH DIFFE RENTI AL/PL ATELE T immature grans (abs) 0.0 x10e3 /uL 0.0-0. 1 Not Available [facility] ([facility]) [address] [facility], [place], [address], 06/08/2025 06:22:13 06/06/2006/06/2025 CBC WITH DIFFE RENTI AL/PL ATELE T NRBC WARP DYEING TENDER Not Available [facility] ([facility]) [address] [facility], [place], [address], 06/08/2025 06:22:13 06/06/2006/06/2025 CBC WITH DIFFE RENTI AL/PL ATELE T hematology comments: WARP DYEING TENDER Not Available [facility] ([facility]) [address] [facility], [place], [address], 06/08/2025 06:22:13 06/06/2006/08/2025 IMMUN OGLOB ULIN E, TOTAL immunoglobul in E, total 7 IU/mL 6-495 Not Available [facility] ([facility]) [address] [place], [address], 06/08/2025 06:22:16 Result Notes None recorded. Problems Name Problem SNOMED Code Status Onset Date Resolution Date Notes Provider Name and Address Organization Details Recorded Time Polyp of nasal cavity 476294902 Active 2015 Polyp of nasal cavity; Note: Date Diagnosed : 11/20/2015 10:16 AM (J33.0) YANNICK SANDERS [address], [place], [address], [facility] 09:26:48 Dizzines s and giddines s 567484015 Completed 201506/06/2025 Dizziness and giddiness ; Note: Date Diagnosed : 12/21/2015 2:57 PM (R42) YANNICK SANDERS [address], [place], [address], [facility] 12:55:08 Chronic sinusiti s 52770960 Completed 202406/06/2025 YANNICK SANDERS [address], [place], [address], [facility] 12:55:10 Allergic rhinitis 94624008 Active 2024 YANNICK SANDERS [address], [place], [address], [facility] 13:14:49 Deviated nasal septum 773027489 Active 2024 YANNICK SANDERS [address], [place], [address], [facility] 13:14:57 Hypertro phy of nasal turbinat es 96296407 Active 2024 YANNICK SANDERS [address], [place], [address], [facility] 13:15:23 Mild intermit tent asthma 158975937 Active 2024 YANNICK SANDERS [address], [place], [address], [facility] 13:15:35 Loss of sense of smell 81395038 Active 2024 YANNICK SANDERS [address] [facility], [place], [address], [facility] 13:15:55 Problem Notes None recorded. Procedures Surgical History Date Name Laterality Status Provider Name and Address Organization Details Recorded Time 06/06/2025 NasalEndos copy_DP completed YANNICK SANDERS [address] [facility] [address], [place], [address], [facility] 06/06/2025 12:54:15 Imaging Results None recorded. Procedure Notes None recorded. Medical Equipment None Reported. Allergies No known drug allergies Medications Name Sig Start Date Stop Date Status Note LastModified by Organization Details LastModified Time prednison e 10 mg tablet Take 4 tablets once a day in the morning for 3 days, then take 2 tablets once a day in the morning for 3 days, then take 1 tablet once a day in the morning for 3 days 2024 active Not Available Not Available Not Avai lable doxycycli ne hyclate 100 mg capsule TAKE 1 CAPSULE BY MOUTH TWICE A DAY FOR 5 DAYS active Not Available Not Available No t Available azithromy mary 250 mg tablet TAKE 2 TABLETS BY MOUTH TODAY, THEN TAKE 1 TABLET DAILY FOR 4 DAYS DIRECTED active Not Available Not Available No t Available medroxypr ogesteron e 2.5 mg tablet TAKE 1 TABLET BY MOUTH 1 TIME EACH DAY. active Not Available Not Available No t Available prednison e 20 mg tablet TAKE 3 TABLETS BY MOUTH EVERY DAY 06/06 completed Not Available Not Available Not Available benzonata te 100 mg capsule TAKE 1 CAPSULE BY MOUTH TWICE A DAY FOR 5 DAYS active Not Available Not Available No t Available mirtazapi ne 30 mg tablet TAKE 1 TABLET BY MOUTH EVERYDAY AT BEDTIME active Not Available Not Available No t Available budesonid e 0.5 mg/2 mL suspensio n for nebulizat ion Mix 1 vial in 8 ounces of distille d bottled water with a buffered saline packet. Irrigate nose twice daily. Use half a bottle on each side 2024 active Not Available Not Available Not Avai lable monteluka st 10 mg tablet TAKE 1 TABLET BY MOUTH AT BEDTIME FOR 30 DAYS active Not Available Not Available No t Available hydroxyzi ne HCl 25 mg tablet TAKE 1 TABLET ORALLY BEDTIME TAKE 20 MINUTES BEFORE BEDTIME active Not Available Not Available No t Available mirtazapi ne 15 mg tablet TAKE 1 TABLET ORALLY AT BEDTIME FOR 90 DAYS. active Not Available Not Available No t Available estradiol 0.5 mg tablet TAKE 1 TABLET BY MOUTH 1 TIME EACH DAY. - INS NOT PAYING, MEMBER MUST CALL [phone] active Not Available Not Available No t Available bupropion HCl XL 300 mg 24 hr tablet, extended release TAKE 1 TABLET BY MOUTH EVERY MORNING active Not Available Not Available No t Available bupropion HCl XL 150 mg 24 hr tablet, extended release TAKE 1 TABLET BY MOUTH EVERY MORNING active Not Available Not Available No t Available duloxetin e 30 mg capsule,d elayed release TAKE 1 CAPSULE BY MOUTH EVERY DAY AT DINNER TIME active Not Available Not Available No t Available duloxetin e 60 mg capsule,d elayed release TAKE 1 CAPSULE BY MOUTH EVERY DAY active Not Available Not Available No t Available diclofena c 1 % topical gel PLEASE SEE ATTACHED FOR DETAILED DIRECTIO NS active Not Available Not Available No t Available Moon Brownquifeoma Nighttime Relief 6.25 mg-15 mg-325 mg/15 mL oral liquid 2015 active Medicati on ID: [id number] B rand Name: Moon Cotter Nighttim e Relief S end Method: E-Prescr ibed Sub s Allowed: subs OK Medic ationGen ericName : Moon Brownquil Nighttim e Relief Not Available Not Available Not Available Anoro Ellipta 62.5 mcg-25 mcg/actua tion powder for inhalatio n TAKE 1 PUFF BY MOUTH EVERY DAY active Not Available Not Available No t Available Vitals Date Recorded Body height Body mass index (BMI) Body weight Provider Name and Address Organization Details Last Updated DateTime 06/06/2025 160.02 cm 34.5 kg/m2 65833.51 g Bernadine Wellington [place] [facility] 06/06/2025 09:02:05 Social History None recorded. Functional Status Question Answer Note LastModified by Organization D etails LastModified Time What is your level of alcohol consumption? None [email or web address] Information not available 06/06/2025 Mental Status None recorded. Family History Nothing Reported. Medical History Condition Response Allergies/Hayfever N Heart Problems N Anxiety Y Tonsil Infections N Emphysema N Migraines Y Thyroid Problems N Glaucoma N Depression Y COPD N Developmental Delay N Nasal or Sinus Problems N Anemia N Immune System Disorder N Anesthesia Complications N Heart Attack ([place]) N Other Skin Condition N Diabetes N Rhinitis N Bleeding Disorder N Food Allergy N Arthritis Y Hearing Loss N Hyperlipidemia N Cancer N Stroke N Dementia N Nasal polyps N Asthma Y High Cholesterol N Sleep Disorder N GERD/Reflux N Liver Disease N Headaches Y Fibromyalgia N Hypertension N Speech Delay N Kidney Disease Y Gynecological HistoryNo gynecological history recorded. Obstetrics History GPAL:G 0 P 0 0 0 0 Past Encounters Encounter ID Performer Location Encounter Start Date Encounter Closed Date Diagnosis/Indication Diagnosis SNOMED-CT Code Diagnosis ICD10 Code Diagnosis IMO Codes Diagnosis Note [id number] NORMA MOLINA MD [facility] [address] [address] 06/06/2025 08:47:45 06/06/2025 09:32:36 Polyp of nasal cavity 350802270 J33.0 023685 Allergic rhinitis 016087 04 J30.89 7375530 Deviated nasal septum 12 7547919 J34.2 856417 Hypertroph y of nasal turbinates 38972807 J34.3 3456976 Mild inter mittent asthma 800003025 J45.20 8297361 Loss of se nse of smell 92832518 R43.0 89073 Health Concerns Section Related Observation LastModified by Organization Detai ls LastModified Time None Recorded Concern Status LastModified by Organization Details LastModified Time None Recorded Advance Directives Directive None Recorded Payers Insurance Date Sequence Insurance Name Policy Number Policy Danielson Covered Member ID Danielson Member ID Guarantor Name 06/06/2025 1 [employer] Smitha Colon [id number] Smitha Colon 06/06/2025 1 [facility] [id number] Smitha Colon [id number] Smitah Colon Notes Date Note Type Note Provider Name and Address Organization Details Recorded Time 06/06/2025 text/html ROS as noted in the HPI 65 year old female presents for evaluation of chronic sinusitis. Patient reports a longstanding history of anosmia for the past 20-30 years. She has periodic episodes where her sense of smell will return for a few seconds. Denies URI symptoms at the time of onset. Patient has known seasonal allergies, but was never formally tested for them. Her symptoms primarily consist of epiphora, nasal congestion, rhinorrhea, occasional postnasal drip, and bilateral cheek pressure. Not currently taking any antihistamines or using nasal sprays. She trialed Flonase and Claritin for months in the past with no improvement. Patient also has daily headaches which she treats with Tylenol. Asthma is well-controlled with as-needed ProAir. No nasal trauma and surgery. NORMA MOLINA MD [address] [place] [address], [address], [facility] 06/06/2025 17:08:11 OBGyn Episode No OBEpisode recorded.
[2025-06-15 09:32] LABS: Alanine Aminotransferase 36 U/L (0-31); Albumin Level 4.4 g/dL (3.5-5.0); Alkaline Phosphatase 67 U/L (39-117); Anion Gap 14 (12-20); Aspartate Amino Transferase 24 U/L (5-31); Blood Urea Nitrogen 17 mg/dL (9-16); Calcium 9.6 mg/dL (8.4-10.2); Carbon Dioxide 27 mmol/L (22-29); Chloride 104 mmol/L (96-108); Cholesterol 191 mg/dL (<200); Estimated Glomerular Filt Rate > 60; HDL Cholesterol 63 mg/dL (>40); Potassium 4.0 mmol/L (3.3-5.1); Sodium 141 mmol/L (135-145); Total Protein 7.3 g/dL (6.5-8.0); Triglycerides 59 mg/dL (<150)
== END 2025-06-15 08:14 | disposition home or self-care (01) ==
LOC: HO.LAB 08:13
PROVIDERS: Visit Provider Internal Medicine
DX: J44.89 Other specified chronic obstructive pulmonary disease (principal); E55.9 Vitamin D deficiency, unspecified; E78.5 Hyperlipidemia, unspecified
CPT/HCPCS: 36415; 80053; 80061; 82306

== ENCOUNTER 2025-06-29 15:35 | Outpatient (AMB) | payer OTHER, SELFPAY ==
--- NOTE | 2025-06-29 15:40 | A.OFFPC_ITS ---
Vital Signs 06/29/25 15:41 Height 5 ft 3 in Weight 194 lb 4 oz BMI 34.4 BP 132/68 Blood Pressure Location Lt brachial Position Sitting Pulse 77 Pulse Source Pulse Oximeter Temp 97.3 F Temp Source Temporal Artery Scan Pulse Oximetry (%) 96 Oxygen Delivery Method Room Air Intake Visit Reasons: annual exam Intake Note: Patient is here today for a physical. Geochemistry Teacher Required: No Early Childhood Specialist: Not Required per policy Accompanied by: Self / Same As Patient Allergies No Known Allergies Allergy (Verified 06/29/25 15:41) Medication List - Last Reconciled 06/29/25 by Yajaira Vasquez MD albuterol sulfate 90 mcg/actuation 1 inh inhalation QID PRN cholecalciferol (vitamin D3) 25 mcg PO DAILY diclofenac sodium 1% (Arthritis Pain (diclofenac)) 2 grams topical QID 30 days estradiol 0.5 mg PO DAILY medroxyprogesterone 2.5 mg PO DAILY mirtazapine (Remeron) 30 mg PO BEDTIME montelukast 10 mg PO DAILY umeclidinium-vilanterol 62.5-25 mcg/actuation (Anoro Ellipta) 1 inh inhalation DAILY 60 days Tobacco use date assessed: 06/29/25 Fall risk assessment: 2 + Falls in past year Last assessed Fall Risk: 06/29/25 Dental Screening Dental Screen Date: 11/24/24 HPI HPI Comments History of Present Illness Details The patient is a 65-year-old female presenting with a physical examination and chronic pain issues. The patient has a history of osteopenia, diagnosed following a bone density test conducted last week at [facility]. She has been advised to take calcium with vitamin D supplements to manage this condition. The patient has asthma with Chronic Obstructive Pulmonary Disease (COPD) and uses Anoro daily for management. She does not currently have ProAir, which was previously used for asthma management. The patient reports neuropathy in her legs, characterized by pain and a burning sensation that disrupts her sleep. She describes the pain as severe and persistent, affecting her quality of life. The patient also mentions fibromyalgia, which involves multiple joint pain and is associated with her neuropathy symptoms. She has undergone an MRI as referred by her process specialist, but the results were not discussed in detail during this visit. Preventative care measures include a pneumonia vaccination received in March and a pending tetanus vaccination to be administered during this visit. [facility] Medical History (Updated 06/29/25 @ 16:08 by Yajaira Vasquez MD) Major depressive disorder, single episode, moderate Insomnia Asthma with COPD Depression Renal cyst, acquired, right Hypertension Lumbar back pain Surgical History No pertinent past surgical history Family History Mother Diabetes Father No problems noted. Social History Housing: Apartment Alcohol intake: never Patient Tobacco Use Status: Former Tobacco user (14 years ago) Tobacco use type: Cigarette e-Cigarette/Vaping Use: Never Used Second Hand Smoke Exposure: Yes service: No Current occupational status: employed Current occupation: [employer] V[employer] TE[employer] Current occupational exposures/hazards: No Cognitive needs: No Hearing needs: No Vision needs: Yes (glasses) Questionnaire Thrive Questionnaire Date Thrive assessed: 03/21/25 I am a: Patient What is your living situation today?: I choose not to answer this question Within the past 12 months, did the food you bought not last and you didn't have the money to get more?: Sometimes True Within the past 12 months, did you worry whether your food would run out before you got money to buy more?: Sometimes True Do you have trouble paying for medicines?: Yes Do you have trouble getting transportation to medical appointments?: No Do you have trouble paying your heating and electricity bill?: No Do you have trouble taking care of your child, family member or friend?: No Do you have trouble with day-to-day activities such as bathing, preparing meals, shopping, managing finances, etc.?: No Are you currently unemployed and looking for a job?: No Are you interested in more education?: No Currently or been in a relationship where the following occur: I choose not to answer THRIVE Score: 2 ARTI-7 AMB Questionnaire ARTI-7 Date ARTI - 7 assessed: 09/15/24 Source: Developed by Drs. Mikel Razo, Leigah Alexis, Иван Denson and colleagues, with an educational freddie from [employer]. Review of Systems Const All systems reviewed & are unremarkable except as noted in HPI and below Card Denies chest pain at rest, Denies chest pain with activity, Denies edema, Denies irregular heart rhythm, Denies claudication, Denies dyspnea, Denies dyspnea on exertion, Denies orthopnea, Denies paroxysmal nocturnal dyspnea and Denies slow heart rate Resp Denies cough, Denies dyspnea and Denies dyspnea on exertion Physical exam (Primary Care) Vital Signs: Last Vital Signs Temp 97.3 F 06/29/25 15:41 Pulse 77 06/29/25 15:41 BP 132/68 06/29/25 15:41 Pulse Ox 96 06/29/25 15:41 Oxygen Delivery Method Room Air 06/29/25 15:41 BMI result Body Mass Index 34.4 BMI Assessment/Plan discussion: High BMI High, discussed plan: lifestyle, weight reduction, dietary and physical activity Tobacco/Smoking Status: Tobacco use Status Tobacco use date assessed 06/29/25 06/29/25 15:46 Patient Tobacco Use Status Former Tobacco user (14 06/29/25 15:46 years ago) Tobacco use type Cigarette 06/29/25 15:46 e-Cigarette/Vaping Use Never Used 06/29/25 15:46 Thrive Assessment: Date of Thrive Assessment Date Thrive assessed 03/21/25 06/29/25 15:46 Currently or been in a relationship where the following occur: I choose not to answer [facility] Head: Yes normal to inspection, Yes normocephalic and Yes atraumatic Ears: external ears normal Eyes General: appearance normal, both eyes and all related structures Eyelids: Yes eyelids normal Conjunctivae: conjunctivae normal Neck Neck: Yes normal visual inspection and Yes supple Resp Effort & Inspection: normal respiratory effort Auscultation: clear to auscultation bilaterally Cardio Jugular venous distension: no JVD Rate: regular rate Rhythm: regular rhythm Heart sounds: S1 normal heart sound present and S2 normal heart sound present GI Inspection: Yes normal to inspection Palpation (GI): Soft to palpation and nontender Auscultation: normal bowel sounds Skin General skin exam: no rashes or lesions noted Neuro General: no focal motor deficits Extrem General: Yes full ROM Psych Appearance: grossly normal Immunizations Boostrix Tdap 2.5 Lf unit-8 mcg-5 Lf/0.5 mL intramuscular syringe Performing Provider: Yajaira Vasquez MD Performing [facility] [place] [facility]: SVETA Hogan on 06/29/25 16:15 Dose Route Admin Location Dispensed Lot Number Expiration Date NDC Poker Supervisor 0.5 mL IM Left Deltoid 0.5 mL [id number] 07/07/27 [id number] [employer] Total Dispensed Waste 0.5 mL 0 % VIS Given Date VIS Provided VIS Publication Date 06/29/25 Single Vaccine 21 Eligibility Eligibility Date Funding Source Not [facility] Eligible 06/29/25 Private Coding Level of Care Code Est Pt Level 3 (91582) Est Pt Prev Care >65y(97633) Diagnoses Physical exam Z00.00 Bilateral leg paresthesia R20.2 Mild recurrent major depression F33.0 Time Spent (min) 33 Assessment & Plan Assessment & Plan (1) Physical exam: Code(s): Z00.00 - Encounter for general adult medical examination without abnormal fi ndings Category: Medical (2) Bilateral leg paresthesia: Code(s): R20.2 - Paresthesia of skin Category: Medical (3) Mild recurrent major depression: Code(s): F33.0 - Major depressive disorder, recurrent, mild Category: Medical Plan Plan 1. Encounter for general adult medical examination without abnormal findings Z00.00 The patient received a pneumonia vaccination in March and is scheduled to receive a tetanus vaccination during this visit. 2. Other specified disorders of bone density and structure, unspecified site M85.80 The patient has been diagnosed with osteopenia following a recent bone density test. She has been advised to take calcium with vitamin D supplements to manage this condition. 3. Polyneuropathy, unspecified G62.9 The patient reports neuropathy in her legs, characterized by pain and a burning sensation that disrupts her sleep. A nerve conduction study is planned to further evaluate this condition. Orders: Orders NE electromyogram (EMG) Today R20.2 - Paresthesia of skin TDaP Immunization Today Z23 - Encounter for immunization NE nerve conduction velocity Today R20.2 - Paresthesia of skin
[2025-06-29 15:41] VITALS: BP 132/68; PULSE 77; TEMP 36.3; O2SAT 96; BMI 34.4
--- OUTSIDE RECORDS SUMMARY | 2025-06-29 19:22 | XMS_ITS | Patient Health Record ---
[facility] Address [address] [place] [address] Care Team Providers Care Belt Operator Name Role Phone Eun DILL, [facility] Primary Care Provider Unavailab Benito Reyes Unavailable [phone] Allergies Allergen (clinical drug ingredient) Drug/Non Drug [...] W/U Status Risk Notes Problem Achilles bursitis (152312262) Achilles tendinitis, left leg (M76.62) Active confirmed Problem Peroneal tendinitis (76367537) Peroneal tendinitis, left leg (M76.72) Active confirmed Plan Of Treatment Pending Test Test Name Order Date X ray : Ankle, left 3V 07/03/2022 11021,[id number] TENDON SHEATH/LIGAMENT 1 Insurance Providers Payer Name Payer Address Payer Phone Subscriber Number Group Number Insured Name Patient Relationship to Insured Coverage Start Date Coverage End Date [facility] [address] [facility] [place] [address] [phone] [id number] Smitha Willis Self - patient is the insured Medical (General) History Medical History History ICD Code Anxiety Arthritis asthma Back,Hip,and Knee pain Depression Chicken pox cyst, kidney Surgical History Surgery Date(Month/Year)
--- OUTSIDE RECORDS SUMMARY | 2025-06-29 19:22 | XMS_ITS | Clinical Summary ---
Author Organization [facility] Address [address] [place] [address] Care Team Providers Care Dental Scheduler Name Role Phone Tequila Haq MD Primary Care Provider [phone] Allergies Active Allergy Reactions Criticality Noted Date [...] Renal mass 02/19/2017 Hematuria 02/18/2015 Overview: Overview: [facility] uro Neg cystoscopy 2012January 2015, recurrent hematuria. Initiated work up again Breast lump in female 02/09/2014 Overview: Overview: Biopsy done january 2014 at [facility] Negative per pt Needs mammo in 1 year Anxiety 01/21/2014 Asthma 01/21/2014 Depression 01/21/2014 H/O colonoscopy 01/21/2014 Overview: Overview: Normal, 1 polyp removed HTN (hypertension) 01/21/2014 BETSY (obstructive sleep apnea) 01/21/2014 ASCUS on Pap smear 09/23/2011 Overview: Overview: Not clear if has seen Accounting Representative since then Last pap smear December 2013, results pending (at [facility] pcp) Social History Tobacco Use Types Packs/Day [...] age to complete this topic Care Teams Dental Scheduler Relationship Specialty Start Date End Date Tequila Haq MD [address] [facility] [address] [place] [address] PCP - General Internal Medicine 05/27/19
--- OUTSIDE RECORDS SUMMARY | 2025-06-29 19:23 | XMS_ITS | Data Portability ---
Author Organization [place] [facility], All[facility] Address [address] [address] Care Team Providers Care Awning Installer Name Role Phone SAMANTHA ESCALANTE Primary Care [...] recorded. Imaging CT, sinuses, w/o contrast 2024 [email or web address] [facility], [address] [address], [place], [address], 11:20:16 Medication Orders prednisone 10 mg tablet 2024 025 [facility][id number], [address] [place], [address], 13:01:19 budesonide 0.5 mg/2 mL suspension for nebulizati on 2024 025 [facility][id number], [address] [place], [address], 13:21:37 Patient TargetsNo targets recorded. Patient InstructionsNo instructions recorded. Reason for Referral None Reported. Results Created Date Observation Date Name Description Value Unit Range Abnormal Flag Note LastModifiedBy Organization Detail LastModifiedTime 06/06/2006/06/2025 CBC WITH DIFFE RENTI AL/PL ATELE T WBC 5.8 x10e3 /uL 3.4-10 .8 normal Not Available [facility] ([facility]) [address] [facility], [place], [address], 06/08/2025 06:22:13 06/06/2006/06/2025 CBC WITH DIFFE RENTI AL/PL ATELE T RBC 4.56 x10e6 /uL 3.77-5 .28 normal Not Available [facility] ([facility]) [address] [place], [address], 06/08/2025 06:22:13 06/06/2006/06/2025 CBC WITH DIFFE RENTI AL/PL ATELE T hemoglobin 14.0 g/dL 11.1-1 5.9 normal Not Available [facility] ([facility]) [address] [place], [address], 06/08/2025 06:22:13 06/06/2006/06/2025 CBC WITH DIFFE RENTI AL/PL ATELE T hematocrit 43.7 % 34.0-4 6.6 normal Not Available [facility] ([facility]) [address] [place], [address], 06/08/2025 06:22:13 06/06/2006/06/2025 CBC WITH DIFFE RENTI AL/PL ATELE T MCV 96 fL 79-97 normal Not Available [facility] ([facility]) [address] [place], [address], 06/08/2025 06:22:13 06/06/2006/06/2025 CBC WITH DIFFE RENTI AL/PL ATELE T MCH 30.7 pg 26.6-3 3.0 normal Not Available [facility] ([facility]) [address] [place], [address], 06/08/2025 06:22:13 06/06/2006/06/2025 CBC WITH DIFFE RENTI AL/PL ATELE T MCHC 32.0 g/dL 31.5-3 5.7 normal Not Available [facility] ([facility]) [address] [place], [address], 06/08/2025 06:22:13 06/06/2006/06/2025 CBC WITH DIFFE RENTI AL/PL ATELE T RDW 13.0 % 11.7-1 5.4 Not Available [facility] ([facility]) [address] [facility], [place], [address], 06/08/2025 06:22:13 06/06/2006/06/2025 CBC WITH DIFFE RENTI AL/PL ATELE T platelets 313 x10e3 /uL 150-45 0 normal Not Available [facility] ([facility]) [address] [facility], [place], [address], 06/08/2025 06:22:13 06/06/2006/06/2025 CBC WITH DIFFE RENTI AL/PL ATELE T neutrophils 54 % not estab. normal Not Available [facility] ([facility]) [address] [facility], [place], [address], 06/08/2025 06:22:13 06/06/2006/06/2025 CBC WITH DIFFE RENTI AL/PL ATELE T lymphs 30 % not estab. normal Not Available [facility] ([facility]) [address] [facility], [place], [address], 06/08/2025 06:22:13 06/06/2006/06/2025 CBC WITH DIFFE RENTI AL/PL ATELE T monocytes 11 % not estab. normal Not Available [facility] ([facility]) [address] [facility], [place], [address], 06/08/2025 06:22:13 06/06/2006/06/2025 CBC WITH DIFFE RENTI AL/PL ATELE T eos 4 % not estab. normal Not Available [facility] ([facility]) [address] [facility], [place], [address], 06/08/2025 06:22:13 06/06/2006/06/2025 CBC WITH DIFFE RENTI AL/PL ATELE T basos 1 % not estab. normal Not Available [facility] ([facility]) [address] [facility], [place], [address], 06/08/2025 06:22:13 06/06/2006/06/2025 CBC WITH DIFFE RENTI AL/PL ATELE T immature cells EMPLOYEE RELATION MANAGER Not Available [facility] ([facility]) [address] [facility], [place], [address], 06/08/2025 06:22:13 06/06/2006/06/2025 CBC WITH DIFFE RENTI AL/PL ATELE T neutrophils (absolute) 3.2 x10e3 /uL 1.4-7. 0 normal Not Available [facility] ([facility]) [address] [facility], [place], [address], 06/08/2025 06:22:13 06/06/2006/06/2025 CBC WITH DIFFE RENTI AL/PL ATELE T lymphs (absolute) 1.7 x10e3 /uL 0.7-3. 1 normal Not Available [facility] ([facility]) [address] [place], [address], 06/08/2025 06:22:13 06/06/2006/06/2025 CBC WITH DIFFE RENTI AL/PL ATELE T monocytes(ab solute) 0.6 x10e3 /uL 0.1-0. 9 normal Not Available [facility] ([facility]) [address] [place], [address], 06/08/2025 06:22:13 06/06/2006/06/2025 CBC WITH DIFFE RENTI AL/PL ATELE T eos (absolute) 0.2 x10e3 /uL 0.0-0. 4 normal Not Available [facility] ([facility]) [address] [place], [address], 06/08/2025 06:22:13 06/06/2006/06/2025 CBC WITH DIFFE RENTI AL/PL ATELE T baso (absolute) 0.1 x10e3 /uL 0.0-0. 2 normal Not Available [facility] ([facility]) [address] [facility], [place], [address], 06/08/2025 06:22:13 06/06/2006/06/2025 CBC WITH DIFFE RENTI AL/PL ATELE T immature granulocytes 0 % not estab. Not Available [facility] ([facility]) [address] [facility], [place], [address], 06/08/2025 06:22:13 06/06/2006/06/2025 CBC WITH DIFFE RENTI AL/PL ATELE T immature grans (abs) 0.0 x10e3 /uL 0.0-0. 1 Not Available [facility] ([facility]) [address] [facility], [place], [address], 06/08/2025 06:22:13 06/06/2006/06/2025 CBC WITH DIFFE RENTI AL/PL ATELE T NRBC EMPLOYEE RELATION MANAGER Not Available [facility] ([facility]) [address] [facility], [place], [address], 06/08/2025 06:22:13 06/06/2006/06/2025 CBC WITH DIFFE RENTI AL/PL ATELE T hematology comments: EMPLOYEE RELATION MANAGER Not Available [facility] ([facility]) [address] [facility], [place], [address], 06/08/2025 06:22:13 06/06/2006/08/2025 IMMUN OGLOB ULIN E, TOTAL immunoglobul in E, total 7 IU/mL 6-495 Not Available [facility] ([facility]) [address] [place], [address], 06/08/2025 06:22:16 Result Notes None recorded. Problems Name Problem SNOMED Code Status Onset Date Resolution Date Notes Provider Name and Address Organization Details Recorded Time Polyp of nasal cavity 678673950 Active 2015 Polyp of nasal cavity; Note: Date Diagnosed : 11/20/2015 10:16 AM (J33.0) YANNICK SANDERS [address], [place], [address], [facility] - [facility] 09:26:48 Dizzines s and giddines s 979973894 Completed 201506/06/2025 Dizziness and giddiness ; Note: Date Diagnosed : 12/21/2015 2:57 PM (R42) YANNICK SANDERS [address], [place], [address], [facility] - [facility] 12:55:08 Chronic sinusiti s 28828348 Completed 202406/06/2025 YANNICK SANDERS [address], [place], [address], [facility] - [facility] 12:55:10 Allergic rhinitis 17587827 Active 2024 YANNICK SANDERS [address], [place], [address], [facility] - [facility] 13:14:49 Deviated nasal septum 641839687 Active 2024 YANNICK SANDERS [address], [place], [address], [facility] - [facility] 13:14:57 Hypertro phy of nasal turbinat es 26549155 Active 2024 YANNICK SANDERS [address], [place], [address], [facility] - [facility] 13:15:23 Mild intermit tent asthma 690559258 Active 2024 YANNICK SANDERS [address], [place], [address], [facility] - [facility] 13:15:35 Loss of sense of smell 41740588 Active 2024 YANNICK SANDERS [address] [facility], [place], [address], [facility] - [facility] 13:15:55 Problem Notes None recorded. Procedures Surgical History Date Name Laterality Status Provider Name and Address Organization Details Recorded Time 06/06/2025 NasalEndos copy_DP completed YANNICK SANDERS [address] [facility] [address], [place], [address], [facility] 06/06/2025 12:54:15 Imaging Results None recorded. Procedure Notes None recorded. Medical Equipment None Reported. Allergies No known drug allergies Medications Name Sig Start Date Stop Date Status Note LastModified by Organization Details LastModified Time prednison e 10 mg tablet PLEASE SEE ATTACHED FOR DETAILED DIRECTIO NS active Not Available Not Available No t Available doxycycli ne hyclate 100 mg capsule TAKE [...] mg/2 mL suspensio n for nebulizat ion PLEASE SEE ATTACHED FOR DETAILED DIRECTIO NS active Not Available Not Available No t Available monteluka st 10 mg tablet TAKE 1 [...] mg tablet TAKE 1 TABLET BY MOUTH EVERY DAY active Not Available [...] Available Not Available No t Available Moon Brownquil Nighttime Relief 6.25 mg-15 mg-325 mg/15 mL oral liquid 2015 active Medicati on ID: [id number] B rand Name: Moon Nyquil Nighttim e Relief S end Method: E-Prescr ibed Sub s Allowed: subs OK Medic ationGen ericName : Moon Nyquil Nighttim e Relief Not Available Not Available Not Available Anoro Ellipta 62.5 mcg-25 mcg/actua tion powder for inhalatio n TAKE 1 PUFF BY MOUTH EVERY DAY active Not Available Not Available No t Available Vitals Date Recorded Body height Body mass index (BMI) Body weight Provider Name and Address Organization Details Last Updated DateTime 06/06/2025 160.02 cm 34.5 kg/m2 00339.51 g Bernadine [place] - [facility] 06/06/2025 09:02:05 Social History None recorded. Functional Status Question Answer Note LastModified by Organization D etails LastModified Time What is your level of alcohol consumption? None [email or web address] Information not available 06/06/2025 Mental Status None recorded. Family History Nothing Reported. Medical History Condition Response Allergies/Hayfever N Heart Problems N Anxiety Y Tonsil Infections N Emphysema N Migraines Y Thyroid Problems N COPD N Depression Y Developmental Delay N Glaucoma N Nasal or Sinus Problems N Anemia N Immune System Disorder N Anesthesia Complications N Heart Attack ([place]) N Other Skin Condition N Diabetes N Rhinitis N Bleeding Disorder N Food Allergy N Hearing Loss N Arthritis Y Hyperlipidemia N Cancer N Stroke N Dementia N Nasal polyps N Asthma Y Sleep Disorder N High Cholesterol N GERD/Reflux N Liver Disease N Headaches Y Fibromyalgia N Hypertension N Speech Delay N Kidney Disease Y Gynecological HistoryNo gynecological history recorded. Obstetrics History GPAL:G 0 P 0 0 0 0 Past Encounters Encounter ID Performer Location Encounter Start Date Encounter Closed Date Diagnosis/Indication Diagnosis SNOMED-CT Code Diagnosis ICD10 Code Diagnosis IMO Codes Diagnosis Note [id number] NORMA MOLINA MD [facility] [address] [address] 06/06/2025 08:47:45 06/06/2025 09:32:36 Polyp of nasal cavity 433581057 J33.0 172103 Allergic rhinitis 310485 04 J30.89 4132620 Deviated nasal septum 12 2812067 J34.2 564171 Hypertroph y of nasal turbinates 65493706 J34.3 1612953 Mild inter mittent asthma 047815276 J45.20 8768366 Loss of se nse of smell 66814268 R43.0 49758 Health Concerns Section Related Observation LastModified by Organization Detai ls LastModified Time None Recorded Concern Status LastModified by Organization Details LastModified Time None Recorded Advance Directives Directive None Recorded Payers Insurance Date Sequence Insurance Name Policy Number Policy Danielson Covered Member ID Danielson Member ID Guarantor Name 06/06/2025 1 [employer] Smihta Willis [id number] Smitha Willis 06/06/2025 1 [facility] [id number] Smitha Lazaro [id number] Smitha [place] Notes Date Note Type Note Provider Name [...] nasal trauma and surgery. NORMA MOLINA MD [address] [place] [address], [place], [address], [facility] - [facility] 06/06/2025 17:08:11 OBGyn Episode No OBEpisode recorded.
== END 2025-06-29 16:18 | disposition home or self-care (01) ==
LOC: HO.HMCH 15:35
PROVIDERS: PCP Internal Medicine; Visit Provider Internal Medicine
DX: Z00.00 Encounter for general adult medical examination without abnormal findings (principal); R20.2 Paresthesia of skin; F33.0 Major depressive disorder, recurrent, mild; Z23 Encounter for immunization

== ENCOUNTER → 2025-06-29 15:35 | Outpatient (BNVA) | payer OTHER, SELFPAY | PROVIDERS: PCP Internal Medicine; Visit Provider Internal Medicine | DX: Z00.00 Encounter for general adult medical examination without abnormal findings (principal); M85.80 Other specified disorders of bone density and structure, unspecified site; J45.909 Unspecified asthma, uncomplicated; G62.9 Polyneuropathy, unspecified; M79.7 Fibromyalgia; R20.2 Paresthesia of skin; F33.0 Major depressive disorder, recurrent, mild; Z23 Encounter for immunization | CPT/HCPCS: 90471; 90715 ==

== ENCOUNTER 2025-08-01 08:56 | Outpatient (REF) | payer OTHER, SELFPAY ==
--- NOTE | 2025-08-01 08:58 | EMG_ITS ---
Chief complaint: pain and numbness in bilateral legs Reason for referral: R20.2 paresthesia of skin Referred by: Yajaira Vasquez MD Procedure done: NCS and EMG of bilateral lower extremity Bilateral peroneal and tibial motor studies were performed with F responses. Tibial H reflexes were obtained. Bilateral superficial peroneal and sural sensory studies were performed and median and lateral mixed plantar sensory studies were performed. Needle examination was performed Findings: Motor studies did not reveal any significant abnormality. Superficial peroneal amplitudes were diminished with mild slowing of conduction velocity. Same pattern was noted with left sural. Plantars sensory study amplitudes were severely diminished with slowing of conduction velocity. Impression: Moderately severe axonal sensory peripheral neuropathy Codin 60768 x2 MTDD
--- OUTSIDE RECORDS SUMMARY | 2025-08-01 18:31 | XMS_ITS | Data Portability ---
Author Organization [place] [facility], Allergy Address [address] [address] Care Team Providers Care Band Top Maker Name Role Phone SAMANTHA ESCALANTE Primary Care [...] recorded. Imaging CT, sinuses, w/o contrast 2024 [email or web address] [facility] [place], [address] [address], [place], [address], 13:51:38 Medication Orders prednisone 10 mg tablet 2024 025 [facility]/Pharmacy #[id number], [address] [place], [address], 13:01:19 budesonide 0.5 mg/2 mL suspension for nebulizati on 2024 025 [facility]/Pharmacy #[id number], [address] [place], [address], 13:21:37 Patient TargetsNo targets recorded. Patient InstructionsNo instructions recorded. Reason for Referral None Reported. Results Created Date Observation Date Name Description Value Unit Range Abnormal Flag Note LastModifiedBy Organization Detail LastModifiedTime 06/06/2006/06/2025 CBC WITH DIFFE RENTI AL/PL ATELE T WBC 5.8 x10e3 /uL 3.4-10 .8 normal Not Available [facility] [address] [facility], [place], [address], 06/08/2025 06:22:13 06/06/2006/06/2025 CBC WITH DIFFE RENTI AL/PL ATELE T RBC 4.56 x10e6 /uL 3.77-5 .28 normal Not Available [facility]) [address] [place], [address], 06/08/2025 06:22:13 06/06/2006/06/2025 CBC WITH DIFFE RENTI AL/PL ATELE T hemoglobin 14.0 g/dL 11.1-1 5.9 normal Not Available [facility] ([facility]) [address] [place], [address], 06/08/2025 06:22:13 06/06/2006/06/2025 CBC WITH DIFFE RENTI AL/PL ATELE T hematocrit 43.7 % 34.0-4 6.6 normal Not Available [facility] ([facility]) [address] [place], [address], 06/08/2025 06:22:13 06/06/2006/06/2025 CBC WITH DIFFE RENTI AL/PL ATELE T MCV 96 fL 79-97 normal Not Available [facility] ([facility]) [address] [place], [address], 06/08/2025 06:22:13 06/06/2006/06/2025 CBC WITH DIFFE RENTI AL/PL ATELE T MCH 30.7 pg 26.6-3 3.0 normal Not Available [facility] ([facility]) [address] [place], [address], 06/08/2025 06:22:13 06/06/2006/06/2025 CBC WITH DIFFE RENTI AL/PL ATELE T MCHC 32.0 g/dL 31.5-3 5.7 normal Not Available [facility]) [address] [place], [address], 06/08/2025 06:22:13 06/06/2006/06/2025 CBC WITH DIFFE RENTI AL/PL ATELE T RDW 13.0 % 11.7-1 5.4 Not Available [facility]) [address] [facility], [place], [address], 06/08/2025 06:22:13 06/06/2006/06/2025 CBC WITH DIFFE RENTI AL/PL ATELE T platelets 313 x10e3 /uL 150-45 0 normal Not Available [facility]) [address] [facility], [place], [address], 06/08/2025 06:22:13 06/06/2006/06/2025 CBC WITH DIFFE RENTI AL/PL ATELE T neutrophils 54 % not estab. normal Not Available [facility]) [address] [facility], [place], [address], 06/08/2025 06:22:13 06/06/2006/06/2025 CBC WITH DIFFE RENTI AL/PL ATELE T lymphs 30 % not estab. normal Not Available [facility]) [address] [facility], [place], [address], 06/08/2025 06:22:13 06/06/2006/06/2025 CBC WITH DIFFE RENTI AL/PL ATELE T monocytes 11 % not estab. normal Not Available [facility]) [address] [facility], [place], [address], 06/08/2025 06:22:13 06/06/2006/06/2025 CBC WITH DIFFE RENTI AL/PL ATELE T eos 4 % not estab. normal Not Available [facility]) [address] [facility], [place], [address], 06/08/2025 06:22:13 06/06/2006/06/2025 CBC WITH DIFFE RENTI AL/PL ATELE T basos 1 % not estab. normal Not Available [facility]) [address] [facility], [place], [address], 06/08/2025 06:22:13 06/06/2006/06/2025 CBC WITH DIFFE RENTI AL/PL ATELE T immature cells CORDWAINER Not Available [facility] [address] [facility], [place], [address], 06/08/2025 06:22:13 06/06/2006/06/2025 CBC WITH DIFFE RENTI AL/PL ATELE T neutrophils (absolute) 3.2 x10e3 /uL 1.4-7. 0 normal Not Available [facility]) [address] [facility], [place], [address], 06/08/2025 06:22:13 06/06/2006/06/2025 CBC WITH DIFFE RENTI AL/PL ATELE T lymphs (absolute) 1.7 x10e3 /uL 0.7-3. 1 normal Not Available [facility] [address] [place], [address], 06/08/2025 06:22:13 06/06/2006/06/2025 CBC WITH DIFFE RENTI AL/PL ATELE T monocytes(ab solute) 0.6 x10e3 /uL 0.1-0. 9 normal Not Available [facility]) [address] [place], [address], 06/08/2025 06:22:13 06/06/2006/06/2025 CBC WITH DIFFE RENTI AL/PL ATELE T eos (absolute) 0.2 x10e3 /uL 0.0-0. 4 normal Not Available [facility]) [address] [place], [address], 06/08/2025 06:22:13 06/06/2006/06/2025 CBC WITH DIFFE RENTI AL/PL ATELE T baso (absolute) 0.1 x10e3 /uL 0.0-0. 2 normal Not Available [facility]) [address] [facility], [place], [address], 06/08/2025 06:22:13 06/06/2006/06/2025 CBC WITH DIFFE RENTI AL/PL ATELE T immature granulocytes 0 % not estab. Not Available [facility]) [address] [facility], [place], [address], 06/08/2025 06:22:13 06/06/2006/06/2025 CBC WITH DIFFE RENTI AL/PL ATELE T immature grans (abs) 0.0 x10e3 /uL 0.0-0. 1 Not Available [facility]) [address] [facility], [place], [address], 06/08/2025 06:22:13 06/06/20 25 06/06/2025 CBC WITH DIFFE RENTI AL/PL ATELE T NRBC CORDWAINER Not Available [facility]) [address] [facility], [place], [address], 06/08/2025 06:22:13 06/06/2006/06/2025 CBC WITH DIFFE RENTI AL/PL ATELE T hematology comments: CORDWAINER Not Available [facility] [address] [facility], [place], [address], 06/08/2025 06:22:13 06/06/2006/08/2025 IMMUN OGLOB ULIN E, TOTAL immunoglobul in E, total 7 IU/mL 6-495 Not Available [facility] [address] [facility], [place], [address], 06/08/2025 06:22:16 07/05/20 25 07/04/2025 CT, sinus es, w/o contr ast No observ ation record ed. [email or web address] [facility] [place] [address] [address], [place], [address], 07/14/2025 13:13:46 Result Notes None recorded. Problems Name Problem SNOMED Code Status Onset Date Resolution Date Notes Provider Name and Address Organization Details Recorded Time Polyp of nasal cavity 832397795 Active 2015 Polyp of nasal cavity; Note: Date Diagnosed : 11/20/2015 10:16 AM (J33.0) YANNICK SANDERS [address] [facility], [place], [address], [facility] [place] 09:26:48 Dizzines s and giddines s 651650701 Completed 201506/06/2025 Dizziness and giddiness ; Note: Date Diagnosed : 12/21/2015 2:57 PM (R42) YANNICK SANDERS [address] [facility],[address], [place], [address], [facility] - [facility] [place] 12:55:08 Chronic sinusiti s 65877696 Completed 202406/06/2025 YANNICK SANDERS [address] [facility] [place], [facility] [place], [address], [facility] - [facility] [place] 12:55:10 Allergic rhinitis 60301559 Active 2024 YANNICK SANDERS [address] [facility],[address], [place], [address], [facility] - [facility] [place] 13:14:49 Deviated nasal septum 477444439 Active 2024 YANNICK SANDERS [address] [facility], [place], [address], [facility] - [facility] [place] 13:14:57 Hypertro phy of nasal turbinat es 35980868 Active 2024 YANNICK SANDERS [address] [facility] [place], [facility], [address], [facility] - [facility] [place] 13:15:23 Mild intermit tent asthma 497986004 Active 2024 YANNICK SANDERS [address] [facility],[address] [address], [place], [address], [facility] - [facility] [place] 13:15:35 Loss of sense of smell 94320575 Active 2024 YANNICK SANDERS [address] [facility], [address], [place], [address], [facility] - [facility] [place] 13:15:55 Problem Notes None recorded. Procedures Surgical History Date Name Laterality Status Provider Name and Address Organization Details Recorded Time 06/06/2025 NasalEndos copy_DP completed YANNICK SANDERS [address] [facility] [address], [place], [address], [facility] - [facility] [place] 06/06/2025 12:54:15 Imaging Results None recorded. Procedure [...] Available Not Available No t Available Moon Nyquil Nighttime Relief 6.25 mg-15 mg-325 mg/15 mL oral liquid 2015 active Medicati on ID: [id number] B rand Name: Moon Brownquil Nighttim e Relief S end Method: E-Prescr [...] Updated DateTime 06/06/2025 160.02 cm 34.5 kg/m2 85242.51 g Bernadine [place] - [facility] 06/06/2025 09:02:05 Social History None recorded. Functional [...] Disorder N Anesthesia Complications N Heart Attack ([place]) N Other Skin Condition N Diabetes N [...] ICD10 Code Diagnosis IMO Codes Diagnosis Note [id number] NORMA MOLINA MD [facility] [address] [address] 06/06/2025 08:47:45 06/06/2025 09:32:36 Polyp of nasal cavity 797321240 J33.0 659379 Allergic rhinitis 866776 04 J30.89 5504128 Deviated nasal septum 12 8755148 J34.2 254658 Hypertroph y of nasal turbinates 74098768 J34.3 7268316 Mild inter mittent asthma 210958301 J45.20 6152838 Loss of se nse of smell 93957678 R43.0 24944 Health Concerns Section Related Observation LastModified by Organization Detai ls LastModified Time None Recorded Concern Status LastModified by Organization Details LastModified Time None Recorded Advance Directives Directive None Recorded Payers Insurance Date Sequence Insurance Name Policy Number Policy Danielson Covered Member ID Danielson Member ID Guarantor Name 06/06/2025 1 [employer] Smitha Willis [id number] Smitha Willis 06/06/2025 1 [facility] [id number] Smitha Colon [id number] Smitha [place] Notes Date Note Type Note Provider Name [...] nasal trauma and surgery. NORMA MOLINA MD [address] [place] [address], [address], [facility] - [facility] 06/06/2025 17:08:11 OBGyn Episode No OBEpisode recorded.
--- OUTSIDE RECORDS SUMMARY | 2025-08-01 18:31 | XMS_ITS | Continuity of Care Document ---
Author Organization [place] - [facility], [facility] Address [address] [place] [address] Care Team Providers Care Hurl Shaker Name Role Phone SAMANTHA ESCALANTE Primary Care [...] Go To The Location Of Their Choice, [address] 06:22:16 CBC w/ auto diff 2024 025 JULY [facility] ([facility] Ordering - All Locations), Patient Can Go To The Location Of Their Choice, [address] 06:22:15 Referral None recorded. Procedures allergy testing, skin prick (PROC) 2024 025 [email or web address] Not available 11:38:43 intraderma l allergy skin testing (PROC) 2024 025 [email or web address] Not available 11:38:43 pulmonary function test procedure (PROC) 2024 025 [email or web address] Not available 11:38:43 pulse oximetry (PROC) 2024 025 [email or web address] Not available 11:38:43 Surgeries None recorded. Imaging CT, sinuses, w/o contrast 2024 [facility] [place], [address], [place], [address], 13:51:38 Medication Orders prednisone 10 mg tablet 2024 025 [facility]/Pharmacy #2071, [address] [place], [address], 13:01:19 budesonide 0.5 mg/2 mL suspension for nebulizati on 2024 [facility]/Ph[facility]acy #[id number], [address] [place], [address], 13:21:37 Patient TargetsNo targets recorded. Patient InstructionsNo instructions recorded. Reason for Referral None Reported. Results Created Date Observation Date Name Description Value Unit Range Abnormal Flag Note LastModifiedBy Organization Detail LastModifiedTime 06/06/2006/06/2025 CBC WITH DIFFE RENTI AL/PL ATELE T WBC 5.8 x10e3 /uL 3.4-10 .8 normal Not Available [facility] ([facility]) [address] [facility], [place], [address], 06/08/2025 06:22:13 06/06/2006/06/2025 CBC WITH DIFFE RENTI AL/PL ATELE T RBC 4.56 x10e6 /uL 3.77-5 .28 normal Not Available [facility] ([facility]) [address] [place], [address], 06/08/2025 06:22:13 06/06/2006/06/2025 CBC WITH DIFFE RENTI AL/PL ATELE T hemoglobin 14.0 g/dL 11.1-1 5.9 normal Not Available [facility] ([facility]) [address] [place], [address], 06/08/2025 06:22:13 06/06/2006/06/2025 CBC WITH DIFFE RENTI AL/PL ATELE T hematocrit 43.7 % 34.0-4 6.6 normal Not Available [facility] ([facility]) [address] [place], [address], 06/08/2025 06:22:13 06/06/2006/06/2025 CBC WITH DIFFE RENTI AL/PL ATELE T MCV 96 fL 79-97 normal Not Available [facility] ([facility]) [address] [place], [address], 06/08/2025 06:22:13 06/06/2006/06/2025 CBC WITH DIFFE RENTI AL/PL ATELE T MCH 30.7 pg 26.6-3 3.0 normal Not Available [facility] ([facility]) [address] [place], [address], 06/08/2025 06:22:13 06/06/2006/06/2025 CBC WITH DIFFE RENTI AL/PL ATELE T MCHC 32.0 g/dL 31.5-3 5.7 normal Not Available [facility] ([facility]) [address] [place], [address], 06/08/2025 06:22:13 06/06/2006/06/2025 CBC WITH DIFFE RENTI AL/PL ATELE T RDW 13.0 % 11.7-1 5.4 Not Available [facility] ([facility]) [address] [facility], [place], [address], 06/08/2025 06:22:13 06/06/2006/06/2025 CBC WITH DIFFE RENTI AL/PL ATELE T platelets 313 x10e3 /uL 150-45 0 normal Not Available [facility] ([facility]) [address] [facility], [place], [address], 06/08/2025 06:22:13 06/06/2006/06/2025 CBC WITH DIFFE RENTI AL/PL ATELE T neutrophils 54 % not estab. normal Not Available [facility] ([facility]) [address] [facility], [place], [address], 06/08/2025 06:22:13 06/06/2006/06/2025 CBC WITH DIFFE RENTI AL/PL ATELE T lymphs 30 % not estab. normal Not Available [facility] ([facility]) [address] [facility], [place], [address], 06/08/2025 06:22:13 06/06/2006/06/2025 CBC WITH DIFFE RENTI AL/PL ATELE T monocytes 11 % not estab. normal Not Available [facility] ([facility]) [address] [facility], [place], [address], 06/08/2025 06:22:13 06/06/2006/06/2025 CBC WITH DIFFE RENTI AL/PL ATELE T eos 4 % not estab. normal Not Available [facility] ([facility]) [address] [facility], [place], [address], 06/08/2025 06:22:13 06/06/2006/06/2025 CBC WITH DIFFE RENTI AL/PL ATELE T basos 1 % not estab. normal Not Available [facility] ([facility]) [address] [facility], [place], [address], 06/08/2025 06:22:13 06/06/2006/06/2025 CBC WITH DIFFE RENTI AL/PL ATELE T immature cells ENVIRONMENTAL PROTECTION OFFICER Not Available [facility] ([facility]) [address] [facility], [place], [address], 06/08/2025 06:22:13 06/06/2006/06/2025 CBC WITH DIFFE RENTI AL/PL ATELE T neutrophils (absolute) 3.2 x10e3 /uL 1.4-7. 0 normal Not Available [facility] ([facility]) [address] [facility], [place], [address], 06/08/2025 06:22:13 06/06/2006/06/2025 CBC WITH DIFFE RENTI AL/PL ATELE T lymphs (absolute) 1.7 x10e3 /uL 0.7-3. 1 normal Not Available [facility] ([facility]) [address] [place], [address], 06/08/2025 06:22:13 06/06/2006/06/2025 CBC WITH DIFFE RENTI AL/PL ATELE T monocytes(ab solute) 0.6 x10e3 /uL 0.1-0. 9 normal Not Available [facility] ([facility]) [address] [place], [address], 06/08/2025 06:22:13 06/06/2006/06/2025 CBC WITH DIFFE RENTI AL/PL ATELE T eos (absolute) 0.2 x10e3 /uL 0.0-0. 4 normal Not Available [facility] ([facility]) [address] [place], [address], 06/08/2025 06:22:13 06/06/2006/06/2025 CBC WITH DIFFE RENTI AL/PL ATELE T baso (absolute) 0.1 x10e3 /uL 0.0-0. 2 normal Not Available [facility] ([facility]) [address] [facility], [place], [address], 06/08/2025 06:22:13 06/06/20 25 06/06/2025 CBC WITH DIFFE RENTI AL/PL ATELE T immature granulocytes 0 % not estab. Not Available [facility] ([facility]) [address] [facility], [place], [address], 06/08/2025 06:22:13 06/06/2006/06/2025 CBC WITH DIFFE RENTI AL/PL ATELE T immature grans (abs) 0.0 x10e3 /uL 0.0-0. 1 Not Available [facility] ([facility]) [address] [facility], [place], [address], 06/08/2025 06:22:13 06/06/2006/06/2025 CBC WITH DIFFE RENTI AL/PL ATELE T NRBC ENVIRONMENTAL PROTECTION OFFICER Not Available [facility] ([facility]) [address] [facility], [place], [address], 06/08/2025 06:22:13 06/06/2006/06/2025 CBC WITH DIFFE RENTI AL/PL ATELE T hematology comments: ENVIRONMENTAL PROTECTION OFFICER Not Available [facility] ([facility]) [address] [facility], [place], [address], 06/08/2025 06:22:13 06/06/2006/08/2025 IMMUN OGLOB ULIN E, TOTAL immunoglobul in E, total 7 IU/mL 6-495 Not Available [facility] ([facility]) [address] [place], [address], 06/08/2025 06:22:16 07/05/20 25 07/04/2025 CT, sinus es, w/o contr ast No observ ation record ed. [email or web address] [facility] [place] [address], [place], [address], 07/14/2025 13:13:46 Result Notes None recorded. Problems Name Problem SNOMED Code Status Onset Date Resolution Date Notes Provider Name and Address Organization Details Recorded Time Polyp of nasal cavity 370488898 Active 2015 Polyp of nasal cavity; Note: Date Diagnosed : 11/20/2015 10:16 AM (J33.0) YANNICK SANDERS [address] [facility] [address], [place], [address], [facility] - [facility] [place] 09:26:48 Dizzines s and giddines s 264800956 Completed 201506/06/2025 Dizziness and giddiness ; Note: Date Diagnosed : 12/21/2015 2:57 PM (R42) YANNICK SANDERS [address] [facility],[address] [facility], [place], [address], [facility] - [facility] [place] 12:55:08 Chronic sinusiti s 70975655 Completed 202406/06/[address] [facility],[address], [place], [address], [facility] - [facility] [place] 12:55:10 Allergic rhinitis 47667417 Active [address] [facility],[address], [place], [address], [facility] - [facility] [place] 13:14:49 Deviated nasal septum 236664807 Active 2024 YANNICK SANDERS [address] [facility] [place],[address], [place], [address], [facility] - [facility] [place] 13:14:57 Hypertro phy of nasal turbinat es 40379600 Active 2024 YANNICK SANDERS [address] [facility] [place],[address], [place], [address], [facility] - [facility] [place] 13:15:23 Mild intermit tent asthma 480962745 Active 2024 YANNICK SANDERS [address] [address], [place], [address], [facility] - [facility] [place] 13:15:35 Loss of sense of smell 20937343 Active 2024 YANNICK SANDERS [address] [address], [place], [address], [facility] - [facility] [place] 13:15:55 Problem Notes None recorded. Procedures Surgical History Date Name Laterality Status Provider Name and Address Organization Details Recorded Time 06/06/2025 NasalEndos copy_DP completed YANNICK SANDERS [address] [address], [place], [address], [facility] - [facility] [place] 06/06/2025 12:54:15 Imaging Results None recorded. Procedure [...] oral liquid 2015 active Medicati on ID: [id number] B rand Name: Moon Brownquil Nighttim e [...] Updated DateTime 06/06/2025 160.02 cm 34.5 kg/m2 11823.51 g Bernadine [place] - [facility] 06/06/2025 09:02:05 Social History None recorded. [...] Disorder N Anesthesia Complications N Heart Attack ([place]) N Other Skin Condition N Diabetes N Rhinitis N Bleeding Disorder N Food Allergy N Arthritis Y Hearing Loss N Hyperlipidemia N Cancer N Stroke N Dementia N Nasal polyps N Asthma Y Sleep Disorder N GERD/Reflux N High Cholesterol N Liver Disease N Headaches Y Fibromyalgia N Hypertension N Speech Delay N Kidney Disease Y Gynecological HistoryNo gynecological history recorded. Obstetrics History GPAL:G 0 P 0 0 0 0 Past Encounters Encounter ID Performer Location Encounter Start Date Encounter Closed Date Diagnosis/Indication Diagnosis SNOMED-CT Code Diagnosis ICD10 Code Diagnosis IMO Codes Diagnosis Note [id number] NORMA MOLINA MD [facility] [address] [address] 06/06/2025 08:47:45 06/06/2025 09:32:36 Polyp of nasal cavity 073828137 J33.0 244865 Allergic rhinitis 380348 04 J30.89 2816708 Deviated nasal septum 12 7423916 J34.2 556378 Hypertroph y of nasal turbinates 97100912 J34.3 3854235 Mild inter mittent asthma 524517234 J45.20 5253485 Loss of se nse of smell 93156701 R43.0 68961 Health Concerns Section Related Observation LastModified by Organization Detai ls LastModified Time None Recorded Concern Status LastModified by Organization Details LastModified Time None Recorded Payers Encounter Date Sequence Insurance Name Policy Number Policy Danielson Covered Member ID Danielson Member ID Guarantor Name 06/06/2025 1 [facility] [employer] Smitha Willis [id number] Smitha Willis Notes Date Note Type Note Provider Name [...] nasal trauma and surgery. NORMA MOLINA MD [address] [place] [address], [address], [facility] - [facility] 06/06/2025 17:08:11 OBGyn Episode No OBEpisode recorded.
== END 2025-08-01 08:57 | disposition home or self-care (01) ==
LOC: HO.NEURO 08:56
PROVIDERS: PCP Internal Medicine; Visit Provider Internal Medicine
DX: R20.2 Paresthesia of skin (principal); R20.0 Anesthesia of skin; M79.605 Pain in left leg; M79.604 Pain in right leg
CPT/HCPCS: 95886; 95913

== ENCOUNTER → 2025-08-01 08:58 | Outpatient (BNV) | payer OTHER, SELFPAY | PROVIDERS: PCP Internal Medicine; Visit Provider Psychiatry & Neurology Neurology | DX: G62.89 Other specified polyneuropathies (principal) | CPT/HCPCS: 95886; 95913 ==

== ENCOUNTER 2025-08-03 14:43 | Outpatient (AMB) | payer OTHER, SELFPAY ==
[2025-08-03 14:47] VITALS: BMI 34.4
--- NOTE | 2025-08-03 14:47 | MHC.OFFVIS ---
Vital Signs 08/03/25 14:47 Height 5 ft 3 in Weight 194 lb BMI 34.4 Intake Visit Reasons: OV- LT knee pain Intake Note: Smitha is a 65 year old female who presents with complaints of left knee pain and swelling. She describes her pain as sharp in nature. She has had cortisone injections in the past which gave her fairly good relief. She wishes to hold off on surgery if at all possible. Allergies No Known Allergies Allergy (Verified 08/03/25 14:52) Medication List - Last Reconciled 08/03/25 by Ronan Clark MD albuterol sulfate 90 mcg/actuation 1 inh inhalation QID PRN cane As directed cholecalciferol (vitamin D3) 25 mcg PO DAILY diclofenac sodium 1% (Arthritis Pain (diclofenac)) 2 grams topical QID 30 days estradiol 0.5 mg PO DAILY gabapentin 100 mg PO BEDTIME 90 days medroxyprogesterone 2.5 mg PO DAILY mirtazapine (Remeron) 30 mg PO BEDTIME montelukast 10 mg PO DAILY umeclidinium-vilanterol 62.5-25 mcg/actuation (Anoro Ellipta) 1 inh inhalation DAILY 60 days [facility] Medical History Major depressive disorder, single episode, moderate Insomnia Asthma with COPD Depression Renal cyst, acquired, right Hypertension Lumbar back pain Surgical History No pertinent past surgical history Family History Mother Diabetes Father No problems noted. Social History Housing: Apartment Alcohol intake: never Patient Tobacco Use Status: Former Tobacco user (14 years ago) Tobacco use type: Cigarette e-Cigarette/Vaping Use: Never Used Second Hand Smoke Exposure: Yes service: No Current occupational status: employed Current occupation: [employer] Current occupational exposures/hazards: No Cognitive needs: No Hearing needs: No Vision needs: Yes (glasses) Physical Exam Vital Signs: BMI result Body Mass Index 34.4 Extrem Other: Left knee examination shows a moderate effusion, mild crepitus with range of motion, tenderness along her medial joint line, positive Alan's test, no instability Office Procedures AMB Joint Injection/Aspiration Joint Injection/Aspiration Primary Site: Left Knee Prep: site was prepped using aseptic technique Injected: 40 mg of, DepoMedrol, with 3 mL of and 1% plain Lidocaine Procedure: The patient tolerated the procedure well Coding 96233 - Large joint Procedure code (CPT) selection complete Assessment & Plan Assessment & Plan (1) Osteoarthritis of left knee: Code(s): M17.12 - Unilateral primary osteoarthritis, left knee Category: Medical Plan Ms. Willis presents with left knee pain due to early degenerative joint disease as well as a medial meniscus tear. I had a lengthy discussion with the patient regarding the treatment options. She wishes to hold off on surgery if at all possible. I agree with this plan. The risks and benefits of a left knee cortisone injection were discussed at length with the patient. The patient wished to proceed. She tolerated the injection well. She will continue with her home exercise program. She will contact me prior to her follow-up appointment in 3 months should any questions or concerns arise. Feel free to call me at any time should questions regarding her orthopedic management arise. I spent 21 minutes in reviewing the patient's records and imaging studies, seeing the patient and documenting in the medical record. Orders: Orders AMB Joint Injection/Aspiration 08/03/25 M17.12 - Unilateral primary osteoarthritis, left knee Coding Level of Care Code Est Pt Level 3 (47769) Complex visit Add On G2211 Diagnoses Osteoarthritis of left knee M17.12 CPT Codes Coding - 93910 Large joint: 90137 - Large joint ([id number])
--- OUTSIDE RECORDS SUMMARY | 2025-08-03 20:07 | XMS_ITS | Clinical Summary ---
Author Organization [facility] Address [address] [place] [address] Care Team Providers Care University Librarian Name Role Phone Tequila Haq MD Primary Care Provider [phone] Allergies Active Allergy Reactions Criticality Noted Date [...] Renal mass 02/19/2017 Hematuria 02/18/2015 Overview: Overview: [facility] uro Neg cystoscopy 2012January 2015, recurrent hematuria. Initiated work up again Breast lump in female 02/09/2014 Overview: Overview: Biopsy done january 2014 at [facility] Negative per pt Needs mammo in 1 year Anxiety 01/21/2014 Asthma 01/21/2014 Depression 01/21/2014 H/O colonoscopy 01/21/2014 Overview: Overview: Normal, 1 polyp removed HTN (hypertension) 01/21/2014 BETSY (obstructive sleep apnea) 01/21/2014 ASCUS on Pap smear 09/23/2011 Overview: Overview: Not clear if has seen Risk Intern since then Last pap smear December 2013, results pending (at [facility] pcp) Social History Tobacco Use Types Packs/Day [...] age to complete this topic Care Teams University Librarian Relationship Specialty Start Date End Date Tequila Haq MD [address] [facility] [address] [place] [address] PCP - General Internal Medicine 05/27/19
--- OUTSIDE RECORDS SUMMARY | 2025-08-03 20:07 | XMS_ITS | Clinical Summary ---
Author Organization [facility] Address [address] [place] [address] Phone Care Team Providers Care Sorter Laundry Articles Name Role Phone Tequila Haq MD Primary Care Provider [phone] Medications medroxyPROGESTE Wolfgang (PROVERA) 2.5 mg tablet Take 1 tablet (2.5 mg total) by mouth 1 (one) time each day. 90 each 03/09/2025 Active estradioL (ESTRACE) 0.5 mg tablet TAKE 1 TABLET BY MOUTH 1 TIME EACH DAY. - INS NOT PAYING, MEMBER MUST CALL [phone] 90 tablet 1 04/03/2025 Active calcium carbonate-vitam in D3 600 mg-10 mcg (400 unit) capsule Take 1 capsule by mouth 2 (two) times a day. 180 each 2 06/20/2025 Active Encounters Date Type Department Care Team Description 06/20/2025 8:59 AM EDT - 06/20/2025 11:59 PM EDT Hospital Encounter [facility] Bone Density [address] [place] [address] Asymptomatic menopausal state Discharge Disposition: Home or Self Care 06/20/2025 Results Follow-Up Internal Medicine - [place] [address] [facility] [address] [place] [address] Tequila Haq MD from Last 3 Months Medical History Medical History Date Comments Anxiety [...] Care Team (Late st Contact Info) Description 09/19/2025 7:15 AM EST [facility]ointment [facility] [address] [address] Health Maintenance Due Date Last Done Comments Colorectal Cancer Screening: Colonoscopy 1960 DTaP,Tdap,and Td Vaccines (1 - Tdap) 1979 Cervical Cancer Screening: HPV 1981 RSV Immunization Adult Patients (1 - Risk 50-74 years 1-dose series) 2010 Zoster Vaccines (1 of 2) 2010 Cholesterol Screening (Lipid Panel) 08/22/2022 Hepatitis C Screening 08/22/2022 Social Influencers of Health Screening 08/22/2022 Hypertension/CHF/CAD Annual BMP Blood Test 08/28/2022 Depression Screening 09/14/2024 Falls Risk Assessment 2025 COVID-19 Vaccine ( season) 2025 07/16/2022, 03/18/2022, 10/10/2021, Additional history exists Influenza Vaccine (#1) 2025 4, 06/22/2023, 05/25/2019, Additional history exists Breast Cancer Screening 10/01/2025 10/01/19 24, 09/25/2022, 09/23/2021, Additional history exists Osteoporosis Screening (Bone Density Screening) 06/20/2035 06/20/2025 Pneumococcal Vaccine: 50+ Years Completed 03/21/2025, 07/14/2017 HIB Vaccines Aged Out No longer eligi [...] Procedure Name Priority Date/Time Associated Diagnosis Comments BD BONE DENSITY DXA AXIAL SKELETON Routine 06/20/2025 9:15 AM EDT Asymptomatic menopausal state CLARISA SCREENING DIGITAL Routine 10/01/2023 8:20 AM EST Encounter for screening mammogram for malignant neoplasm of breast from Last 3 Months or Most Recently Relevant to Health Maintenance Results * BD Bone Density DXA Axial Skeleton (06/20/2025 9:15 AM EDT) Anatomical Region Laterality Modality Wrist, Hip, L-spine Bone Densito metry 06/20/2025 10:0 6 AM EDT Impressions 06/20/2025 10:07 AM EDT 1. Osteopenia. 2. FRAX analysis yields a 10-year probability of major osteoporotic fracture of 4.6% and a 10-year probability of hip fracture of 0.5%. Code 35299 -------- FINAL REPORT -------- Dictated By: Mihai Thornton Dictated Date: 06/20/2025 10:06 ET Assigned Physician: Mihai Thornton Reviewed and Electronically Signed By: Mihai Thornton Signed Date: 06/20/2025 10:07 ET Workstation ID: [id number] Transcribed By: Self Edit Transcribed Date: 06/20/2025 10:06 ET Narrative 06/20/2025 10:07 AM EDT HISTORY: The patient is a 65-year-old postmenopausal female with clinical concern for metabolic bone disease. FINDINGS: Dual energy x-ray absorptiometry of the lumbar spine and femurs is performed. The mean bone mineral density at L1-3 is 1.278 gm/cm2 which is 109% of that of young normals and 119% of that of age matched controls. This yields a T-score of 0.9 and a Z-score of 1.7 and there is therefore no evidence of osteoporosis or osteopenia here. The mean bone mineral density of the femurs bilaterally is 0.973 gm/cm2 which is 97% of that of young normals and 105% of that of age matched controls. This yields a T-score of -0.3 and a Z-score of 0.4 and there is therefore no evidence of osteoporosis or osteopenia here. However, the T-score of the right femoral neck is -1.5 and that of the left femoral neck is -1.8 which is diagnostic of osteopenia. Procedure Note Mihai Thornton MD - 06/20/2025 HISTORY: The patient is a 65-year-old postmenopausal female with clinicalconcern for metabolic bone disease. FINDINGS: Dual energy x-ray absorptiometry of the lumbar spine and femursis performed. The mean bone mineral density at L1-3 is 1.278 gm/cm2 whichis 109% of that of young normals and 119% of that of age matched controls.This yields a T-score of 0.9 and a Z-score of 1.7 and there is thereforeno evidence of osteoporosis or osteopenia here. The mean bone mineral density of the femurs bilaterally is 0.973 gm/bj8ozpxo is 97% of that of young normals and 105% of that of age matchedcontrols. This yields a T-score of -0.3 and a Z-score of 0.4 and there istherefore no evidence of osteoporosis or osteopenia here. However, theT-score of the right femoral neck is -1.5 and that of the left femoralneck is -1.8 which is diagnostic of osteopenia. IMPRESSION: 1. Osteopenia. 2. FRAX analysis yields a 10-year probability of major osteoporoticfracture of 4.6% and a 10-year probability of hip fracture of 0.5%. Code 47789 -------- FINAL REPORT -------- Dictated By: Mihai Thornton Dictated Date: 06/20/2025 10:06 ET Assigned Physician: Mihai Thornton Reviewed and Electronically Signed By: Mihai Thornton Signed Date: 06/20/2025 10:07 ET Workstation ID: [id number] Transcribed By: Self Edit Transcribed Date: 06/20/2025 10:06 ET Yajaira Vasquez MD IMG DXA PROCEDURES Final Result * CLARISA SCREENING DIGITAL (10/01/2023 8:20 AM EST) Anatomical Region Laterality Modality Mammography 10/01/2023 7:19 AM EST Narrative 10/01/2023 8:20 AM EST [facility] Diagnostic Imaging Department [address] [place] [address] Patient: ANGELA GARCIA /Age/Sex: 1960 - 63 - F Unit#: [id number] Location/Status: SPDIMAM/REG CLI [facility]: SEDA ESCALANTE MD Clarisa Screening Digital - 10/01/23 - 37 Report Status:Signed EXAM: [facility] Screening Digital EXAM DATE AND TIME: 10/01/2023 7:38 AM HISTORY: Annual screening COMPARISON: Multiple exams dating back to 2015 TECHNIQUE: Bilateral digital breast tomosynthesis was performed in the CC and MLO projections. Computer aided detection with [employer] 3D 3.1 was employed. TISSUE DENSITY: b. [...] Procedure Note Pratik Jesus MD - 05/02/2024 [facility] Diagnostic Imaging Department [address] [place] [address] [id number] Patient: ANGELA GARCIA/Age/Sex: 1960 - 63 - F Unit#: [id number] Location/Status: [facility] CLI Mnemonic/Ordering Site: [facility] Ordering Physician: SEDA ESCALANTE MD Clarisa Screening Digital - 10/01/23 - 0737 Report Status:Signed EXAM: Clarisa Screening Digital EXAM DATE AND TIME: 10/01/2023 7:38 AM HISTORY: Annual screening COMPARISON: Multiple exams dating back to 2016 TECHNIQUE: Bilateral digital breast tomosynthesis was performed in the CCand MLO projections. Computer aided detection with [employer] 3D 3.1was employed. TISSUE DENSITY: b. There [...] Health Maintenance Insurance [employer] MD DANNI [id number] Care Teams Sorter Laundry Articles Relationship Specialty Start Date End Date Tequila Haq MD PCP - General Internal Medicine 01/11/19
--- OUTSIDE RECORDS SUMMARY | 2025-08-03 20:07 | XMS_ITS | Continuity of Care Document ---
Author Organization [place] - [facility], [facility] Address [address] [place] [address] Care Team Providers Care Project Management It Specialist Name Role Phone SAMANTHA ESCALANTE Primary Care [...] Go To The Location Of Their Choice, [address] 06:22:16 CBC w/ auto diff 2024 025 JULY [facility] (Centralized Electronic Ordering - All Locations), Patient Can Go To The Location Of Their Choice, [address] 06:22:15 Referral None recorded. Procedures allergy testing, skin prick (PROC) 2024 025 [email or web address] Not available 11:38:43 intraderma l allergy skin testing (PROC) 2024 025 [email or web address] Not available 11:38:43 pulmonary function test procedure (PROC) 2024 025 [email or web address] Not available 11:38:43 pulse oximetry (PROC) 2024 025 [email or web address] Not available 11:38:43 Surgeries None recorded. Imaging CT, sinuses, w/o contrast 2024 [email or web address] [facility] [place], [address], [place], [address], 13:51:38 Medication Orders prednisone 10 mg tablet 2024 025 [id number], [address] [place], [address], 13:01:19 budesonide 0.5 mg/2 mL suspension for nebulizati on 2024 [id number], [address] [place], [address], 13:21:37 Patient TargetsNo targets recorded. Patient InstructionsNo instructions recorded. Reason for Referral None Reported. Results Created Date Observation Date Name Description Value Unit Range Abnormal Flag Note LastModifiedBy Organization Detail LastModifiedTime 06/06/2006/06/2025 CBC WITH DIFFE RENTI AL/PL ATELE T WBC 5.8 x10e3 /uL 3.4-10 .8 normal Not Available [facility] ([facility]) [address] [facility], [place], [address], 06/08/2025 06:22:13 06/06/2006/06/2025 CBC WITH DIFFE RENTI AL/PL ATELE T RBC 4.56 x10e6 /uL 3.77-5 .28 normal Not Available [facility] ([facility]) [address] [place], [address], 06/08/2025 06:22:13 06/06/2006/06/2025 CBC WITH DIFFE RENTI AL/PL ATELE T hemoglobin 14.0 g/dL 11.1-1 5.9 normal Not Available [facility] ([facility]) [address] [place], [address], 06/08/2025 06:22:13 06/06/2006/06/2025 CBC WITH DIFFE RENTI AL/PL ATELE T hematocrit 43.7 % 34.0-4 6.6 normal Not Available [facility] ([facility]) [address] [place], [address], 06/08/2025 06:22:13 06/06/2006/06/2025 CBC WITH DIFFE RENTI AL/PL ATELE T MCV 96 fL 79-97 normal Not Available [facility] ([facility]) [address] [place], [address], 06/08/2025 06:22:13 06/06/2006/06/2025 CBC WITH DIFFE RENTI AL/PL ATELE T MCH 30.7 pg 26.6-3 3.0 normal Not Available [facility] ([facility]) [address] [place], [address], 06/08/2025 06:22:13 06/06/2006/06/2025 CBC WITH DIFFE RENTI AL/PL ATELE T MCHC 32.0 g/dL 31.5-3 5.7 normal Not Available [facility] ([facility]) [address] [place], [address], 06/08/2025 06:22:13 06/06/2006/06/2025 CBC WITH DIFFE RENTI AL/PL ATELE T RDW 13.0 % 11.7-1 5.4 Not Available [facility] ([facility]) [address] [facility], [place], [address], 06/08/2025 06:22:13 06/06/2006/06/2025 CBC WITH DIFFE RENTI AL/PL ATELE T platelets 313 x10e3 /uL 150-45 0 normal Not Available [facility] ([facility]) [address] [facility], [place], [address], 06/08/2025 06:22:13 06/06/2006/06/2025 CBC WITH DIFFE RENTI AL/PL ATELE T neutrophils 54 % not estab. normal Not Available [facility] ([facility]) [address] [facility], [place], [address], 06/08/2025 06:22:13 06/06/2006/06/2025 CBC WITH DIFFE RENTI AL/PL ATELE T lymphs 30 % not estab. normal Not Available [facility] ([facility]) [address] [facility], [place], [address], 06/08/2025 06:22:13 06/06/2006/06/2025 CBC WITH DIFFE RENTI AL/PL ATELE T monocytes 11 % not estab. normal Not Available [facility] ([facility]) [address] [facility], [place], [address], 06/08/2025 06:22:13 06/06/2006/06/2025 CBC WITH DIFFE RENTI AL/PL ATELE T eos 4 % not estab. normal Not Available [facility] ([facility]) [address] [facility], [place], [address], 06/08/2025 06:22:13 06/06/2006/06/2025 CBC WITH DIFFE RENTI AL/PL ATELE T basos 1 % not estab. normal Not Available [facility] ([facility]) [address] [facility], [place], [address], 06/08/2025 06:22:13 06/06/2006/06/2025 CBC WITH DIFFE RENTI AL/PL ATELE T immature cells INDUSTRIAL CHEMIST Not Available [facility] ([facility]) [address] [facility], [place], [address], 06/08/2025 06:22:13 06/06/2006/06/2025 CBC WITH DIFFE RENTI AL/PL ATELE T neutrophils (absolute) 3.2 x10e3 /uL 1.4-7. 0 normal Not Available [facility] ([facility]) [address] [facility], [place], [address], 06/08/2025 06:22:13 06/06/2006/06/2025 CBC WITH DIFFE RENTI AL/PL ATELE T lymphs (absolute) 1.7 x10e3 /uL 0.7-3. 1 normal Not Available [facility] ([facility]) [address] [place], [address], 06/08/2025 06:22:13 06/06/2006/06/2025 CBC WITH DIFFE RENTI AL/PL ATELE T monocytes(ab solute) 0.6 x10e3 /uL 0.1-0. 9 normal Not Available [facility] ([facility]) [address] [place], [address], 06/08/2025 06:22:13 06/06/2006/06/2025 CBC WITH DIFFE RENTI AL/PL ATELE T eos (absolute) 0.2 x10e3 /uL 0.0-0. 4 normal Not Available [facility] ([facility]) [address] [place], [address], 06/08/2025 06:22:13 06/06/2006/06/2025 CBC WITH DIFFE RENTI AL/PL ATELE T baso (absolute) 0.1 x10e3 /uL 0.0-0. 2 normal Not Available [facility] ([facility]) [address] [facility], [place], [address], 06/08/2025 06:22:13 06/06/20 25 06/06/2025 CBC WITH DIFFE RENTI AL/PL ATELE T immature granulocytes 0 % not estab. Not Available [facility] ([facility]) [address] [facility], [place], [address], 06/08/2025 06:22:13 06/06/2006/06/2025 CBC WITH DIFFE RENTI AL/PL ATELE T immature grans (abs) 0.0 x10e3 /uL 0.0-0. 1 Not Available [facility] ([facility]) [address] [facility], [place], [address], 06/08/2025 06:22:13 06/06/2006/06/2025 CBC WITH DIFFE RENTI AL/PL ATELE T NRBC INDUSTRIAL CHEMIST Not Available [facility] ([facility]) [address] [facility], [place], [address], 06/08/2025 06:22:13 06/06/2006/06/2025 CBC WITH DIFFE RENTI AL/PL ATELE T hematology comments: INDUSTRIAL CHEMIST Not Available [facility] ([facility]) [address] [facility], [place], [address], 06/08/2025 06:22:13 06/06/2006/08/2025 IMMUN OGLOB ULIN E, TOTAL immunoglobul in E, total 7 IU/mL 6-495 Not Available [facility] ([facility]) [address] [place], [address], 06/08/2025 06:22:16 07/05/20 25 07/04/2025 CT, sinus es, w/o contr ast No observ ation record ed. [email or web address] [facility] [place] [address], [place], [address], 07/14/2025 13:13:46 Result Notes None recorded. 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 - [facility] [place] 09:26:48 Dizzines s and giddines s 270568476 Completed 201506/06/2025 Dizziness and giddiness ; Note: Date Diagnosed : 12/21/2015 2:57 PM (R42) YANNICK SANDERS [address] [facility] [facility], [place], [address], [facility] - [facility] [place] 12:55:08 Chronic sinusiti s 67837299 Completed 202406/06/2025 YANNICK SANDERS [address] [facility], [place], [address], [facility] - [facility] [place] 12:55:10 Allergic rhinitis 52021259 Active 2024 YANNICK SANDERS [address] [facility], [place], [address], [facility] - [facility] [place] 13:14:49 Deviated nasal septum 602326283 Active 2024 YANNICK SANDERS [address] [facility] [address], [place], [address], [facility] - [facility] [place] 13:14:57 Hypertro phy of nasal turbinat es 20564329 Active 2024 YANNICK SANDERS [address] [facility] [address], [place], [address], [facility] - [facility] [place] 13:15:23 Mild intermit tent asthma 101259420 Active 2024 YANNICK SANDERS [address] [address], [place], [address], [facility] - [facility] [place] 13:15:35 Loss of sense of smell 98770613 Active 2024 YANNICK SANDERS [address] [address], [place], [address], [facility] - [facility] [place] 13:15:55 Problem Notes None recorded. Procedures Surgical History Date Name Laterality Status Provider Name and Address Organization Details Recorded Time 06/06/2025 NasalEndos copy_DP completed YANNICK SANDERS [address] [address], [place], [address], [facility] - [facility] 06/06/2025 12:54:15 Imaging Results None recorded. Procedure [...] oral liquid 2015 active Medicati on ID: [id number] B rand Name: Moon Brownquil Nighttim e [...] Updated DateTime 06/06/2025 160.02 cm 34.5 kg/m2 93409.51 g Bernadine Wellington [place] - [facility] 06/06/2025 09:02:05 Social History None recorded. [...] Disorder N Anesthesia Complications N Heart Attack ([place]) N Other Skin Condition N Diabetes N [...] ICD10 Code Diagnosis IMO Codes Diagnosis Note [id number] NORMA MOLINA MD [facility] of [address] [address] 06/06/2025 08:47:45 06/06/2025 09:32:36 Polyp of nasal cavity 663483684 J33.0 532543 Allergic rhinitis 034906 04 J30.89 5486475 Deviated nasal septum 12 1518645 J34.2 467110 Hypertroph y of nasal turbinates 11585051 J34.3 3224477 Mild inter mittent asthma 615006086 J45.20 5202658 Loss of se nse of smell 13012136 R43.0 41276 Health Concerns Section Related Observation LastModified by Organization Detai ls LastModified Time None Recorded Concern Status LastModified by Organization Details LastModified Time None Recorded Payers Encounter Date Sequence Insurance Name Policy Number Policy Danielson Covered Member ID Danielson Member ID Guarantor Name 06/06/2025 1 [facility] [employer] Smitha Willis [id number] Smitha Willis Notes Date Note Type Note [...] nasal trauma and surgery. NORMA MOLINA MD [address] [place] [address], [address], [facility] - [facility] 06/06/2025 17:08:11 OBGyn Episode No OBEpisode recorded.
--- OUTSIDE RECORDS SUMMARY | 2025-08-03 20:07 | XMS_ITS | Patient Health Record ---
[facility] Address [address] [place] [address] Care Team Providers Care Turbogenerator Operator Name Role Phone Eun DILL, [facility] Primary Care Provider Unavailab Benito Reyes Unavailable [phone] Allergies Allergen (clinical drug ingredient) Drug/Non Drug [...] W/U Status Risk Notes Problem Achilles bursitis (489138472) Achilles tendinitis, left leg (M76.62) Active confirmed Problem Peroneal tendinitis (30318772) Peroneal tendinitis, left leg (M76.72) Active confirmed Plan Of Treatment Pending Test Test Name Order Date X ray : Ankle, left 3V 07/03/2022 [id number] TENDON SHEATH/LIGAMENT 1 Insurance Providers Payer Name Payer Address Payer Phone Subscriber Number Group Number Insured Name Patient Relationship to Insured Coverage Start Date Coverage End Date [facility] [address] [place] [address] [id number] Smitha Willis Self - patient is the insured Medical (General) History Medical History History ICD Code Anxiety Arthritis asthma Back,Hip,and Knee pain Depression Chicken pox cyst, kidney Surgical History Surgery Date(Month/Year)
--- OUTSIDE RECORDS SUMMARY | 2025-08-03 20:07 | XMS_ITS | Encounter Summary ---
Author Organization [facility] Address [address] [place] [address] Care Team Providers Care Hoe Runner Name Role Phone Tequila Haq MD Primary Care Provider [phone] Encounter Details Date Type Department Care Team ([facility] Contact Info) Description 06/20/2025 Results Follow-Up Internal Medicine [facility] [address] [facility] [address] [place] [id number] Tequila Haq MD [address] [place] [address] Social History Tobacco Use Types Packs/Day Years Used Date Smoking Tobacco: Never Smokeless Tobacco: Never Alcohol Use Standard Drinks/Week Comments No 0 (1 standard drink = 0.6 oz pur e alcohol) Comments Unknown Sex and Gender Information Value Date Recorded Sex Assigned at Not on file Legal Sex Female 1:56 PM EST Gender Identity Not on file Sexual Orientation Not on file documented as of this encounter Ordered Prescriptions Prescription Sig Dispense Quantity Refills Last Filled Start Date End Date calcium carbonate-vitamin D3 600 mg-10 mcg (400 unit) capsule Take 1 capsule by mouth 2 (two) times a day. 180 each 2 06/20/2025 documented in this encounter Plan of Treatment Upcoming Encounters Date Type Department Care Team (Late Contact Info) Description 09/19/2025 7:15 AM EST Appointment [facility] [address] [place] [address] documented as of this encounter Visit Diagnoses Not on filedocumented in this encounter Care Teams Hoe Runner Relationship Specialty Start Date End Date Tequila Haq MD PCP - General Internal Medicine 01/11/19 documented as of this encounter
--- OUTSIDE RECORDS SUMMARY | 2025-08-03 20:07 | XMS_ITS | Data Portability ---
Author Organization [place] [facility], [facility] Address [address] [address] Care Team Providers Care Continuous Dryout Operator Name Role Phone SAMANTHA ESCALANTE Primary Care Provider [phone] Assessment Encounter Date Assessment Date Assessment LastModified [...] recorded. Imaging CT, sinuses, w/o contrast 2024 [email or web address] [facility], [address] [address], [place], [address], 13:51:38 Medication Orders prednisone 10 mg tablet 2024 025 [id number], [address] [place], [address], 13:01:19 budesonide 0.5 mg/2 mL suspension for nebulizati on 2024 025 [id number], [address] [place], [address], 13:21:37 Patient TargetsNo targets recorded. Patient InstructionsNo instructions recorded. Reason for Referral None Reported. Results Created Date Observation Date Name Description Value Unit Range Abnormal Flag Note LastModifiedBy Organization Detail LastModifiedTime 06/06/2006/06/2025 CBC WITH DIFFE RENTI AL/PL ATELE T WBC 5.8 x10e3 /uL 3.4-10 .8 normal Not Available [facility] ([facility]) [address] [facility], [place], [address], 06/08/2025 06:22:13 06/06/2006/06/2025 CBC WITH DIFFE RENTI AL/PL ATELE T RBC 4.56 x10e6 /uL 3.77-5 .28 normal Not Available [facility] ([facility]) [address] [place], [address], 06/08/2025 06:22:13 06/06/2006/06/2025 CBC WITH DIFFE RENTI AL/PL ATELE T hemoglobin 14.0 g/dL 11.1-1 5.9 normal Not Available [facility] ([facility]) [address] [place], [address], 06/08/2025 06:22:13 06/06/2006/06/2025 CBC WITH DIFFE RENTI AL/PL ATELE T hematocrit 43.7 % 34.0-4 6.6 normal Not Available [facility] ([facility]) [address] [place], [address], 06/08/2025 06:22:13 06/06/2006/06/2025 CBC WITH DIFFE RENTI AL/PL ATELE T MCV 96 fL 79-97 normal Not Available [facility] ([facility]) [address] [place], [address], 06/08/2025 06:22:13 06/06/2006/06/2025 CBC WITH DIFFE RENTI AL/PL ATELE T MCH 30.7 pg 26.6-3 3.0 normal Not Available [facility] ([facility]) [address] [place], [address], 06/08/2025 06:22:13 06/06/2006/06/2025 CBC WITH DIFFE RENTI AL/PL ATELE T MCHC 32.0 g/dL 31.5-3 5.7 normal Not Available [facility] ([facility]) [address] [place], [address], 06/08/2025 06:22:13 06/06/2006/06/2025 CBC WITH DIFFE RENTI AL/PL ATELE T RDW 13.0 % 11.7-1 5.4 Not Available [facility] ([facility]) [address] [facility], [place], [address], 06/08/2025 06:22:13 06/06/2006/06/2025 CBC WITH DIFFE RENTI AL/PL ATELE T platelets 313 x10e3 /uL 150-45 0 normal Not Available [facility] ([facility]) [address] [facility], [place], [address], 06/08/2025 06:22:13 06/06/2006/06/2025 CBC WITH DIFFE RENTI AL/PL ATELE T neutrophils 54 % not estab. normal Not Available [facility] ([facility]) [address] [facility], [place], [address], 06/08/2025 06:22:13 06/06/2006/06/2025 CBC WITH DIFFE RENTI AL/PL ATELE T lymphs 30 % not estab. normal Not Available [facility] ([facility]) [address] [facility], [place], [address], 06/08/2025 06:22:13 06/06/2006/06/2025 CBC WITH DIFFE RENTI AL/PL ATELE T monocytes 11 % not estab. normal Not Available [facility] ([facility]) [address] [facility], [place], [address], 06/08/2025 06:22:13 06/06/2006/06/2025 CBC WITH DIFFE RENTI AL/PL ATELE T eos 4 % not estab. normal Not Available [facility] ([facility]) [address] [facility], [place], [address], 06/08/2025 06:22:13 06/06/2006/06/2025 CBC WITH DIFFE RENTI AL/PL ATELE T basos 1 % not estab. normal Not Available [facility] ([facility]) [address] [facility], [place], [address], 06/08/2025 06:22:13 06/06/2006/06/2025 CBC WITH DIFFE RENTI AL/PL ATELE T immature cells DIRECT CASTING OPERATOR Not Available [facility] ([facility]) [address] [facility], [place], [address], 06/08/2025 06:22:13 06/06/2006/06/2025 CBC WITH DIFFE RENTI AL/PL ATELE T neutrophils (absolute) 3.2 x10e3 /uL 1.4-7. 0 normal Not Available [facility] ([facility]) [address] [facility], [place], [address], 06/08/2025 06:22:13 06/06/2006/06/2025 CBC WITH DIFFE RENTI AL/PL ATELE T lymphs (absolute) 1.7 x10e3 /uL 0.7-3. 1 normal Not Available [facility] ([facility]) [address] [place], [address], 06/08/2025 06:22:13 06/06/2006/06/2025 CBC WITH DIFFE RENTI AL/PL ATELE T monocytes(ab solute) 0.6 x10e3 /uL 0.1-0. 9 normal Not Available [facility] ([facility]) [address] [place], [address], 06/08/2025 06:22:13 06/06/2006/06/2025 CBC WITH DIFFE RENTI AL/PL ATELE T eos (absolute) 0.2 x10e3 /uL 0.0-0. 4 normal Not Available [facility] ([facility]) [address] [place], [address], 06/08/2025 06:22:13 06/06/2006/06/2025 CBC WITH DIFFE RENTI AL/PL ATELE T baso (absolute) 0.1 x10e3 /uL 0.0-0. 2 normal Not Available [facility] ([facility]) [address] [facility], [place], [address], 06/08/2025 06:22:13 06/06/2006/06/2025 CBC WITH DIFFE RENTI AL/PL ATELE T immature granulocytes 0 % not estab. Not Available [facility] ([facility]) [address] [facility], [place], [address], 06/08/2025 06:22:13 06/06/2006/06/2025 CBC WITH DIFFE RENTI AL/PL ATELE T immature grans (abs) 0.0 x10e3 /uL 0.0-0. 1 Not Available [facility] ([facility]) [address] [facility], [place], [address], 06/08/2025 06:22:13 06/06/20 25 06/06/2025 CBC WITH DIFFE RENTI AL/PL ATELE T NRBC DIRECT CASTING OPERATOR Not Available [facility] ([facility]) [address] [facility], [place], [address], 06/08/2025 06:22:13 06/06/2006/06/2025 CBC WITH DIFFE RENTI AL/PL ATELE T hematology comments: DIRECT CASTING OPERATOR Not Available [facility] ([facility]) [address] [facility], [place], [address], 06/08/2025 06:22:13 06/06/2006/08/2025 IMMUN OGLOB ULIN E, TOTAL immunoglobul in E, total 7 IU/mL 6-495 Not Available [facility] ([facility]) [address] [facility], [place], [address], 06/08/2025 06:22:16 07/05/20 25 07/04/2025 CT, sinus es, w/o contr ast No observ ation record ed. [email or web address] [facility] [address] [address], [place], [address], 07/14/2025 13:13:46 Result Notes None recorded. Problems Name Problem SNOMED Code Status Onset Date Resolution Date Notes Provider Name and Address Organization Details Recorded Time Polyp of nasal cavity 070623129 Active 2015 Polyp of nasal cavity; Note: Date Diagnosed : 11/20/2015 10:16 AM (J33.0) YANNICK SANDERS [address] [facility], [place], [address], [facility] - [facility] 09:26:48 Dizzines s and giddines s 849378475 Completed 201506/06/2025 Dizziness and giddiness ; Note: Date Diagnosed : 12/21/2015 2:57 PM (R42) YANNICK SANDERS [address] [facility],[address], [place], [address], [facility] - [facility] 12:55:08 Chronic sinusiti s 03802546 Completed 202406/06/2025 YANNICK SANDERS [address] [facility] [address], [facility], [address], [facility] - [facility] 12:55:10 Allergic rhinitis 24973717 Active 2024 YANNICK SANDERS [address] [facility], [place], [address], [facility] - [facility] 13:14:49 Deviated nasal septum 110655843 Active 2024 YANNICK SANDERS [address] [facility] [address], [place], [address], [facility] - [facility] 13:14:57 Hypertro phy of nasal turbinat es 87775485 Active 2024 YANNICK SANDERS [address] [facility] [address], [facility] [place], [address], [facility] - [facility] 13:15:23 Mild intermit tent asthma 888104761 Active 2024 YANNICK SANDERS [address] [facility],[address] [address], [place], [address], [facility] - [facility] 13:15:35 Loss of sense of smell 93892927 Active 2024 YANNICK SANDERS [address] [facility], [place], [address], [facility] - [facility] 13:15:55 Problem Notes None recorded. Procedures Surgical History Date Name Laterality Status Provider Name and Address Organization Details Recorded Time 06/06/2025 NasalEndos copy_DP completed YANNICK SANDERS [address] [facility] [address], [place], [address], [facility] - [facility] 06/06/2025 12:54:15 Imaging Results None recorded. Procedure [...] oral liquid 2015 active Medicati on ID: [id number] B rand Name: Moon Brownquil Nighttim e [...] Updated DateTime 06/06/2025 160.02 cm 34.5 kg/m2 68559.51 g Bernadine [place] - [facility] 06/06/2025 09:02:05 Social History None recorded. [...] ICD10 Code Diagnosis IMO Codes Diagnosis Note [id number] NORMA MOLINA MD [facility] [address] [address] 06/06/2025 08:47:45 06/06/2025 09:32:36 Polyp of nasal cavity 240196184 J33.0 588097 Allergic rhinitis 796503 04 J30.89 1014228 Deviated nasal septum 12 3391456 J34.2 127428 Hypertroph y of nasal turbinates 19372564 J34.3 9929378 Mild inter mittent asthma 006712391 J45.20 5981007 Loss of se nse of smell 69809132 R43.0 12110 Health Concerns Section Related Observation LastModified by Organization Detai ls LastModified Time None Recorded Concern Status LastModified by Organization Details LastModified Time None Recorded Advance Directives Directive None Recorded Payers Insurance Date Sequence Insurance Name Policy Number Policy Danielson Covered Member ID Danielson Member ID Guarantor Name 06/06/2025 1 [employer] Smitha Willis [id number] Smitha Willis 06/06/2025 1 [facility] [id number] Smitha Colon [id number] Smitha [place] Notes Date Note Type Note Provider Name [...] nasal trauma and surgery. NORMA MOLINA MD [address] [place] [address], [address], [facility] - [facility] 06/06/2025 17:08:11 OBGyn Episode No OBEpisode recorded.
== END 2025-08-03 15:11 | disposition home or self-care (01) ==
LOC: HO.HOS 14:44
PROVIDERS: PCP Internal Medicine; Visit Provider Orthopaedic Surgery
DX: M17.12 Unilateral primary osteoarthritis, left knee (principal)
CPT/HCPCS: 20610; 99213

== ENCOUNTER → 2025-08-03 14:43 | Outpatient (BNVA) | payer OTHER, SELFPAY | PROVIDERS: PCP Internal Medicine; Visit Provider Orthopaedic Surgery | DX: M17.12 Unilateral primary osteoarthritis, left knee (principal) | CPT/HCPCS: 20610; J1010; J2003 ==